=== PATIENT | male | born 1960 | race Caucasian/White ===

== ENCOUNTER → 2024-08-15 | Outpatient (CLI) | payer MEDICARE, MEDICAID, SELFPAY ==
--- NOTE | 2024-08-15 16:17 | MRI_ITS ---
PROCEDURE: SPINE LUMBAR (ROUTINE) 08/15/2024 REASON FOR EXAM: PAIN TECHNIQUE: Multiplanar and multisequence images were obtained without IV contrast administration. COMPARISON: Radiographs on 06/27/2024. FINDINGS: Moderate chronic changes of Scheuermann's disease. Moderate chronic changes of Baastrup's disease. Multilevel disc dehydration. Multilevel disc space narrowing with diffuse spondylosis. Spinal stimulator device is noted. There is normal signal intensity from the visualized bone marrow without evidence of replacement or acute fracture. The conus is unremarkable. Straightening of the lumbar lordosis, probably muscular spasm and pain. Evaluation of the individual levels revealed the following: L5-S1: There is grade 1 retrolisthesis measuring 3.2 mm. Mild diffuse disc bulge. Superimposed broad-based left posterolateral/foraminal disc protrusion measuring 5.7 mm. Bilateral facet joint arthropathy and ligamentum flavum hypertrophy. The spinal canal is not narrowed. There is mild right and moderate left neural foramina narrowing. L4-5: There is mild diffuse disc bulge. Bilateral facet joint arthropathy and ligamentum flavum hypertrophy. The spinal canal is mildly narrowed. There is moderate bilateral neural foramina narrowing. L3-4: There is mild diffuse disc bulge. Facet joint arthropathy and ligamentum flavum hypertrophy. The spinal canal is moderately narrowed. There is moderate bilateral neural foramina narrowing. L2-3: There is moderate diffuse disc bulge. Facet joint arthropathy and ligamentum flavum hypertrophy. The spinal canal is moderately narrowed. There is moderate bilateral neural foramina narrowing. L1-2: There is mild diffuse disc bulge. Bilateral facet joint arthropathy and ligamentum flavum hypertrophy. The spinal canal is not narrowed. There is mild bilateral neural foramina narrowing. T12-L1: There is mild diffuse disc bulge. Bilateral facet joint arthropathy and ligamentum flavum hypertrophy. The spinal canal is not narrowed. There is mild bilateral neural foramina narrowing. Normal visualized paraspinous soft tissue structures. MRI/Spine Lumbar (Routine) IMPRESSION: Spondylosis. Degenerative disc disease. Reading [facility]
== END | disposition home or self-care (01) ==
PROVIDERS: Referring Provider Student in an Organized Health Care Education/Training Program; Visit Provider Student in an Organized Health Care Education/Training Program
DX: M51.369 Other intervertebral disc degeneration, lumbar region without mention of lumbar back pain or lower extremity pain (principal)
CPT/HCPCS: 72148

== ENCOUNTER 2024-12-09 15:42 | Inpatient (IN) | payer MEDICARE, MEDICAID, SELFPAY ==
--- NOTE | 2024-11-26 13:12 | EKG12_ITS ---
Test Reason : PREOP Blood Pressure : */* mmHG Vent. Rate : 58 BPM Atrial Rate : 58 BPM P-R Int : 158 ms QRS Dur : 100 ms QT Int : 418 ms P-R-T Axes : 42 -2 3 degrees QTcB Int : 410 ms Sinus bradycardia Cannot rule out Inferior infarct , age undetermined Abnormal ECG No previous ECGs available Confirmed by ALONSO ROGERS, GRAEME ([id number]), technical editor CECE NARVAEZ ([id number]) on 11/27/2024 8:13:05 AM Referred By: Amado Rivera Confirmed By: GRAEME GUPTA MD
[2024-11-26 14:09] LABS: Hematocrit 38.3 % (40-54); Hemoglobin 12.5 g/dL (13.0-16.5); Immature Granulocytes Count 0.010 X10^3/uL (0.0-0.0); Mean Corp Hgb Conc 32.6 g/dL (32-36); Mean Corpuscular Volume 87.8 fL (80-94); Mean Platelet Vol. 11.1 fl (6.2-12.0); NRBC Flagged by Analyzer 0 % (0-5); Platelet Count 262 K/mm3 (150-450); RBC Distribution Width CV 14.8 % (11.6-14.6); RBC Distribution Width SD 48.1 fl (35.1-43.9); Red Blood Count 4.36 M/mm3 (4.6-6.2); White Blood Count 3.8 K/mm3 (4.4-11.0)
[2024-11-26 15:03] LABS: Anion Gap 11 (5-15); BUN 9 mg/dL (4-19); BUN/Creat Ratio 8.1 RATIO (10-20); Calcium,Total 9.3 mg/dL (7.6-11.0); Carbon Dioxide 25.4 mmol/L (21.0-32.0); Chloride 104 mmol/L (98-108); Glucose 95 mg/dL (70-99); Magnesium 2.1 mg/dL (1.5-2.2); Potassium 4.4 mmol/L (3.3-5.1)
--- NOTE | 2024-11-27 14:56 | PAT.ANE_ITS ---
Pre-Assessment Diagnosis/Proposed Procedure Planned Operative Procedure(s): ERAS, 360 Lumbar Fusion L2-3, L3-4 and L4-5 Anesthesia History Anesthesia History - production troubleshooter: Anesthesia History - production troubleshooter Hx Hospitalization No 11/25/24 10:52 Any Problems With Anesthesia No 11/25/24 10:52 Cholinesterase deficiency No 11/25/24 10:52 You/Your Family Experience No 11/25/24 10:52 fever (hyperthermia) with Relationship Recent Exposure to Contagious Disease Does patient have nerve Yes: BACK STIMULATOR- 11/25/24 10:52 stimulator INSTRUCTOR TO TURN OFF DOS Patient instructed to have device shut off --Does patient have Pacemaker or ICD? When Was Last Pacemaker Check QUESTION #4 FULL TEXT: You/Your Family Experience fever (hyperthermia) with Anesthesia Last Oral Intake Last Oral intake: Last Oral Intake NPO since Meds taken in AM with sips of water? Meds patient instructed to take am of surgery PONV PONV - production troubleshooter: PONV - production troubleshooter Female No 11/25/24 10:52 HX of Motion Sickness No 11/25/24 10:52 HX of N/V After Surgery No 11/25/24 10:52 Non-Smoker Yes 11/25/24 10:52 Duration of Surgery greater Yes 11/25/24 10:52 than 60 minutes Number of Risk Factors 2 11/25/24 10:52 PONV Score Moderate Risk 11/25/24 10:52 Height & Weight Height & Weight: Anesthesia: Height & Weight Height 6 ft 5 in 08/22/24 14:25 Respiratory Assessment Respiratory Assessment - production troubleshooter: Respiratory Tract Infection Hx - production troubleshooter Hx Respiratory Tract Infection No 11/25/24 10:52 STOP Sleep Apnea STOP Sleep Apnea - production troubleshooter: STOP Sleep Apnea - production troubleshooter Hx Hypertension Yes: CONTROLLED ON MEDS 11/25/24 10:52 Hx Sleep Apnea Yes 11/25/24 10:52 CPAP Yes 11/25/24 10:52 BIPAP No 11/25/24 10:52 Do you snore loudly (louder than talking or can be heard Do you often feel tired/ fatigued/ sleepy during daytime? Has anyone observed you stop breathing during sleep? STOP Results Positive 11/25/24 10:52 QUESTION #5 FULL TEXT : Do you snore loudly (louder than talking or can be heard through closed doors)? Tobacco Use History Tobacco Use History - production troubleshooter: Tobacco Use History - production troubleshooter Tobacco Use Smoking Status Never smoker 11/25/24 10:52 Hx Tobacco Use No 11/25/24 10:52 Years Smoking Packs Smoked per Day Smoking Cessation Date was within the last 15 years Hx Smoking Cessation Date Hx Smoking Cessation Counseling Hematologic Medial History Hematologic Hx - production troubleshooter: Hematologic Medical Hx - microsoft dynamics ax developer Hx of Blood Transfusion No 11/25/24 10:52 Hx of Transfusion in last 3 No 11/25/24 10:52 Months Date of Last Transfusion (if within last 3 months) Ever experience any problems No 11/25/24 10:52 with transfusion(s)? Specify any problems Hx of Preganancy in last 3 N/A 11/25/24 10:52 Months Nurse Filling Out Transfusion VCHRISTIN 11/25/24 10:52 & Questions: Date: 11/25/24 11/25/24 10:52 Time: 10:54 11/25/24 10:52 Patient unable to answer at this time (ie. confused, unrespo /Reproduction History /Reproductive History - production troubleshooter: /Reproductive Hx- production troubleshooter Hx Now No 11/25/24 10:52 Gestational Age (in weeks): EDC: Hx Hx Para Hx Section SAB No 11/25/24 10:52 [facility] Medical History (Updated 11/25/24 @ 10:51 by Mary Del Castillo) Wears glasses Depression Anxiety Arthritis Back pain Injury of back Gastric reflux CPAP (continuous positive airway pressure) dependence Sleep apnea Hypertension Foraminal stenosis of lumbar region Ulcer at site of surgical anastomosis following bypass of stomach Fusion of toes of left foot Amputated right leg High blood pressure Home Medications ?Medication ?Instructions ?Recorded ?Last Taken ?Type cariprazine 1.5 mg capsule 1.5 mg PO QDAY ANTIDEPRESSA NT 06/27/24 Unknown History (Vraylar) celecoxib 200 mg capsule 400 mg PO BID PAIN 06/27/24 Unknown History dextromethorphan IR 45 1 tab PO QAM DEPRESSION 06/05 06/28 Unknown History mg-bupropion ER 105 mg biphasic tablet (Auvelity) amlodipine 5 mg tablet 5 mg PO DAILY BP 11/25/24 Un known History benazepril 40 mg tablet 40 mg PO DAILY BP 11/25/24 U nknown History buprenorphine 15 mcg/hour weekly 1 patch transdermal Q WEEK PAIN 11/25/24 Unknown History transdermal patch omeprazole 40 mg capsule,delayed 40 mg PO BID GERD Unknown History release pregabalin 300 mg capsule 300 mg PO BID PAIN 11/25/24 Unknown History tamsulosin 0.4 mg capsule 0.4 mg PO DAILY URINATION Unknown History trazodone 50 mg tablet 100 mg PO QHS SLEEP 11/25/24 Unknown History venlafaxine 75 mg capsule,extended 75 mg PO BID NEUROP ATHY 11/25/24 Unknown History release 24 hr Allergy/AdvReac Type Severity Reaction Status Date / Time gabapentin Allergy Severe Halusinatio Verified 11/25/24 10:35 n Corticosteroids AdvReac Severe Other Verified 11/25/24 10:52 (Glucocorticoids) (steroids) Family History Mother No problems noted. Father Heart disease heart attack Surgical History (Updated 11/25/24 @ 10:51 by Mary Del Castillo) Hx of bariatric surgery Hx of surgical procedure Status post right knee replacement Social History Smoking Status: Never smoker alcohol intake: never Audit: Pertinent Findings Pertinent Findings EKG Perinent findings: EKG 11/26/2024. Sinus bradycardia. Recommendation Anesthesia Recommendation Anesthesia recommendation: OPTIMIZED for anesthesia
[2024-12-09] VITALS (18 sets, daily range): BP systolic 130–165; BP diastolic 62–95; PULSE 59–80; RESP 14–18; TEMP 36.6–36.9; O2SAT 96–100; BMI 30.8; BMI 30.7
[2024-12-09] MEDS: Magnesium 1 GM over 15 mins IV (09:17)
[2024-12-09] MEDS: Lactated Ringers 1,000 ML 15 ML IV (09:18)
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
--- NOTE | 2024-12-09 09:54 | PCM.PRE.AN2 ---
ASA Classification* ASA Classification ASA Classification: 2 Assessment & Plan Anesthesia* Anesthesia Assessment Anesthesia Assessment: Discussed sedation and/or anesthesia options, risks, benefits, and alternatives with patient/parents/legal guardian/POA. Questions invited. The patient/parents/legal guardian/POA seems to understand and agrees to proceed with anesthesia plan. Reviewed the physical assessment, medical history, allergy history and patient home medications list prior to surgery/procedure/anesthetic and documented any changes. Performed airway and anesthesia risk assessments. Anesthesia Type Anesthesia Type: General History Source History Obtained from:: Patient and Chart Anesthesia Focused Assessment* Temperature: 98.3 F Pulse Rate: 62 Blood Pressure: 165/95 Respiratory Rate: 16 Pulse Ox: 100 Oxygen Delivery Method: Room Air Airway Assessment Mouth opens: >3 cm Mallampati Score: III Teeth Condition: Missing (Patient has several missing teeth. Rest are tight.) Neck Range of motion (ROM): Limited ROM (Somewhat Decreased) Labs Anesthesia Preop lab: CBC WBC, (4.4-11.0) 3.8 K/mm3 L 11/26/24, 12:59 RBC, (4.6-6.2) 4.36 M/mm3 L 11/26/24, 12:59 Hgb, (13.0-16.5) 12.5 g/dL L 11/26/24, 12:59 Hct, (40-54) 38.3 % L 11/26/24, 12:59 Plt Count, (150-450) 262 K/mm3 11/26/24, 12:59 CHEMISTRY Potassium, (3.3-5.1) 4.4 mmol/L 11/26/24, 12:59 Sodium, (133-145) 141 mmol/L 11/26/24, 12:59 Magnesium, (1.5-2.2) 2.1 mg/dL 11/26/24, 12:59 BUN, (4-19) 9 mg/dL 11/26/24, 12:59 Creatinine, (0.70-1.20) 1.05 mg/dL 11/26/24, 12:59 Glucose, (70-99) 95 mg/dL 11/26/24, 12:59 POC Glucose, (74-106) 75 mg/dL Today, 08:51 COAG Pre-Assessment Diagnosis/Proposed Procedure Planned Operative Procedure(s): ERAS, 360 Lumbar Fusion L2-3, L3-4 and L4-5 Anesthesia History Anesthesia History - general foreman: Anesthesia History - general foreman Hx Hospitalization No 11/25/24 10:52 Any Problems With Anesthesia No 11/25/24 10:52 Cholinesterase deficiency No 11/25/24 10:52 You/Your Family Experience No 11/25/24 10:52 fever (hyperthermia) with Relationship Recent Exposure to Contagious No 12/09/24 09:01 Disease Does patient have nerve Yes: BACK STIMULATOR- 11/25/24 10:52 stimulator INSTRUCTOR TO TURN OFF DOS Patient instructed to have device shut off --Does patient have Pacemaker No 12/09/24 08:45 or ICD? When Was Last Pacemaker Check QUESTION #4 FULL TEXT: You/Your Family Experience fever (hyperthermia) with Anesthesia Last Oral Intake Last Oral intake: Last Oral Intake NPO since 05:00 12/09/24 08:45 Meds taken in AM with sips of Yes 12/09/24 08:45 water? Meds patient instructed to take am of surgery Any additional information?: Yes NPO since: 05:00 (Patient has preop Ensure at 5 AM.) Meds taken in AM with sips of water?: Yes PONV PONV - general foreman: PONV - general foreman Female No 11/25/24 10:52 HX of Motion Sickness No 11/25/24 10:52 HX of N/V After Surgery No 11/25/24 10:52 Non-Smoker Yes 11/25/24 10:52 Duration of Surgery greater Yes 11/25/24 10:52 than 60 minutes Number of Risk Factors 2 11/25/24 10:52 PONV Score Moderate Risk 11/25/24 10:52 Height & Weight Height & Weight: Anesthesia: Height & Weight Height 6 ft 5 in 12/09/24 08:45 Weight: 118 kg 12/09/24 08:45 Body Mass Index (BMI) 30.8 12/09/24 08:45 Respiratory Assessment Respiratory Assessment - general foreman: Respiratory Tract Infection Hx - general foreman Hx Respiratory Tract Infection No 11/25/24 10:52 STOP Sleep Apnea STOP Sleep Apnea - general foreman: STOP Sleep Apnea - general foreman Hx Hypertension Yes: CONTROLLED ON MEDS 11/25/24 10:52 Hx Sleep Apnea Yes 11/25/24 10:52 CPAP Yes 11/25/24 10:52 BIPAP No 11/25/24 10:52 Do you snore loudly (louder than talking or can be heard Do you often feel tired/ fatigued/ sleepy during daytime? Has anyone observed you stop breathing during sleep? STOP Results Positive 11/25/24 10:52 QUESTION #5 FULL TEXT : Do you snore loudly (louder than talking or can be heard through closed doors)? Tobacco Use History Tobacco Use History - general foreman: Tobacco Use History - general foreman Tobacco Use Smoking Status Never smoker 12/03/24 11:01 Hx Tobacco Use No 11/25/24 10:52 Years Smoking Packs Smoked per Day Smoking Cessation Date was within the last 15 years Hx Smoking Cessation Date Hx Smoking Cessation Counseling Hematologic Medial History Hematologic Hx - general foreman: Hematologic Medical Hx - roller print tender Hx of Blood Transfusion No 11/25/24 10:52 Hx of Transfusion in last 3 No 11/25/24 10:52 Months Date of Last Transfusion (if within last 3 months) Ever experience any problems No 11/25/24 10:52 with transfusion(s)? Specify any problems Hx of Preganancy in last 3 N/A 11/25/24 10:52 Months Nurse Filling Out Transfusion VCHRISTIN 11/25/24 10:52 & Questions: Date: 11/25/24 11/25/24 10:52 Time: 10:54 11/25/24 10:52 Patient unable to answer at this time (ie. confused, unrespo /Reproduction History /Reproductive History - general foreman: /Reproductive Hx- general foreman Hx Now No 11/25/24 10:52 Gestational Age (in weeks): EDC: Hx Hx Para Hx Section SAB No 11/25/24 10:52 Active Medications Active Medications: Current Medications Generic Name Dose Route Start Last Admin Trade Name Freq PRN Reason Stop Dose Admin Lactated Ringer's 1,000 mls @ 15 mls/hr 12/09/24 08:30 12/09/24 09:18 IV 15 mls/hr .Q48H VIKTORIA Administration Insulin Human Lispro 1 - 6 unit 12/09/24 07:30 Insulin Lispro 100 Unit/Ml Insuln.Pen SC 12/09/24 18:00 Q4H PRN PRN BG>/= 180, SEE PROTOCOL Protocol PFSH Medical History Wears glasses Depression Anxiety Arthritis Back pain Injury of back Gastric reflux CPAP (continuous positive airway pressure) dependence Sleep apnea Hypertension Foraminal stenosis of lumbar region Ulcer at site of surgical anastomosis following bypass of stomach Fusion of toes of left foot Amputated right leg High blood pressure Home Medications ?Medication ?Instructions ?Recorded ?Last Taken ?Type cariprazine 1.5 mg capsule 1.5 mg PO QDAY ANTIDEPRESSANT 06/27/24 12/09/24 05:00 History (Vraylar) celecoxib 200 mg capsule 400 mg PO BID PAIN 06/27/24 Unknown History dextromethorphan IR 45 1 tab PO QAM DEPRESSION 06/27/24 12/09/24 05:00 History mg-bupropion ER 105 mg biphasic tablet (Auvelity) amlodipine 5 mg tablet 5 mg PO DAILY BP 11/25/24 12/09/24 05:00 History benazepril 40 mg tablet 40 mg PO DAILY BP 11/25/24 12/09/24 05:00 History buprenorphine 15 mcg/hour weekly 1 patch transdermal QWEEK PAIN 11/25/24 Unknown History transdermal patch omeprazole 40 mg capsule,delayed 40 mg PO BID GERD 11/25/24 12/09/24 05:00 History release pregabalin 300 mg capsule 300 mg PO BID PAIN 11/25/24 12/09/24 05:00 History tamsulosin 0.4 mg capsule 0.4 mg PO DAILY URINATION 11/25/24 12/09/24 05:00 History trazodone 50 mg tablet 100 mg PO QHS SLEEP 11/25/24 Unknown History venlafaxine 75 mg capsule,extended 75 mg PO BID NEUROPATHY 11/25/24 12/09/24 05:00 History release 24 hr Allergy/AdvReac Type Severity Reaction Status Date / Time gabapentin Allergy Severe Halusinatio Verified 12/09/24 08:38 n Corticosteroids AdvReac Severe Other Verified 12/09/24 08:38 (Glucocorticoids) (steroids) Family History Mother No problems noted. Father Heart disease heart attack Surgical History Hx of bariatric surgery Hx of surgical procedure Status post right knee replacement Social History Smoking Status: Never smoker alcohol intake: current alcohol intake frequency: holidays/special occasions only substance use type: does not use Review of Systems (Anesthesia) ROS Narrative System reviewed and no additional complaints, except as documented.
[2024-12-09] MEDS: Midazolam 2 MG/2 ML Syringe IV (10:26)
[2024-12-09] MEDS: Cefazolin 1 GM/5 ML Vial 2 GM IV (10:26)
[2024-12-09] MEDS: Lidocaine 1% (5 ml sdv) 5 ML Vial 10 ML IV (10:32)
--- NOTE | 2024-12-09 10:35 | RAD_ITS ---
PROCEDURE: LUMBAR SPINE 2 OR 3 VIEWS 12/09/2024 REASON FOR EXAM: 360 LUMBAR FUSION L2-3 L3-4 L4-5 TECHNIQUE: Procedure Code: RADSPLL Modality: DX Procedure: LUMBAR SPINE 2 OR 3 VIEWS Fluoroscopy time: 80 seconds Total images: 20 COMPARISON: August 15, 2024 FINDINGS: Fluoroscopic spot images were obtained over the lower lumbar spine. It is assumed that the patient has 5 lumbar type vertebral bodies. Initial images show instrumentation at the level of L4/5 followed by placement of a disc spacer. Another place at L2/3 and L3/4. Solitary screw on the right at L3/4. Subsequent placement of pedicle screws and rods at L2, L4 and L5. Alignment is anatomic. RAD/Lumbar Spine 2 or 3 Views IMPRESSION: Fluoroscopic localization and guidance. Correlate with procedural note. Reading Location: [id number]
[2024-12-09] MEDS: fentaNYL 100 MCG/2 ML Ampul 200 MCG IV (12:46)
[2024-12-09] MEDS: TRANEXAMIC ACID 1,000 MG/10 ML ML 2000 MG IV (15:11)
--- NOTE | 2024-12-09 15:49 | PCM.POST.ANE ---
Anesthesia: Postop Eval I Current Vital Signs Temperature: 98.4 F Pulse Rate: 71 Blood Pressure: 130/71 Respiratory Rate: 14 Pulse Ox: 96 Assessment Airway patent: Yes Spontaneous unlabored respirations: Yes nausea: No Vomiting: No Anesthesia Complication: No Fluid Hydration Crystalloid volume administer (ml): 2,300 Total IV fluid infused: 2,300 Progress Note Anesthesia document: Postop Eval 1 completed: Yes
--- NOTE | 2024-12-09 15:54 | OP.PCM_ITS ---
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, stenosis with neurogenic claudication Post-Operative Diagnosis: Same Surgery/Procedure Performed: L2-5 oblique lumbar interbody fusion graphite mill operator: Yes Paint Technician: Carolina Benites Tasks completed by retail administrative assistant: Closing, Removing tissue, Hemostasis: Electrocautery and Retracting Type of Anesthesia: General RN Documented Start/Stop Times: Operation Date: 12/09/24 10:30 Case Time Into Pre-Op 12/09/24 08:23 Out of Pre-Op 12/09/24 10:25 Anesthesia Start 12/09/24 10:26 Into Room 12/09/24 10:26 Procedure Start 12/09/24 11:06 Procedure End 12/09/24 15:38 Anesthesia End 12/09/24 15:44 Out of Room 12/09/24 15:44 Into Recovery 12/09/24 15:46 Procedure Start Time: 11:06 Procedure Stop Time: 15:38 Select all DRAINS/GRAFTS/IMPLANTS that apply: Graft Graft details: Allograft cancellous chips and Implanted device Implanted device details: DePuy cougar lateral lumbar interbody cage?peek Estimated Blood Loss: 50 cc Specimen collected: No Description of surgery: Preoperative diagnosis: 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 L2-3 anterolateral spinal fusion 96090 ? L3-4 anterolateral fusion 42797/51 ? L4-5 anterolateral fusion 46753/51 ? L2-3 insertion of cage 51392 ? L3-4 insertion of cage 79438/51 ? L4-5 insertion of cage 42790/51 ? Bone graft aspirate left iliac crest separate incision ? Allograft cancellous chips Attending Surgeon: Dr. Amado Rivera Estimated blood loss: 50 cc Anesthesia: General Complications: None Indications: Patient is a 64-year-old pleasant gentleman who has had a long history of low back pain and lower extremity radiation, difficulty walking distances. Xrays & MRI revealed 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 with stenosis, prior spondylosis with replacement. After undergoing a prolonged period of nonoperative treatment, the patient elected to undergo surgical decompression & fusion. All surgical options were discussed with the patient including anterior and posterior approaches. All risks and benefits associated with the procedure were explained to the patient. The risks include but are not limited to infection, bleeding, injury to nerves and vessels including major vessels like IVC and aorta, persistent paresthesia, persistent pain, dural tear, need for further procedures, adjacent segment degeneration, pseudoarthrosis, hardware failure, retrograde ejaculation, paralytic ileus, etc. Procedure: The patient was identified in the preoperative holding suite using Unique patient identifiers. Skin was marked, consent was reviewed, and all questions were answered. The patient was then brought back to the operative room. A surgical timeout was performed to make sure correct procedure was being done on the correct patient and all operative room staff were on the same page. General endotracheal anesthesia was then given to the patient. Benitez catheter was inserted. The patient was then carefully positioned in right lateral decubitus position with the left side up on a regular OR table. Axillary roll was placed and all bony prominences were well- padded. Hip positioners were placed in the posterior buttocks and anterior sternal area. The surgical area was prepped and draped in usual fashion. Preoperative antibiotic was injected IV as preoperative antibiotic. A final timeout was then again done just before starting the procedure. A 2 inch incision oblique was taken in the left lower quadrant of the abdomen 2 fingerbreadths away from the iliac crest and the lower ribs. Sharp dissection with Bovie was carried out up to the fascia covering the external oblique. The external oblique, internal oblique and transversus abdominis muscles were split along the muscle fibers and retroperitoneal space was entered. Sponge sticks were utilized to move the bowel and peritoneum mek-nn-bit-way and psoas muscle was exposed staying within the retroperitoneal plane. LiveHealthierframe retractor system was positioned and the retractor blade was applied onto the psoas. The interval between psoas and midline structures was developed and appropriate retractors were placed. Once adequate interval was cleared, a disc space was identified and a marker x-ray was taken. This identified the L4-5 disc level. The prepsoas interval was then traced inferiorly. Annulotomy was done with a long handled knife. Pituitary was used to remove disc material. Curettes were used to prepare the endplates. Disc space spreaders were utilized to distract and increase the disc height. Near complete discectomy was performed. Trials of serially increasing sizes were used. A Jamshidi needle was used to aspirate bone marrow from the left anterior iliac crest through a separate incision and this aspirate was mixed with the allograft bone chips. A Depuy [place] cage of size of the 18 x 55 x 10 mm with 15 degrees lordosis was packed with corticocancellous allograft bone chips mixed with bone marrow aspirate. This was inserted into the L4-5 disc space. The retractors were then repositioned to expose the L3-4 and L2-3 disc and the procedure was repeated with complete discectomy and endplate preparation. Smaller disc distractors were also used to bluntly perform a contralateral annulotomy at all 3 levels. Cage size was 18 x 55 x 10 mm at L3-4 and L2-3. AP and lateral C-arm pictures were taken to confirm good position of the cage. Some bone chips were also packed around the cages. Screw with washer was placed into the lower L2 body with a washer partially covering the cage at L2-3. Hemostasis was confirmed. The retractor blades were removed. Closure was done in layers with a continuous strand of # 1 Vicryl in all muscle layers. 2-0 Vicryl was used for subcutaneous tissue and 4-0 for Monocryl for the skin. Steri-Strips were applied and 4 x 4 gauze and Tegaderm were applied. Panel Sewer Carolina Benites PA-C. My physician sugar laboratory assistant was a vital part of this case. They were important in appropriate retraction during the case, and protection of soft tissues during the procedure. Their intimate knowledge of the case and my steps aided in safe and expedient completion of the procedure as well as appropriate position of the patient during the surgery. They were also vital in assisting with closure under my direct supervision. Surgical Findings: See operative note Complications Complications: No
--- NOTE | 2024-12-09 16:05 | OP.PCM_ITS ---
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, stenosis with neurogenic claudication Post-Operative Diagnosis: Same Surgery/Procedure Performed: L2-5 posterior spinal instrumented fusion sanitary napkin machine tender: Yes Director Operations Broadcast: Carolina Benites Tasks completed by assistant store manager trainee: Closing, Removing tissue, Hemostasis: Electrocautery and Retracting Type of Anesthesia: General RN Documented Start/Stop Times: Operation Date: 12/09/24 10:30 Case Time Into Pre-Op 12/09/24 08:23 Out of Pre-Op 12/09/24 10:25 Anesthesia Start 12/09/24 10:26 Into Room 12/09/24 10:26 Procedure Start 12/09/24 11:06 Procedure End 12/09/24 15:38 Anesthesia End 12/09/24 15:44 Out of Room 12/09/24 15:44 Into Recovery 12/09/24 15:46 Procedure Start Time: 11:06 Procedure Stop Time: 15:38 Select all DRAINS/GRAFTS/IMPLANTS that apply: Graft Graft details: Allograft cancellous chips and Implanted device Implanted device details: [employer] Control Systemser prime pedicle screw instrumentation Estimated Blood Loss: 50 cc Specimen collected: No Description of surgery: Preoperative diagnosis: 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 L2-3 posterior spinal fusion 83821 ? L2-5 posterior pedicle screw instrumentation 30559 ? L3-4 posterior fusion 55735/51 ? L4-5 posterior fusion 64948/51 ? Allograft cancellous chips [id number] Attending Surgeon: Dr. Amado Rivera Estimated blood loss: 50 mL (total for entire case) Anesthesia: General Complications: None Description of procedure: After the anterior procedure was complete, the patient was then turned supine. The patient was then transferred to Christian table in prone position. Back was prepped and draped in usual fashion. C-arm AP view was then taken. C-arm was positioned in a way that L2 was centralized and superior endplate of was parallel to the beam. Spinous process was centered between the pedicles. Midline was marked with skin marker and lateral borders of the pedicles were also marked. Skin marker was also utilized to jorge transversely across the middle of the pedicles at L2. 2 transverse paramedian incisions of 1 inch were placed. The fascia was incised vertically. Finger dissection was utilized to palpate the transverse process and facet joint. Viper Prime screws with towers were inserted and docked onto the transverse processes. This was then slowly moved medially to reach the superior articular process of L2. This was then confirmed on C-arm and then a mallet was utilized to drive the trocar into the pedicle going up to the medial wall of the pedicle on AP view. This was performed both sides. C-arm lateral view confirmed that the tip of the trocar was in the vertebral body, and the screw was advanced into the pedicle and vertebral body. This was repeated similarly at L4 and L5 bilaterally. Screw sizes were 7 x 55 mm at L2, L4 and L5 on both sides. 110 mm precontoured titanium 5.5 mm lordotic mona on both sides were then passed through the screw extensions and reduced down to the screws with the help of [employer] Viper instrumentation system on both sides. AP and lateral view of the C-arm showed good positioning of the screws and cages. Final tightening with the torque screwdriver was then completed. Matthew was utilized to roughen the facet joint at L2-3, L3-4, L4-5 on the right side. Cancellous allograft bone chips mixed with bone marrow aspirate were then placed over this decorticated area. Hemostasis was achieved. Closure was done in layers with 0 Vicryls for the fascia, 2-0 Vicryls for the subcutaneous tissue, and Monocryl for the skin. Dermabond was applied. Dressings were applied covered with Tegaderm. The patient was then turned supine onto a hospital bed. The patient was extubated and taken to PACU in stable condition. The patient tolerated the procedure well and no complications occurred. Depuy [place] cage & Viper Prime minimally invasive pedicle screw instrumentation system was utilized in this case. No dural tear was identified intraoperatively. I was present for the entirety of the case and performed the surgery. Manager Culinary Carolina Benites PA-C. My physician chemistry research assistant was a vital part of this case. They were important in appropriate retraction during the case, and prot ection of soft tissues during the procedure. Their intimate knowledge of the case and my steps aided in safe and expedient completion of the procedure as well as appropriate position of the patient during the surgery. They were also vital in assisting with closure under my direct supervision. Surgical Findings: See operative note Complications Complications: No
--- NOTE | 2024-12-09 17:11 | POSTOPAN2_ITS ---
Anesthesia Postop Eval I Sum Postop Eval Completion status Anesthesia document: Postop Eval 1 completed: Yes Anesthesia Postop Eval I Summary Anesthesia Postop Eval I Summary: Anesthesia Postop Eval I: Assessment Summary Airway patent Yes 12/09/24 15:49 [place] [email or web address] Spontaneous unlabored Yes 12/09/24 15:49 [place] [email or web address].[email or web address] respirations Mental status nausea No 12/09/24 15:49 [place] [email or web address].TNES Vomiting No 12/09/24 15:49 [place] [email or web address].[email or web address] Anesthesia Postop Eval I: Fluid Summary Crystalloid volume administer 2,300 12/09/24 15:49 [place] [email or web address].TNES (ml) Colloids volume administered ( ml) Blood Product volume administered (ml) Total IV fluid infused 2,300 12/09/24 15:49 [place] [email or web address].TNES Anesthesia Postop Eval I: Summary Notes Anesthesia Complication No 12/09/24 15:49 [place] [email or web address].TNES Anesthesia Complication Comment: Post-operative progress note Anesthesia: Postop Eval II Evaluation Mental status: Awake and Calm Pain Level: 5 nausea: No Vomiting: No Progress Note Post-operative progress note: Patient continues to complain of pain despite long-acting and short acting opioids. We will contact Dr. Rivera to see if we can turn back on the neurostimulator that patient was using before. Complications Anesthesia Complication: No
--- NOTE | 2024-12-09 17:11 | PCM.POSTANE2 ---
Anesthesia Postop Eval I Sum Postop Eval Completion status Anesthesia document: Postop Eval 1 completed: Yes Anesthesia Postop Eval I Summary Anesthesia Postop Eval I Summary: Anesthesia Postop Eval I: Assessment Summary Airway patent Yes 12/09/24 15:49 DRUG AND ALCOHOL TREATMENT SPECIALIST.[email or web address] Spontaneous unlabored Yes 12/09/24 15:49 DRUG AND ALCOHOL TREATMENT SPECIALIST.TNES respirations Mental status nausea No 12/09/24 15:49 DRUG AND ALCOHOL TREATMENT SPECIALIST.TNES Vomiting No 12/09/24 15:49 DRUG AND ALCOHOL TREATMENT SPECIALIST.TNES Anesthesia Postop Eval I: Fluid Summary Crystalloid volume administer 2,300 12/09/24 15:49 DRUG AND ALCOHOL TREATMENT SPECIALIST.TNES (ml) Colloids volume administered ( ml) Blood Product volume administered (ml) Total IV fluid infused 2,300 12/09/24 15:49 DRUG AND ALCOHOL TREATMENT SPECIALIST.TNES Anesthesia Postop Eval I: Summary Notes Anesthesia Complication No 12/09/24 15:49 DRUG AND ALCOHOL TREATMENT SPECIALIST.TNES Anesthesia Complication Comment: Post-operative progress note Anesthesia: Postop Eval II Evaluation Mental status: Awake and Calm Pain Level: 5 nausea: No Vomiting: No Progress Note Post-operative progress note: Patient continues to complain of pain despite long-acting and short acting opioids. We will contact Dr. Rivera to see if we can turn back on the neurostimulator that patient was using before. Complications Anesthesia Complication: No
[2024-12-09] MEDS: Cefazolin 2 GM in 0.9% Normal Saline (100mL Bag) 100 ML IV (18:23)
--- NOTE | 2024-12-09 18:50 | PCM.CONS.GEN ---
Assessment & Plan Assessment/Plan (1) Spinal stenosis of lumbar region with neurogenic claudication: PLAN: L2-5 posterior spinal instrumented fusion on this date. PLAN: Plan #HTN - on amlodipine 5mg and benazepril 40mg daily and controlled #anxiety/depression - on cariprazine 1.5mg and dextromethorphan-bupropion 45-105mg daily #GERD - on omeprazole 40mg BID at home and controlled, placed on pantoprazole 40mg twice daily #dysuria - on tamsulosin 0.4mg daily #chronic pain - on pregabalin 300mg twice daily; acute pain managed by primary with scheduled and PRN regimen of analgesia and muscle relaxer #neuropathy - on venlafaxine 75mg twice daily #THOMPSON - uses CPAP, suggested for him to have someone bring in home machine #VTE prophylaxis - per primary HPI Consult Data Date of Consult: 12/09/24 HPI Narrative HPI Narrative: DENNIS REDDY, is a 64 M who presents with 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, stenosis with neurogenic claudication, and had a posterior spinal instrumented fusion today. PMHx of HTN - on amlodipine and benazepril daily, anxiety/depression - on cariprazine and dextromethorphan-bupropion daily, GERD - on omeprazole at home/pantoprazole here twice daily, dysuria - on tamsulosin daily, chronic pain - on pregabalin twice daily, neuropathy - on venlafaxine twice daily, THOMPSON - uses CPAP. PSHx of Oscar-en-Y (6yrs ago and has lost 250LBs, done at [facility] w/), right TKR, implanted spinal nerve stimulator, right BKA d/t trauma. He reports never having been a smoker and drinks alcohol on holidays only. [facility] Medical History Wears glasses Depression Anxiety Arthritis Back pain Injury of back Gastric reflux CPAP (continuous positive airway pressure) dependence Sleep apnea Hypertension Foraminal stenosis of lumbar region Ulcer at site of surgical anastomosis following bypass of stomach Fusion of toes of left foot Amputated right leg High blood pressure Home Medications ?Medication ?Instructions ?Recorded ?Last Taken ?Type cariprazine 1.5 mg capsule 1.5 mg PO QDAY ANTIDEPRESSANT 06/27/24 12/09/24 05:00 History (Vraylar) celecoxib 200 mg capsule 400 mg PO BID PAIN 06/27/24 Unknown History dextromethorphan IR 45 1 tab PO QAM DEPRESSION 06/27/24 12/09/24 05:00 History mg-bupropion ER 105 mg biphasic tablet (Auvelity) amlodipine 5 mg tablet 5 mg PO DAILY BP 11/25/24 12/09/24 05:00 History benazepril 40 mg tablet 40 mg PO DAILY BP 11/25/24 12/09/24 05:00 History buprenorphine 15 mcg/hour weekly 1 patch transdermal QWEEK PAIN 11/25/24 Unknown History transdermal patch omeprazole 40 mg capsule,delayed 40 mg PO BID GERD 11/25/24 12/09/24 05:00 History release pregabalin 300 mg capsule 300 mg PO BID PAIN 11/25/24 12/09/24 05:00 History tamsulosin 0.4 mg capsule 0.4 mg PO DAILY URINATION 11/25/24 12/09/24 05:00 History trazodone 50 mg tablet 100 mg PO QHS SLEEP 11/25/24 Unknown History venlafaxine 75 mg capsule,extended 75 mg PO BID NEUROPATHY 11/25/24 12/09/24 05:00 History release 24 hr Allergy/AdvReac Type Severity Reaction Status Date / Time gabapentin Allergy Severe Halusinatio Verified 12/09/24 08:38 n Corticosteroids AdvReac Severe Other Verified 12/09/24 08:38 (Glucocorticoids) (steroids) Family History Mother No problems noted. Father Heart disease heart attack Surgical History Hx of bariatric surgery Hx of surgical procedure Status post right knee replacement Social History Smoking Status: Never smoker alcohol intake: current alcohol intake frequency: holidays/special occasions only substance use type: does not use ROS Constitutional Constitutional: Denies chills or fever(s) Cardiovascular Cardiovascular: Denies chest pain, dyspnea on exertion or paroxysmal nocturnal dyspnea Respiratory/Chest Respiratory/Chest: Denies cough, shortness of breath at rest or shortness of breath with exertion Gastrointestinal Gastrointestinal: Reports other Details: reports complete BMs daily ; Denies abdominal pain Genitourinary Genitourinary: Reports urinary hesitancy Musculoskeletal Musculoskeletal: Reports back pain and other Details: RLE prosthesis Neurologic Neurologic: Reports abnormal gait; Denies numbness or paresthesias Psychiatric Psychiatric: Reports depression Physical Exam Const alert and oriented x3 General Appearance: cooperative Resp normal respiratory effort and clear to auscultation bilaterally Cardio regular rate, regular rhythm, no murmurs, no rub, no gallops, no clicks and no JVD GI normal to inspection, nondistended, normoactive bowel sounds, soft to palpation and non-tender Neuro oriented x3 Psych affect normal Medical Records Data Attestation: I reviewed the patient's medical records Lab / Micro Data Attestation: I reviewed the patient's lab results. 11/26/24 12:59 11/26/24 12:59 Labs: Laboratory Results - last 24 hr 12/09/24 08:51: POC Glucose 75
[2024-12-09] MEDS: 0.9% Saline Lock 10 ML Syringe IV (20:33)
[2024-12-09] MEDS: Senna/Docusate Sodium 1 Tablet 2 TABLET PO (22:28)
[2024-12-10 01:30] VITALS: BP 148/68; PULSE 95; RESP 16; TEMP 36.9; O2SAT 95
[2024-12-10] MEDS: Cefazolin 2 GM in 0.9% Normal Saline (100mL Bag) 100 ML IV (02:27)
[2024-12-10] MEDS: 0.9% Saline Lock 10 ML Syringe IV (02:29)
[2024-12-10 06:06] VITALS: BP 131/67; PULSE 65; RESP 16; TEMP 37.2; O2SAT 96
--- NOTE | 2024-12-10 06:30 | RAD_ITS ---
PROCEDURE: LUMBAR SPINE 2 OR 3 VIEWS 12/10/2024 REASON FOR EXAM: S/P LUMBAR FUSION TECHNIQUE: Procedure Code: RADSPLL Modality: DX Procedure: LUMBAR SPINE 2 OR 3 VIEWS COMPARISON: Earlier the same day, December 09, 2024 FINDINGS: Vertebrae: Patient has undergone posterior fusion at L2, L4 and L5 with pedicle screws and rods. Disc spacers are shown at L2/3, L3/4, L4/5. Moderate disc space narrowing L5/S1 Alignment: Anatomic alignment Other: Thoracic neurostimulator over the lower lumbar spine. RAD/Lumbar Spine 2 or 3 Views IMPRESSION: Anatomic alignment status post fusion. No complication. Reading Location: [id number]
[2024-12-10 06:37] LABS: Hematocrit 32.2 % (40-54); Hemoglobin 10.9 g/dL (13.0-16.5); Immature Granulocytes Count 0.050 X10^3/uL (0.0-0.0); Mean Corp Hgb Conc 33.9 g/dL (32-36); Mean Corpuscular Volume 84.7 fL (80-94); Mean Platelet Vol. 10.8 fl (6.2-12.0); NRBC Flagged by Analyzer 0 % (0-5); Platelet Count 194 K/mm3 (150-450); RBC Distribution Width CV 15.5 % (11.6-14.6); RBC Distribution Width SD 47.8 fl (35.1-43.9); Red Blood Count 3.80 M/mm3 (4.6-6.2); White Blood Count 9.8 K/mm3 (4.4-11.0)
[2024-12-10 06:52] LABS: Anion Gap 10 (5-15); BUN 14 mg/dL (4-19); BUN/Creat Ratio 15.2 RATIO (10-20); Calcium,Total 8.7 mg/dL (7.6-11.0); Carbon Dioxide 25.6 mmol/L (21.0-32.0); Chloride 104 mmol/L (98-108); Estimated Creatinine Clearance 111.84 ml/min (50-250); Glucose 123 mg/dL (70-99); Potassium 4.1 mmol/L (3.3-5.1)
--- NOTE | 2024-12-10 07:25 | PCM.PN.HOSP ---
Subjective Subjective Patient overall states he is feeling well. Awaiting flatus so he can go home. He states sometimes this is a problematic for him due to his history of bariatric issues. Denies any issues from my standpoint I did discuss with him his labs and vital signs look good Objective Data Objective Data Vital Signs: Vital Signs Temp Pulse Resp BP Pulse Ox O2 Del Method O2 Flow Rate 98.9 F 65 16 131/67 H 96 Nasal Cannula 2 12/10/24 06:06 12/10/24 06:06 12/10/24 06:06 12/10/24 06:06 12/10/24 06:06 12/10/24 07:24 12/10/24 07:24 Oxygen Flow Rate (L/min) 2 Oxygen Delivery Method Nasal Cannula Weight: 118 kg Body Mass Index (BMI) 30.7 Intake & Output: Intake and Output for Last 24 Hours 12/08/24 12/09/24 12/10/24 23:59 23:59 23:59 Intake Total 1212 / 1212 110 / 110 Output Total 750 / 750 250 / 250 Balance 462 / 462 -140 / -140 Lab / Micro Data 12/10/24 06:05 12/10/24 06:05 Labs: Laboratory Results - last 24 hr 12/09/24 08:51: POC Glucose 75 12/10/24 06:05: WBC 9.8, RBC 3.80 L, Hgb 10.9 L, Hct 32.2 L, MCV 84.7, MCH 28.7, MCHC 33.9, RDW Std Deviation 47.8 H, RDW Coeff of Phan 15.5 H, Plt Count 194, MPV 10.8, Immature Gran % (Auto) 0.500, Neut % (Auto) 81.2 H, Lymph % (Auto) 7.8 L, [place] % (Auto) 10.3 H, Eos % (Auto) 0.0, Baso % (Auto) 0.2, Absolute Neuts (auto) 8.0 H, Absolute Lymphs (auto) 0.76 L, Nucleated RBC % 0, Sodium 140, Potassium 4.1, Chloride 104, Carbon Dioxide 25.6, Anion Gap 10, BUN 14, Creatinine 0.95, Estim Creat Clear Calc 111.84, Est GFR (MDRD) Non-Af 90, BUN/Creatinine Ratio 15.2, Glucose 123 H, Calcium 8.7 Micro: Microbiology 11/26/24 12:59 Swab (Method) Nasal Screen MRSA/MSSA - Final Radiography Diagnostic Testing: Radiology Impression Lumbar Spine X-Ray 12/09/24 10:35 IMPRESSION: Fluoroscopic localization and guidance. Correlate with procedural note. Reading Location: [facility] Lumbar Spine X-Ray 12/10/24 06:30 IMPRESSION: Anatomic alignment status post fusion. No complication. Reading Location: [facility] Physical Exam Const alert, oriented x3, no apparent distress and well nourished; Negative for average body habitus Constitutional Narrative: Obese, white male, sitting up in a chair, appears comfortable, nontoxic HEENT head/scalp atraumatic Head and Scalp: normocephalic Resp normal respiratory effort, no retractions, no use of accessory muscles and clear to auscultation bilaterally GI normal to inspection, nondistended, normoactive bowel sounds, soft to palpation and non-tender Extremity Extremity Narrative: Right lower extremity amputee Psych affect normal Psych Narrative: Very pleasant, eye contact is good patient interacts appropriately Assessment & Plan Assessment/Plan (1) Status post lumbar spinal fusion: (2) Spinal stenosis of lumbar region with neurogenic claudication: PLAN: Plan Spinal stenosis of the lumbar spine with neurogenic claudication - Postop L2-L5 posterior spinal fusion - Pain management per primary service - Bowel regimen per primary service - DVT prophylaxis per primary service - PT/OT per primary service Essential hypertension - Continue home benazepril - Continue home amlodipine BPH with obstruction - Continue Flomax Neuropathy - Continue home Lyrica GERD - Continue home PPI Chronic pain - Continue home medications per primary service recommendation Anxiety/depression - Continue home medication Right lower extremity amputee - Stable DVT prophylaxis - Per primary service Disposition: -Patient is stable from a medical standpoint for discharge. Discussed with Dr. Alexander and will sign off. Please reconsult if needed. Charges/Coding Visit Charges Inpatient E&M: 09457 Subs Hosp L2
[2024-12-10 07:39] VITALS: BP 130/79; PULSE 69; RESP 16; TEMP 36.7; O2SAT 97
[2024-12-10] MEDS: Senna/Docusate Sodium 1 Tablet 2 TABLET PO (07:45)
[2024-12-10] MEDS: CARIPRAZINE HCL 1.5 MG CAPSULE PO (07:47)
--- NOTE | 2024-12-10 09:05 | PCM.PN.ORT ---
Subjective Subjective Postop day 1 L2-5 fusion. Patient is doing relatively well postoperatively with his pain well-controlled. Patient says that he has just a generalized lower back pain. He also reports a left-sided groin pain. The patient has a right below-knee amputation. Says that after surgery he has not been able to put on the prosthetic due to swelling in the right leg. Says that he has done some standing at bedside. The patient has not yet passed gas. Patient says it is not unusual for him to go 5 days without a bowel movement. Seen with Dr. Rivera. Objective Data Objective Data Vital Signs: Vital Signs Temp Pulse Resp BP Pulse Ox O2 Del Method O2 Flow Rate 98.1 F 69 16 130/79 H 97 Room Air 2 12/10/24 07:39 12/10/24 07:39 12/10/24 07:39 12/10/24 07:39 12/10/24 07:39 12/10/24 07:39 12/10/24 07:24 Oxygen Flow Rate (L/min) 2 Oxygen Delivery Method Room Air Weight: 260 lb 2.327 oz Body Mass Index (BMI) 30.7 Intake & Output: Intake and Output for Last 24 Hours 12/08/24 12/09/24 12/10/24 23:59 23:59 23:59 Intake Total 1212 / 1212 110 / 110 Output Total 750 / 750 250 / 250 Balance 462 / 462 -140 / -140 Lab / Micro Data 12/10/24 06:05 12/10/24 06:05 Labs: Laboratory Results - last 24 hr 12/09/24 08:51: POC Glucose 75 12/10/24 06:05: WBC 9.8, RBC 3.80 L, Hgb 10.9 L, Hct 32.2 L, MCV 84.7, MCH 28.7, MCHC 33.9, RDW Std Deviation 47.8 H, RDW Coeff of Phan 15.5 H, Plt Count 194, MPV 10.8, Immature Gran % (Auto) 0.500, Neut % (Auto) 81.2 H, Lymph % (Auto) 7.8 L, [place] % (Auto) 10.3 H, Eos % (Auto) 0.0, Baso % (Auto) 0.2, Absolute Neuts (auto) 8.0 H, Absolute Lymphs (auto) 0.76 L, Nucleated RBC % 0, Sodium 140, Potassium 4.1, Chloride 104, Carbon Dioxide 25.6, Anion Gap 10, BUN 14, Creatinine 0.95, Estim Creat Clear Calc 111.84, Est GFR (MDRD) Non-Af 90, BUN/Creatinine Ratio 15.2, Glucose 123 H, Calcium 8.7 Micro: Microbiology 11/26/24 12:59 Swab (Method) Nasal Screen MRSA/MSSA - Final Radiography Diagnostic Testing: Radiology Impression Lumbar Spine X-Ray 12/09/24 10:35 IMPRESSION: Fluoroscopic localization and guidance. Correlate with procedural note. Reading Location: [facility] Lumbar Spine X-Ray 12/10/24 06:30 IMPRESSION: Anatomic alignment status post fusion. No complication. Reading Location: [facility] Physical Exam Narrative Neurological examination of the lower extremity shows left leg 5X5 power. Limited strength testing able to be done on the right leg due to below-knee amputation. Physical examination of the back and belly shows Tegaderm and gauze CDI. Const alert, oriented x3 and no apparent distress Assessment & Plan Assessment/Plan (1) Status post lumbar spinal fusion: PLAN: Plan Postop day 1 L2-5 fusion. Patient's pain well-controlled. Obtained reviewed x-rays today which show hardware and bone graft in good position. The patient has not yet passed gas. Dulcolax x 1 ordered. Encouraged the patient to attempt to get his prosthetic on so that he can walk with therapy today. Patient says that he takes Celebrex at home which helps with the swelling so he is able to put on the prosthetic. Meloxicam was canceled with Celebrex being ordered for him. Patient has had a gastric bypass surgery in the past and is not able to take oral NSAIDs however the Celebrex he has been taking for a long time. He will continue this when going home. The patient also says that he gets a buprenorphine patch for pain. Plan is to get this again following surgery. Patient will be sent home with pain meds, discussed that he should not be taking the pain meds with the buprenorphine patch. The patient understands. OARRS reviewed. Continue liquid diet until passes gas. Then advance to regular. Reviewed and educated on the use of the incentive spirometer. Reviewed and educated on back precautions of no bending, lifting, twisting more than 5 pounds. If patient passes gas and is cleared for discharge from therapy he can go home today. Otherwise he will stay another night until gas is passed.
--- NOTE | 2024-12-10 12:21 | CASEMGMT ---
TERESA ARMANDO Assessment: Face to Face with pt for initial transition planning/care coordination assessment. TERESA ARMANDO introduced self and role at [facility], pt voices understanding and consents to assessment. Pt is A&O x4 and answers all questions appropriately at this time. Pt sitting up in chair in no distress. Care providers, pharmacy, and demographics verified/updated. Strata: 1 Admitting Dx: ERAS, 360 Lumbar Fusion L2-3, L3-4, L4-5 PCP: Deja Specialists: Miguel Borrero Pharmacy: [facility] Insurance: [place] [facility] dual advantage, [place] [facility] Prescription Benefit: yes LNOK: Friend, Alyson Living Arrangements: Pt lives with friend in a trailer with a ramp to enter. ADLs: I with ADLs and IADLs. Transportation: Pt drives self and denies concerns with transportation. DME: Ramp, cane, grab bar, shower seat. HHC/SNF: Denies Hx of. Pt states no concerns with going home at time of dc. TERESA ARMANDO discussed FWW at time of DC, therapy recommending. Pt agreeable. Provided list of local DME companies, Pt chose [employer] as provider of choice. Pt states no further concerns/needs. CM to follow. Advised pt to ask CM if any further question/concerns/needs arise, voices understanding. Pt Goal: Home Plan: Home with DME. Vince MOORE CM
--- NOTE | 2024-12-10 13:35 | CASEMGMT ---
Referral sent to [facility] at this time for FWW via [facility] [place].
[2024-12-10 14:24] VITALS: BP 111/76; PULSE 79; RESP 16; TEMP 36.7; O2SAT 98
--- NOTE | 2024-12-10 16:36 | DCINST_ITS ---
Discharge Instructions DC O2, CPAP, BIPAP needs Home O2 Discharge instructions: No Follow Up Care Test Results: Test results from this visit will be discussed in further detail at your follow- up appointment, if applicable. Discharge Plan Admission Admit Date/Time: 12/09/24 15:42 Attending Provider: Amado Rivera Primary Care Provider: SURYA GUAJARDO Consulting Providers: Jani Persaud; Rebecca Valencia Instructions Patient Instructions: Lumbar Fusion Dc Additional Instructions / Restrictions: Keep Tegaderm and gauze clean and dry. If Tegaderm is intact, okay to shower. After 5 days remove Tegaderm and gauze and cover with a Band-Aid. Replace Band- Aid daily thereafter. No bending lifting or twisting. Follow-up in clinic in 2 weeks. Discharge Orders/Prescriptions Prescriptions: New acetaminophen 500 mg Tablet 1,000 mg PO Q6H Qty: 30 0RF methocarbamol 500 mg Tablet 750 mg PO TID PRN (Reason: Pain/spasms) Qty: 60 0RF oxycodone 5 mg Tablet 2.5 - 5 mg PO Q6H PRN (Reason: pain) 7 Days Qty: 28 0RF sennosides-docusate sodium [Stimulant Laxative Plus] 8.6-50 mg Tablet 2 tab PO BID PRN (Reason: constipation) Qty: 14 0RF Continued celecoxib 200 mg capsule 400 mg PO BID Auvelity 45-105 mg tablet, IR and ER, biphasic 1 tab PO QAM Vraylar 1.5 mg capsule 1.5 mg PO QDAY pregabalin 300 mg capsule 300 mg PO BID tamsulosin 0.4 mg capsule 0.4 mg PO DAILY benazepril 40 mg tablet 40 mg PO DAILY amlodipine 5 mg tablet 5 mg PO DAILY venlafaxine 75 mg capsule,extended release 24hr 75 mg PO BID trazodone 50 mg tablet 100 mg PO QHS buprenorphine 15 mcg/hour patch weekly 1 patch transdermal QWEEK omeprazole 40 mg capsule,delayed release(DR/EC) 40 mg PO BID Disposition Disposition (needs filled in before D/C Order can be placed): Home, Self Care
== END 2024-12-10 17:52 | disposition home or self-care (01) | DRG 428 ==
LOC: MS3 16:35
PROVIDERS: Student in an Organized Health Care Education/Training Program; Admitting Provider Orthopaedic Surgery Orthopaedic Surgery of the Spine; Referring Provider Orthopaedic Surgery Orthopaedic Surgery of the Spine; Visit Provider Orthopaedic Surgery Orthopaedic Surgery of the Spine
PROC: 0SG10A0 Fusion of 2 or more Lumbar Vertebral Joints with Interbody Fusion Device, Anterior Approach, Anterior Column, Open Approach (ICD-10-PCS; principal; 2024-12-09 10:00)
DX: M48.062 Spinal stenosis, lumbar region with neurogenic claudication (principal); F32.A Depression, unspecified; I10 Essential (primary) hypertension; Z89.511 Acquired absence of right leg below knee; F41.9 Anxiety disorder, unspecified; G62.9 Polyneuropathy, unspecified; G47.33 Obstructive sleep apnea (adult) (pediatric); K21.9 Gastro-esophageal reflux disease without esophagitis; M46.1 Sacroiliitis, not elsewhere classified; M51.360 Other intervertebral disc degeneration, lumbar region with discogenic back pain only; Z96.651 Presence of right artificial knee joint; Z79.899 Other long term (current) drug therapy
CPT/HCPCS: 36415; 72100; 76000; 80048; 82962; 83036; 83735; 85025; 86850; 86900; 86901; 87077; 87081; 93005; 94668; 97162; 97166; A4648; C1713; A4216; J2405; J3475

== ENCOUNTER → 2024-12-24 | Outpatient (CLI) | payer MEDICARE, MEDICAID, SELFPAY ==
--- NOTE | 2024-12-24 17:10 | RAD_ITS ---
PROCEDURE: LUMBAR SPINE 2 OR 3 VIEWS 12/24/2024 REASON FOR EXAM: POST OP TECHNIQUE: Procedure Code: RADSPLL Modality: DX Procedure: LUMBAR SPINE 2 OR 3 VIEWS COMPARISON: 12/10/2024. FINDINGS: No evidence of acute fracture or dislocation. L2 through L5 posterior fusion and discectomies. A spinal stimulator is present. Moderate degenerative changes of L5-S1. RAD/Lumbar Spine 2 or 3 Views IMPRESSION: L2 through L5 posterior fusion. Spondylosis. Reading Location: [id number]
--- OUTSIDE RECORDS SUMMARY | 2024-12-24 17:18 | XMS RPT_ITS | CCD ---
Author Organization [facility] CliniSyga Care Team Providers Care Mammography Technician Name Role Phone REHANA WINKLER Unavailable Unavailable REHANA WINKLER Unavailable Unavailable Casandra Edhussein Mccabe Primary Care Provider [phone] PHYSICIAN, NOT RECORDED Primary Care Physician U navailable Unavailable Primary Care Provider Justyn SMYTH MD, TANI Neville Attending Unavailable CASANDRA ROGERS, DR [place] Primary Care Unavailable Unavailable Primary Care Provider UnavailJs Kapadia Primary Care Provider Unavailable Primary Care Provider UnavailJs Kapadia MD Primary Care Provider NEAL FUENTES Attending Unavailable Unavailable Primary Care Provider UnavailTONI Moncada Attending Unavailable CASANRDA, EDHUSSEIN Primary Care Unavailable CASANDRA, EDWARD Attending Unavailable CASANDRA, EDWARD Referring Unavailable CASANDRA, EDWARD Primary Care Unavailable CASANDRA, EDWARD Attending Unavailable CASANDRA, EDWARD Referring Unavailable CASANDRA, EDWARD Primary Care Unavailable TONI SERRANO Referring Unavailable CASANDRA, EDWARD Primary Care Unavailable JS GUAJARDO J Primary Care Unavailable CORRIGALL SLAG SKIMMER~[id number], CORRIGALL YENNIFER Att ending Unavailable CORRIGALL SLAG SKIMMER~[id number], CORRIGALL YENNIFER Adm itting Unavailable Carolina Michael Attending Provider [phone] Jada ROGERS, Dr. Douglas Attending Provider Carolina Michael Referring Provider [phone] Amado Rivera MD Attending Provider [phone] CASANDRA ROGERS, DR [place] Primary Care Unavailable CASANDRA ROGERS, DR [place] Attending Unavailable CASANDRA ROGERS, DR [place] Primary Care Unavailable RICK ROGERS, DR WHITLEY Mccabe Attending Unavailable Carolina Michael Attending Physician Miguel ROGERS, Dr. Fischer Attending Physician [facility] Primary Care Physician Unavailab le [facility] Referring Provider Unavailable Jada ROGERS, Dr. Douglas Attending Physician Miguel ROGERS, Dr. Fischer Referring Provider Miguel ROGERS, Dr. Fischer Admitting Physician Miguel ROGERS, Dr. Fischer Nurse Practitioner [facility] Primary Care Physician Cori LARA, Dr. Gunter Nurse Practitioner Erik LARA, Dr. Fernandez Nurse Practitioner Scott SEGURA-Jocelyne Stacy Attending Physician Erik LARA, Dr. Fernandez Attending Physician Delmis, Carolina Attending Unavailable Misael Elias Attending Unavailable Rivera, Amado Attending Unavailable Rivera, Amado Consulting Unavailable Rivera, Amado Admitting Unavailable Rivera, Amado Referring Unavailable LOPEZ, KATE Primary Care Unavailable Rivera, Amado Admitting Unavailable Rivera, Amado Referring Unavailable LOPEZ, KATE Primary Care Unavailable Jocelyne Chavez Attending Unavailable Jani Persaud Consulting Unavailable Rivera, Amado Consulting Unavailable Delmis, Carolina Attending Unavailable Moses Valenciayn Consulting Unavailable ErikMosesyn Attending Unavailable Rivera, Amado Admitting Unavailable Rivera, Amado Referring Unavailable Rivera, Amado Attending Unavailable LOPEZ, KATE Primary Care Unavailable Cori Jani Consulting Unavailable Erik, Rebecca Consulting Unavailable Delmis, Carolina Referring Unavailable Delmis, Carolina Attending Unavailable Rivera, Amado Attending Unavailable Rivera, Amado Attending Unavailable LOPEZ, KATE Primary Care Unavailable Rivera, Amado Attending Unavailable Rivera, Amado Attending Unavailable LOPEZ, KATE Referring Unavailable LOPEZ, KATE Primary Care Unavailable Allergies Allergy Classification Reported Allergen(s) Allergy Type Date of Onset Reaction(s) Facility (3 sources) DULoxetine; Translations: [DULOXETINE HCL] Drug Allergy 02-09-20 19 Other [place], [place] (15 sources) Tetracycline; Translations: [tetracycline] Drug Allergy 02-17-20 16 Other: See Comments, Other, Unknown [facility] (20 sources) gabapentin; Translations: [GABAPENTIN] Drug Allergy 02-17-20 16 Mental Status Change, Unknown, Other [facility] (2 sources) Non-steroidal anti-inflammatory agent; Translations: [NSAIDS (NON-STEROIDAL ANTI-INFLAMMATORY DRUG)] Drug Intolerance 08-16-19 Other: See Comments [facility] (12 sources) Tetracycline Drug Allergy 11-09-19 Unknown [facility] (12 sources) Non-steroidal anti-inflammatory agent Drug Intolerance 08-16-19 Other: See Comments, Other [facility] (1 source) gabapentin Drug Allergy [facility] (1 source) Tetracycline Drug Allergy [facility] (2 sources) Glucocorticoid Receptor Agonists Propensity to adverse reactions 12-04-19 Other [facility] Comment on above: GASTRIC BYPASS-UNABL E TO RECEIVE (1 source) Corticosteroids Drug allergy (disorder) 12-10-19 [facility] (1 source) gabapentin Drug Allergy 12-10-19 [facility] Medications Current Medications Medication Drug Class(es) Dates Sig (Normalized) Sig (Original) acetaminophen 500 mg oral tablet (1 source) Start: 12-10-2024 take 2 tablets by mouth every six hours amLODIPine 5 mg oral tablet (8 sources) Dihydropyridine Calcium Channel Nazanin Start: 11-25-2024 take 1 tablet by mouth once daily Start: 11-14-2022 take 1 tablet by mouth once am LODIPine (NORVASC) 5 mg tablet Take 1 tablet by mouth every afternoon. 0 11/14/2022 Active Comment on above: Take 1 tablet by yan th every afternoon. apremilast 30 mg oral tablet (5 sources) Start: 11-14-2022 take 1 tablet by mouth every twelve hours OTEZLA 30 mg tablet Take 1 tablet by mouth every 12 hours. 0 11/14/2022 Active Comment on above: Take 1 tablet by yan th every 12 hours. benazepril hydrochloride 40 mg oral tablet (20 sources) Angiotensin Converting Enzyme Inhibitor Start: 11-25-2024 take 1 tablet by mouth once daily Start: 12-02-2020 End: 12-02-2021 take 1 tablet by mouth once daily benazepril (LOTENSIN) 20 mg tablet Indications: Primary hypertension Take 1 tablet by mouth once daily. 90 tablet 3 12/02/2020 Active Start: 11-22-2020 take 1 tablet by yan th once daily Benazepril HCl (LOTENSIN) 40 mg tablet Indications: Essential hypertension Take 1 tablet by mouth once daily. 90 tablet 1 11/22/2020 Active Comment on above: Take 1 tablet by yan th once daily. 168 hr buprenorphine 0.015 mg/hr transdermal system (20 sources) Partial Opioid Agonist Start: 11-25-2024 apply 15 ug transdermal route every week Start: 06-27-2024 End: 11-25-2024 apply 10 ug topically every week Buprenorphine 10 mcg/ hour patch weekly Discontinued 1 NMA TOPICAL EVERY WEEK June 27, 2024 12:00am November 25, 2024 10:40am Start: 09-03-2021 End: 10-29-2021 apply 1 dose transdermal route every hour buprenorphine (BUTRANS) 20 mcg/hour ptwk Indications: Lumbar spondylosis , 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 Apply 1 Patch as directed one time a week for 28 days. Do not start before October 01, 2021. 4 Patch 1 10/01/2021 10/20/2021 Discontinued (Cost of medication) Start: 07-07-2021 End: 09-01-2021 buprenorphine (BUTRANS) 20 mcg/hour ptwk Indications: 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 , Lumbar spondylosis Apply 1 Patch as directed one time a week for 56 days. Do not start before July 07, 2021. 4 Patch 1 07/07/2021 08/31/2021 Discontinued Start: 05-05-2021 End: 06-24-2021 buprenorphine (BUTRANS) 20 mcg/hour ptwk Indications: Hereditary and idiopathic peripheral neuropathy Apply 1 Patch as directed one time a week for 30 days. Do not start before May 05, 2021. 4 Patch 1 05/05/2021 06/24/2021 Discontinued Start: 01-16-2021 buprenorphine (BUTRANS) 15 mcg/hour patch Apply 1 patch(es), Transdermal, q2wk 0 01/16/2021 Active Start: 12-12-2018 buprenorphine 20 MCG/HR PTWK Comment on above: Apply 1 Patch as dir ected one time a week for 56 days. Do not start before July 07, 2021. Apply 1 Patch as dir ected one time a week for 30 days. Do not start before May 05, 2021. Apply 1 Patch as dir ected one time a week for 28 days. Do not start before October 01, 2021. Apply 1 Patch as dir ected one time a week for 28 days. Do not start before September 03, 2021. Apply 1 patch(es), Transdermal, q2wk buprenorphine 15 mcg/hr transdermal film, extended release (1 source) Start: 01-17-20 buprenorphine 15 mcg/hr transdermal film, extended release Apply 1 patch(es), Transdermal, q2wk Start Date: 01/16/21 Status: Ordered busPIRone hydrochloride 7.5 mg oral tablet (5 sources) Start: 10-12-19 take 1 tablet by mouth every twelve hours busPIRone (BUSPAR) 7.5 mg tablet Take 1 tablet by mouth every 12 hours. 0 10/11/2022 Active Comment on above: Take 1 tablet by [facility] every 12 hours. calcipotriene 0.05313 mg/mg topical ointment (5 sources) Vitamin D Analog Start: 08-30-19 calcipotriene (DOVONEX) 0.005 % oint APPLY OINTMENT TOPICALLY TWICE DAILY 0 08/29/2022 Active Comment on above: APPLY OINTMENT TOPIC ALLY TWICE DAILY cariprazine 1.5 mg oral capsule (4 sources) Atypical Antipsychotic Start: 06-28-19 take 1 capsule by mouth once daily celecoxib 200 mg oral capsule (20 sources) Nonsteroidal Anti-inflammatory Drug Start: 06-28-19 take 2 capsules by mouth twice daily Start: 11-14-2022 take 1 capsule by [facility] twice daily at mealtime celecoxib (CELEBREX) 200 mg capsule Take 200 mg by mouth two times a day. Take with food 0 11/14/2022 Active Start: 06-24-2021 End: 01-18-2022 take 1 capsule by mouth twice daily celecoxib (CELEBREX) 200 mg capsule Indications: Lumbar spondylosis Take 1 capsule by mouth twice daily. 60 capsule 2 09/15/2021 10/20/2021 Discontinued Start: 11-21-2018 celecoxib (TAYLOR EBREX) 400 MG capsule Comment on above: Take 1 capsule by [facility] twice daily. Take 200 mg by mouth two times a day. Take with food Dextromethorphan-Bupropion (2 sources) Start: 06-27-2024 Start: 06-27-2024 Dextromethorph an-Bupropion (Auvelity) 45-105 mg tablet, IR and ER, biphasic Active 1 {tbl} PO EVERY MORNING June 27, 2024 12:00am DEPRESSION Complies with drug therapy Dextromethorphan-Bupropion (Auvelity) 45-105 mg tablet, IR and ER, biphasic (2 sources) Start: 06-27-2024 Dextromethorphan-Bupropion (Auvelity) 45-105 mg tablet, IR and ER, biphasic Active 1 {tbl} PO EVERY MORNING June 27, 2024 12:00am diclofenac sodium 0.01 mg/mg topical gel (1 source) Nonsteroid al Anti-infla mmatory Drug Start: 04-26-2023 End: 05-06-2023 Diclofenac Sodium (Voltaren) 1 % gel Indications: Chronic pain of left knee Apply 2 g topically 2 times daily for 10 days. 40 g 0 04/26/2023 05/06/2023 Active docusate sodium 50 mg / sennosides, snf 8.6 mg oral tablet (1 source) Start: 12-10-2024 DULoxetine 20 mg delayed release oral capsule (1 source) Serotonin and Norepineph rine Reuptake Inhibitor Start: 12-05-2018 DULoxetine (CYMBALTA) 20 MG extended release capsule Take 20 mg by mouth 0 12/05/2018 Active 0.4 ml enoxaparin sodium 100 mg/ml prefilled syringe (1 source) Low Molecular Weight Heparin Start: 01-17-2021 End: 02-14-2021 inject 1 dose by subcutaneo us injection once daily Lovenox 40 mg/0.4 mL injectable solution Dose : 40 mg =, Subcutaneous, qDay, X 28 day(s), # 11.2 mL, 0 Refill(s), 02/14/21 10:29:00 EST Start Date: 01/17/21 Stop Date: 02/14/21 Status: Ordered hydrocortisone 25 mg/ml topical cream (1 source) Corticoste roid Start: 10-17-2017 hydrocortisone 2.5 % cream hydrOXYzine hydrochloride 25 mg oral tablet (8 sources) Antihistam ine Start: 12-02-2022 hydrOXYzine HCL (Atarax) 25 mg tablet Take 1 tablet (25 mg) by mouth. 12/02/2022 Active Start: 01-16-2021 hydrOXYzine hy drochloride 50 mg oral tablet Dose : 50 mg = 1 tab(s), Oral, q8h, PRN as needed Start Date: 01/16/21 Status: Ordered Start: 09-03-2019 End: 09-06-2019 take 1 tablet by mouth every eight hours as needed for anxiety hydrOXYzine (ATARAX) 50 MG tablet Take 1 tablet by mouth every 8 hours as needed for Anxiety May sub Vistaril. 10 tablet 0 09/03/2019 09/06/2019 Active methocarbamol 500 mg oral tablet (1 source) Muscle Relaxant Start: 12-10-2024 naloxone hydrochloride 40 mg/ml nasal spray (2 sources) Opioid Antagonist Start: 08-31-2021 End: 09-01-2021 naloxone 4 mg/actuation nasal spray (NARCAN) Indications: Idiopathic peripheral neuropathy , 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 1 Cecil by nasal (alternating) route as directed for 1 day. 1 spray into 1 nostril. Additional doses may be given every 2-3 minutes until emergency arrives. 1 Each 0 08/31/2021 09/01/2021 Active Comment on above: 1 Cecil by nasal (al ternating) route as directed for 1 day. 1 spray into 1 nostril. Additional doses may be given every 2-3 minutes until emergency arrives. omeprazole 40 mg delayed release oral capsule (17 sources) Proton Pump Inhibitor Start: 11-25-2024 take 1 capsule by mouth twice daily Start: 03-08-2020 take 1 capsule by [facility] twice daily omeprazole (PRILOSEC) 40 mg capsule Indications: GERD without esophagitis Take 1 capsule by mouth twice daily. 180 capsule 3 03/08/2020 Active Start: 10-07-2017 omeprazole (RI ILOSEC) 40 MG delayed release capsule Comment on above: Take 1 capsule by mo [facility] twice daily. oxyCODONE hydrochloride 5 mg oral tablet (1 source) Opioid Agonist Start: 12-10-2024 take 2.5-5 mg by mouth every six hours as needed for pain pregabalin 300 mg oral capsule (20 sources) Start: 11-25-2024 take 1 capsule by mouth twice daily Start: 11-08-2023 take 1 capsule by mo [facility] twice daily pregabalin (Lyrica) 300 mg capsule Take 1 capsule (300 mg) by mouth 2 times a day. 11/08/2023 Active Start: 12-09-2021 take 1 capsule by mo [facility] twice daily Pregabalin (LYRICA) 300 mg capsule Indications: Idiopathic peripheral neuropathy , Lumbar spondylosis Take 1 capsule by mouth twice daily for 90 days. 60 capsule 2 12/09/2021 Active Start: 08-31-2021 End: 11-19-2021 take 1 capsule by mouth three times daily Pregabalin (LYRICA) 200 mg capsule Indications: Idiopathic peripheral neuropathy Take 1 capsule by mouth three times daily for 30 days. 90 capsule 1 10/20/2021 11/19/2021 Active Start: 11-12-2020 End: 09-22-2021 take 1 capsule by mouth twice daily Pregabalin (LYRICA) 200 mg capsule Indications: Idiopathic peripheral neuropathy Take 1 capsule by mouth twice daily for 90 days. 60 capsule 2 06/24/2021 08/31/2021 Discontinued Start: 12-11-2018 pregabalin (LY STEPHEN) 150 MG capsule Start: 12-05-2018 pregabalin (LY STEPHEN) 150 MG capsule Take 400 mg by mouth. 0 12/05/2018 Active Comment on above: Take 1 capsule by mo [facility] twice daily for 90 days. Take 1 capsule by mo [facility] twice daily for 30 days. Take 1 capsule by mo uth three times daily for 30 days. QUEtiapine 50 mg oral tablet (6 sources) Atypical Antipsychotic Start: 12-02-2022 QUEtiapine (SEROQUEL) 50 mg tablet Start: 2022 take 1 tablet by yan once daily at bedtime QUEtiapine (SEROquel) 25 mg tablet Take 1 tablet (25 mg) by mouth once daily at bedtime. 2022 Active tadalafil 20 mg oral tablet (13 sources) Phosphodiesterase 5 Inhibitor Start: 12-02-2020 Tadalafil (CIALIS) 20 mg tab(s) Indications: ED (erectile dysfunction) of organic origin Take 1 tablet by mouth as needed. 1-2 hours before sexual intercourse. 30 tablet 5 12/02/2020 Active Comment on above: Take 1 tablet by yan th as needed. 1-2 hours before sexual intercourse. tamsulosin hydrochloride 0.4 mg oral capsule (2 sources) alpha-Adrenergic Nazanin Start: 11-25-2024 take 1 capsule by mouth once daily traZODone hydrochloride 50 mg oral tablet (3 sources) Serotonin Reuptake Inhibitor Start: 11-25-2024 take 2 tablets by mouth at bedtime Start: 09-18-2023 take 1 tablet by yan th once daily at bedtime traZODone (Desyrel) 50 mg tablet Take 1 tablet (50 mg) by mouth once daily at bedtime. 09/18/2023 Active 24 hr venlafaxine 75 mg extended release oral capsule (20 sources) Serotonin and Norepinephrine Reuptake Inhibitor Start: 11-25-2024 take 1 capsule by mouth twice daily Start: 10-28-2022 take 3 capsules by m outh every hour venlafaxine ER (EFFEXOR XR) 75 mg 24 hr capsule Take 3 capsules by mouth every afternoon. 0 10/28/2022 Active Start: 06-24-2021 End: 10-20-2021 take 1 tablet by mouth twice daily venlafaxine (EFFEXOR) 100 mg tablet Indications: Anxiety Take 1 tablet by mouth twice daily. 180 tablet 0 06/24/2021 10/20/2021 Discontinued (Side Effects) Start: 01-16-2021 venlafaxine 15 0 mg oral capsule, extended release Dose : 150 mg = 1 cap(s), Oral, BID Start Date: 01/16/21 Status: Ordered Start: 01-16-2021 venlafaxine ER (EFFEXOR XR) 150 mg 24 hr capsule 150 mg. 0 01/16/2021 Active Start: 01-16-2021 End: 06-24-2021 take 1 capsule by mouth twice daily venlafaxine ER (EFFEXOR XR) 150 mg 24 hr capsule Indications: Anxiety TAKE ONE CAPSULE BY MOUTH TWO TIMES A DAY 180 capsule 0 01/16/2021 06/24/2021 Discontinued Comment on above: Take 1 tablet by yan th twice daily. TAKE ONE CAPSULE BY MOUTH TWO TIMES A DAY 150 mg. Take 3 capsules by m outh every afternoon. Completed/Discontinued Medications Medication Drug Class(es) Dates Sig (Normalized) Sig (Original) acetaminophen 325 mg / oxyCODONE hydrochloride 5 mg oral tablet (2 sources) Opioid Agonist Start: 04-30-2021 End: 06-24-2021 take 1 tablet by mouth once daily as needed for pain oxyCODONE-acetamino phen (PERCOCET) 5-325 mg tablet Indications: Idiopathic peripheral neuropathy Take 1 tablet by mouth once daily as needed for pain (for pain.). 25 tablet 0 04/30/2021 06/24/2021 Discontinued Start: 01-17-2021 End: 01-24-2021 take 1 tablet by mouth every four hours as needed for pain Percocet 5 mg-325 mg oral tablet Dose = 1 tab(s), Oral, q4h, PRN for pain, X 7 day(s), # 42 tab(s), 0 Refill(s), Fracture of fibula Fracture of tibia, 100 Start Date: 01/17/21 Stop Date: 01/24/21 Status: Ordered Comment on above: Take 1 tablet by yan once daily as needed for pain (for pain.). iopamidol (Isovue-370) 76 % injection 75 mL (2 sources) Start: 2023 End: 2023 take 75 mL intravenously once as needed 75 mL, IntraVENous, IMG once PRN, contrast, Starting on Mon11/10/23 at 1030, For 1 dose nortriptyline 10 mg oral capsule (1 source) Tricyclic Antidepressant Start: 2021 take 1 capsule by mouth once daily at bedtime nortriptyline (PAMELOR) 10 mg capsule Take 1 capsule by mouth daily at bedtime. 30 capsule 2 10/20/2021 Active Comment on above: Take 1 capsule by mo [facility] daily at bedtime. 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; Translations: [Neuropathy due to diabetes mellitus] Onset: 04-05-2018 12-28-2018 Chronic Disorders of lipid metabolism (13 sources) Hyperlipidemia; Translations: [Hyperlipidemia, unspecified] Onset: 08-02-2017 11-10-2017 Chronic Esophageal disorders (13 sources) Gastroesophageal reflux disease without esophagitis; Translations: [Gastro-esophageal reflux disease without esophagitis] Onset: 07-14-2017 11-10-2017 Chronic Essential hypertension (20 sources) Essential hypertension; Translations: [Essential (primary) hypertension] Onset: 10-31-2016 Resolved: 11-12-2018 12-28-2018 Chronic Headache; including migraine (4 sources) Headache; Translations: [Headache, unspecified] 11-10-2023 Episodic Headache; including migraine (2 sources) Headache; including migraine; Translations: [Headache, unspecified] Onset: 11-10-2023 Joint disorders and dislocations; trauma-related (13 sources) Chondromalacia of right patella; Translations: [Chondromalacia patellae, right knee] Onset: 08-25-2016 11-10-2017 Chronic Mood disorders (20 sources) Major depression, single episode; Translations: [Major depressive disorder, single episode, unspecified] Onset: 09-21-2017 Resolved: 01-10-2017 11-10-2017 Chronic Nutritional deficiencies (13 sources) Vitamin D deficiency; Translations: [Vitamin D deficiency, unspecified] Onset: 11-07-2023 03-01-2016 Chronic Osteoarthritis (9 sources) Osteoarthritis of multiple joints ; Translations: [Polyosteoarthritis, unspecified] Onset: 02-21-2018 12-28-2018 Chronic Other connective tissue disease (1 source) History of total knee arthroplasty; Translations: [History of total right knee replacement] Onset: 12-15-2017 12-28-2018 Chronic Other connective tissue disease (20 sources) History of right total knee replacement; Translations: [Presence of right artificial knee joint] Onset: 12-15-2017 12-15-2017 Chronic Other connective tissue disease (1 source) Disorder of tendon; Translations: [Unspecified disorder of synovium and tendon, left thigh] Episodic Other connective tissue disease (2 sources) History of lumbar fusion; Translations: [Arthrodesis status] 12-10-2024 Episodic Other connective tissue disease (1 source) Arthrodesis status; Translations: [Arthrodesis status] Onset: 12-23-2024 Episodic Other endocrine disorders (13 sources) Male hypogonadism; Translations: [Testicular hypofunction] Onset: 11-07-2023 03-01-2016 Chronic Other endocrine disorders (8 sources) Hypercortisolism; 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, unspecified] Onset: 11-10-2023 11-10-2023 Chronic Other endocrine disorders (1 source) Alton's syndrome, unspecified; 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, unspecified (HCC)] Onset: 11-10-2023 Chronic Other hereditary and degenerative nervous system conditions (1 source) Impaired cognition; Translations: [Mild cognitive impairment, so stated] 07-04-2023 Chronic Other inflammatory condition of skin (13 sources) Rosacea; Translations: [Rosacea, unspecified] Onset: 11-07-2023 03-01-2016 Chronic Other liver diseases (13 sources) Steatosis of liver; Translations: [Fatty (change of) liver, not elsewhere classified] Onset: 04-28-2017 11-10-2017 Chronic Other nervous system disorders (1 source) Chronic pain; Translations: [Other chronic pain] Onset: 01-17-2021 Chronic Other nervous system disorders (3 sources) Idiopathic peripheral neuropathy; Translations: [Hereditary and idiopathic neuropathy, unspecified] Chronic Other nervous system disorders (20 sources) Disorder of the peripheral nervous system; Translations: [Hereditary and idiopathic neuropathy, unspecified] Onset: 02-17-2016 02-17-2016 Chronic Other nervous system disorders (2 sources) Other chronic pain; Translations: [Other chronic pain] Onset: 04-26-2023 Chronic Other non-traumatic joint disorders (1 source) Osteophyte, vertebrae; Translations: [OSTEOPHYTE VERTEBRAE] Onset: 01-29-2024 Chronic Other non-traumatic joint disorders (1 source) Shoulder pain; Translations: [Pain in right shoulder] Episodic Other nutritional; endocrine; and metabolic disorders (13 sources) Obese class I; Translations: [Obesity, unspecified] Onset: 03-16-2018 03-16-2018 Chronic Residual codes; unclassified (13 sources) Postprocedural state finding; Translations: [Presence of other specified functional implants] Onset: 12-04-2019 12-04-2019 Chronic Residual codes; unclassified (6 sources) Amnesia; Translations: [Other amnesia] 06-20-2023 Episodic Spondylosis; intervertebral disc disorders; other back problems (20 sources) Lumbar spondylosis; Translations: [Spondylosis without myelopathy or radiculopathy, lumbar region] Onset: 03-14-2018 Chronic Spondylosis; intervertebral disc disorders; other back problems (20 sources) Lumbosacral radiculopathy; Translations: [Radiculopathy, lumbosacral region] Onset: 12-15-2017 12-15-2017 Episodic Unclassified (1 source) OTH IVD DEG LB W DISC BCK PAIN ONLY; Translations: [OTH IVD DEG LB W DISC BCK PAIN ONLY] Onset: 01-29-2024 Unclassified (1 source) LOW BACK PAIN, UNSPECIFIED; Translations: [LOW BACK PAIN, UNSPECIFIED] Onset: 01-29-2024 Unclassified (1 source) Other intervertebral disc degeneration, lumbar region without mention of lumbar back pain or lower extremity pain; Translations: [Other intervertebral disc degeneration, lumbar region without mention of lumbar back pain or lower extremity pain] Onset: 08-29-2024 Unclassified (1 source) Other intervertebral disc degeneration, lumbar region with discogenic back pain only; Translations: [Other intervertebral disc degeneration, lumbar region with discogenic back pain only] Onset: 08-29-2024 Past or Other Problems Problem Classification Problem Date Documented Da te Episodic/Chronic Allergic reactions (20 sources) Allergy to antibacterial drug; Translations: [Allergy status to other antibiotic agents status] Onset: 08-25-2016 11-10-2017 Episodic Complication of device; implant or graft (8 sources) Disorders of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 MD Dictated Date: 03/08/2024 9:24:46 AM Prelim Date: 03/08/2024 9:26:44 AM Sign Date: 03/08/2024 9:26:44 AM Ordering Provider: WHITLEY Scruggs ODILIA MASSILLON MRI Lumbar Spine wo contrast on 01-24-2024 MRI Lumbar Spine wo contrast MRI LUMBAR SPINE: CLINICAL INDICATION: Low back pain with lower extremity radiculopathy. TECHNIQUE: Sagittal and transaxial T1 and fast T2-weighted sequences were performed through the lumbar spine, including a sagittal STIR sequence. COMPARISON: None. FINDINGS: Exam quality: There is marked limitation due to susceptibility artifact from a stimulator device. This results and limited signal and diminished spatial resolution. The lowest fully formed disc level is enumerated as L5-S1. Osseous structures: Marginal osteophytes noted about the endplates. There is some T1 and T2 hyperintensity within the endplates at L3-L4, L4-L5 and L5-S1. There is, however, diminished T1 and slight increased T2 signal throughout the lower half of the L2 and upper half of the L3 vertebral body. Intervertebral discs: T12-L1: Diminished height of the disc without apparent bulge or herniation. No significant spinal stenosis or foraminal narrowing. L1-L2: Normal height and disc without bulge or herniation. No spinal stenosis or foraminal narrowing. L2-L3: There is marrow edema within the adjacent endplates along with some T2 hyperintensity within the disc space. This projects into the spinal canal, probably within a bulging disc in a broad-based configuration resulting in mild stenosis in the spinal canal. There is probably foraminal narrowing bilaterally as well greater on the left L3-L4: Desiccation and loss of height of the disc. Minor disc osteophyte complex results in effacement upon the thecal sac without significant spinal stenosis. Facet hypertrophy bilaterally, greater on the left results in moderate foraminal narrowing L4-L5: Desiccation and loss of height. Disc osteophyte complex results in minor stenosis in the spinal canal. Facet hypertrophy is noted as well and there is probably foraminal narrowing but artifact obscures visualization. L5-S1: Desiccation and loss of height. Broad-based disc osteophyte complex projects greater to the left this contacts the left S1 nerve root and results in significant stenosis in the left lateral recess. Facet hypertrophy also greater on the left was contributes to spinal stenosis and results in significant foraminal narrowing on the left. Spinal canal: The conus terminates normally at L1. No identifiable intradural or extradural lesion is identified within the lumbar spinal canal. Paraspinal soft tissues: Limited evaluation. There is no collection surrounding the L2-L3 disc space. IMPRESSION: 1. Abnormal L2-L3 disc level with edema in the adjacent endplates and some T2 hyperintensity within the disc space with a bulging disc but no surrounding fluid collection. Infectious process is considered versus advanced degenerative change 2. Spinal stenosis on the left at L5-S1 with S1 nerve root impingement 3. Foraminal narrowing on the left at L3-L4. CRITICAL TEST RESULT COMMUNICATION: A message was left with Yennifer MORLEY's office at the time of this interpretation. Report Dictated on Authenticated by: Farhad Whitmore On: 01/25/2024 13:35 Read by: FARHAD WHITMORE MD, MD Date: 01/25/2024 13:35 [facility] Comment on above: Order Comment: CONTR AST PER RADIOLOGIST DISCRETION CT ABDOMEN W AND WO IV CONTR Agustín 11-10-2023 CT ABDOMEN W AND WO IV CONTRAST Patient Name: DENNIS TYLER [facility] 1960 [id number] Exam Date/Time: 11/10/2023 11:03 Procedure: CT ABDOMEN W AND WO IV CONTRAST Ordering Provider: GUAJARDO EDWARD Reason For Exam: E24.9 CLINICAL HISTORY: E24.9 COMPARISON: No relevant prior studies are available for comparison. TECHNIQUE: Helical CT images were acquired through the abdomen before and after the intravenous administration of 75 cc Isovue 350 following an adrenal mass protocol. All CT scans at this hospital employ automatic and/or manual dose reduction techniques to keep radiation dose as low as reasonably achievable. FINDINGS: Lower Chest: Subsegmental bibasilar atelectasis. 3 mm calcified granuloma in the right lower lobe. Coronary calcifications. Bowel/Peritoneum: Status post antigastric, antecolic Oscar-en-Y gastric bypass. Excluded stomach fluid-filled, mildly distended to 4.2 cm diameter, and containing trace air. Normal caliber included portions of small and large intestine. No upper abdominal ascites or pneumoperitoneum. Moderate colonic stool burden. Hepatobiliary: Normal hepatic morphology. Bilobar hepatic cysts measuring up to 7 mm. No biliary duct dilation. Noninflamed, bladder. Pancreas: Mild, diffuse atrophy. Lymphatics: Subcentimeter chronic calcifications consistent with granulomas. No splenomegaly or adenopathy. Urinary: Scarred kidneys. No hydronephrosis. Vascular: Normal caliber abdominal aorta. Patent portal system. Miscellaneous: No adrenal nodule. Diffuse of cutaneous edema. Musculoskeletal: Severe lumbar spondylosis. Thoracic spinal stimulator system with the pulse generator in the right gluteal region and the leads extending above the scan range. IMPRESSION: No adrenal nodule. 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 If it would alter management, CT of the abdomen immediately after the administration of oral contrast media would be recommended. Report Dictated on Electronically Signed By: Tommie Fagan MD Electronically Signed Date/Time: 11/10/2023 3:05 PM EDT Hx=Bariatric Surg. 5 yrs. Ago Pt. Sts. Extensive Memory Loss Uncontrolled Blood Pressure Low Testosterone Ca=None Pain Stimulator Normal [facility] CT Abdomen WO and W contrast Gilbert 11-10-2023 No adrenal nodule. 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 If it would alter management, CT of the abdomen immediately after the administration of oral contrast media would be recommended. Report Dictated on Electronically Signed By: Tommie Fagan MD Electronically Signed Date/Time: 11/10/2023 3:05 PM T [facility] Patient Name: DENNIS TYLER : 1960 [id number] Exam Date/Time: 11/10/2023 11:03 Procedure: CT ABDOMEN W AND WO IV CONTRAST Ordering Provider: GUAJARDO EDWARD Reason For Exam: E24.9 CLINICAL HISTORY: E24.9 COMPARISON: No relevant prior studies are available for comparison. TECHNIQUE: Helical CT images were acquired through the abdomen before and after the intravenous administration of 75 cc Isovue 350 following an adrenal mass protocol. All CT scans at this hospital employ automatic and/or manual dose reduction techniques to keep radiation dose as low as reasonably achievable. FINDINGS: Lower Chest: Subsegmental bibasilar atelectasis. 3 mm calcified granuloma in the right lower lobe. Coronary calcifications. Bowel/Peritoneum: Status post antigastric, antecolic Oscar-en-Y gastric bypass. Excluded stomach fluid-filled, mildly distended to 4.2 cm diameter, and containing trace air. Normal caliber included portions of small and large intestine. No upper abdominal ascites or pneumoperitoneum. Moderate colonic stool burden. Hepatobiliary: Normal hepatic morphology. Bilobar hepatic cysts measuring up to 7 mm. No biliary duct dilation. Noninflamed, bladder. Pancreas: Mild, diffuse atrophy. Lymphatics: Subcentimeter chronic calcifications consistent with granulomas. No splenomegaly or adenopathy. Urinary: Scarred kidneys. No hydronephrosis. Vascular: Normal caliber abdominal aorta. Patent portal system. Miscellaneous: No adrenal nodule. Diffuse of cutaneous edema. Musculoskeletal: Severe lumbar spondylosis. Thoracic spinal stimulator system with the pulse generator in the right gluteal region and the leads extending above the scan range. [facility] Tommie Fagan MD - 11/10/2023 Patient Name: DENNIS TYLER : 1960 Exam Date/Time: 11/10/2023 11:03 Procedure: CT ABDOMEN W AND WO IV CONTRAST Ordering Provider: GUAJARDO EDWARD Reason For Exam: E24.9 CLINICAL HISTORY: E24.9 COMPARISON: No relevant prior studies are available for comparison. TECHNIQUE: Helical CT images were acquired through the abdomen before and after the intravenous administration of 75 cc Isovue 350 following an adrenal mass protocol. All CT scans at this hospital employ automatic and/or manual dose reduction techniques to keep radiation dose as low as reasonably achievable. FINDINGS: Lower Chest: Subsegmental bibasilar atelectasis. 3 mm calcified granuloma in the right lower lobe. Coronary calcifications. Bowel/Peritoneum: Status post antigastric, antecolic Oscar-en-Y gastric bypass. Excluded stomach fluid-filled, mildly distended to 4.2 cm diameter, and containing trace air. Normal caliber included portions of small and large intestine. No upper abdominal ascites or pneumoperitoneum. Moderate colonic stool burden. Hepatobiliary: Normal hepatic morphology. Bilobar hepatic cysts measuring up to 7 mm. No biliary duct dilation. Noninflamed, bladder. Pancreas: Mild, diffuse atrophy. Lymphatics: Subcentimeter chronic calcifications consistent with granulomas. No splenomegaly or adenopathy. Urinary: Scarred kidneys. No hydronephrosis. Vascular: Normal caliber abdominal aorta. Patent portal system. Miscellaneous: No adrenal nodule. Diffuse of cutaneous edema. Musculoskeletal: Severe lumbar spondylosis. Thoracic spinal stimulator system with the pulse generator in the right gluteal region and the leads extending above the scan range. IMPRESSION: No adrenal nodule. 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 If it would alter management, CT of the abdomen immediately after the administration of oral contrast media would be recommended. Report Dictated on Electronically Signed By: Tommie Fagan MD Electronically Signed Date/Time: 11/10/2023 3:05 PM EDT [facility] Radiology Study observation (narrative) [facility] CT Abdomen WO and W contrast IVOrdered By: Tommie Fagan on 11-10-2023 [employer] Work Phone: CT HEAD W IV CONTRASTon CT HEAD W IV CONTRAST Patient Name: DENNIS TYLER : 1960 [facility] [id number] Exam Date/Time: 11/10/2023 11:03 Procedure: CT HEAD W IV CONTRAST Ordering Provider: GUAJARDO EDWARD Reason For Exam: e24.9, r79.89, r51.9, r41.3 EXAMINATION: CT HEAD W IV CONTRAST CLINICAL HISTORY: Headaches and memory loss COMPARISON: None TECHNIQUE: Thin axial imaging of the head was performed with intravenous contrast. Dose reduction was employed with automated exposure control. FINDINGS: No mass or acute hemorrhage. No evidence of acute infarct. No abnormal parenchymal enhancement. Mild generalized brain parenchymal volume loss with normal caliber ventricles. No focal brain parenchymal abnormalities are identified. There is calcified atherosclerotic plaque in the carotid siphons and left vertebral artery. The skull, included paranasal sinuses and orbits are within normal limits. IMPRESSION: No significant intracranial abnormalities. Report Dictated on Electronically Signed By: Sharyn Blood MD Electronically Signed Date/Time: 11/10/2023 11:36 AM EDT Pt. Headaches and Memory Loss Pt. Sts. Memory loss started 10-15 yrs. 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 No Trauma Normal [facility] CT Head W contrast Gilbert No significant intracranial abnormalities. Report Dictated on Electronically Signed By: Sharyn Blood MD Electronically Signed Date/Time: 11/10/2023 11:36 AM EDT [facility] Patient Name: DENNIS TYLER : 1960 [id number] Exam Date/Time: 11/10/2023 11:03 Procedure: CT HEAD W IV CONTRAST Ordering Provider: GUAJARDO EDWARD Reason For Exam: e24.9, r79.89, r51.9, r41.3 EXAMINATION: CT HEAD W IV CONTRAST CLINICAL HISTORY: Headaches and memory loss COMPARISON: None TECHNIQUE: Thin axial imaging of the head was performed with intravenous contrast. Dose reduction was employed with automated exposure control. FINDINGS: No mass or acute hemorrhage. No evidence of acute infarct. No abnormal parenchymal enhancement. Mild generalized brain parenchymal volume loss with normal caliber ventricles. No focal brain parenchymal abnormalities are identified. There is calcified atherosclerotic plaque in the carotid siphons and left vertebral artery. The skull, included paranasal sinuses and orbits are within normal limits. [facility] Sharyn Blood MD - 11/10/2023 Patient Name: DENNIS TYLER : 1960 [id number] Exam Date/Time: 11/10/2023 11:03 Procedure: CT HEAD W IV CONTRAST Ordering Provider: GUAJARDO EDWARD Reason For Exam: e24.9, r79.89, r51.9, r41.3 EXAMINATION: CT HEAD W IV CONTRAST CLINICAL HISTORY: Headaches and memory loss COMPARISON: None TECHNIQUE: Thin axial imaging of the head was performed with intravenous contrast. Dose reduction was employed with automated exposure control. FINDINGS: No mass or acute hemorrhage. No evidence of acute infarct. No abnormal parenchymal enhancement. Mild generalized brain parenchymal volume loss with normal caliber ventricles. No focal brain parenchymal abnormalities are identified. There is calcified atherosclerotic plaque in the carotid siphons and left vertebral artery. The skull, included paranasal sinuses and orbits are within normal limits. IMPRESSION: No significant intracranial abnormalities. Report Dictated on Electronically Signed By: Sharyn Blood MD Electronically Signed Date/Time: 11/10/2023 11:36 AM EDT [facility] Radiology Study observation (narrative) [facility] navya CT Head W contrast IVOrdered By: Sharyn Blood on 11-10-2023 [facility] [employer] Work Phone: Office Visiton 04-26-2023 Follow-up visit [id number] Dennis Tyler 1960 M Date Provider Department Center 04/26/2023 Tin-TONI SERRANO [facility] None Family History Problem Relation Age of Onset Heart disease Father Family Status - Relation Status Age at Father Level of Service:61551 RI OFFICE/OUTPATIENT NEW LOW MDM 30 MINUTES Reason for Visit and Comments: New Patient [542] - Left Knee Normal [facility] PATINSon 04-26-2023 PATINS ADDITIONAL INFORMATION ([email or web address]) KNEE: [email or web address] Normal [facility] Progress Noteon 04-26-2023 Progress Note [facility] [address] [place] [address] [place] [id number] Dept: [phone] Dept Chief Complaint Patient presents with New Patient Left Knee Subjective History of Present Illness: Dennis Tyler is a 62 y.o. male who presents today for evaluation of left knee pain. Location: anteriorly on the patella Onset: chronic, intermittent for 1 year and has been gradually worsening Injury: no Quality: aching, throbbing, and sharp Mechanical symptoms: weakness with instability Radiation of symptoms: no Severity: 2/10 at rest and 10/10 at worst Exacerbating factor(s): knee flexion, squatting, stair navigation Relieving factor(s): rest Timing: all day Imaging to date: X-ray 2023 Treatment to date: PT/OT/HEP: no Ice: no Heat: no Medications: Tylenol: yes, not helpful NSAIDs: no Oral steroids: no Muscle relaxants: no Nerve medications: no Targeted injections: none Assistive devices: none Prior surgery: no Occupation: Disabled Fall risk assessment: Less than 65, not applicable Objective There were no vitals taken for this visit. Physical Exam: General: Alert, well appearing, no acute distress. Respiratory: Breathing comfortably on room air. No respiratory distress. Skin: Warm, dry, intact. No visible rashes or erythema overlying area of focused exam. Right Knee Exam Right knee exam is normal. Left Knee Exam Muscle Strength The patient has normal left knee strength. Tenderness The patient is experiencing tenderness in the medial retinaculum and medial joint line. Range of Motion Extension: normal Flexion: normal Tests Theresa: Medial - negative Lateral - negative Varus: negative Valgus: negative Tyrone: Anterior - negative Drawer: Anterior - negative Pivot shift: negative Other Erythema: absent Sensation: normal Pulse: present Swelling: mild Effusion: no effusion present External Notes No pertinent interval updates Labs No results found for: "HGBA1C" No results found for: "CREATININE" Imaging Images reviewed with patient today X-rays of the left knee were reviewed with the patient. The x-ray showed normal anatomic alignment with no significant degenerative changes about the patellofemoral, medial, or lateral compartments of his left knee joint. There is no significant effusion noted. There was a right knee arthroplasty visible with proximal component showing no complications and distal component showing a slight lucency of the medial tibia and prosthetic interface. EMG/NCT N/A Procedure No procedures completed today Assessment Diagnosis Plan 1. Chronic pain of left knee XR knee 4+ views left Diclofenac Sodium (Voltaren) 1 % gel Plan Activity: No restrictions and activity as tolerated. The patient was provided home exercises for his knees per his preference and we may consider physical therapy if is not improving. Medication(s): We discussed a short course of diclofenac gel to help with his medial sided knee pain Test(s)/Imaging/Ref erral(s): We discussed his x-rays at this visit. If his right knee were to become symptomatic we discussed some proper x-rays of the right knee with multiple views for better assessment. Additional Intervention(s): Follow-up with a phone call update or MyChart message in 2 weeks or consider a sooner visit if needed. We discussed injection treatments including corticosteroids, hyaluronic acid, and [employer]. The patient will also let us know if his right knee should become symptomatic. Follow up: 2 weeks with a phone call update or MyChart message or sooner in office if needed. Follow up if symptoms worsen or fail to improve. Toni Serrano MD 04/26/2023 9:31 AM Please note that portions of this note may have been completed with voice recognition software. Documentation reviewed prior to signing but minor errors in balancer scale may have occurred. Normal [facility] XR KNEE 4+ VIEWS LEFTon 02-2 XR KNEE 4+ VIEWS LEFT Imaging Result: X-rays of the left knee were reviewed with the patient. The x-ray showed normal anatomic alignment with no significant degenerative changes about the patellofemoral, medial, or lateral compartments of his left knee joint. There is no significant effusion noted. There was a right knee arthroplasty visible with proximal component showing no complications and distal component showing a slight lucency of the medial tibia and prosthetic interface. Normal [facility] XR Knee - left 4 [facility] Imaging Result: X-rays of the left knee were reviewed with the patient. The x-ray showed normal anatomic alignment with no significant degenerative changes about the patellofemoral, medial, or lateral compartments of his left knee joint. There is no significant effusion noted. There was a right knee arthroplasty visible with proximal component showing no complications and distal component showing a slight lucency of the medial tibia and prosthetic interface. [facility] Radiology Study observation (narrative) Irais Bhakta navya DISCHFede 05-25-2021 DISCH.[facility] Patient Name: DENNIS TYLER [address] [place] [address] Date of : [address] [address] Unit Number: [id number] Discharge Summary Patient Status: DIS IN Attending Doctor: Sobeida Lopez MD Service Date: 05/25/21927 Discharge Summary Admit Date Admission Date Time: 05/17/21938 Anticipated Discharge Date 05/18/21 Final Dx/Problem List 1. 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 Postop day #1: Vitals are stable, he is afebrile. HandH 9.6/28.8. Acute blood loss anemia, tolerating well. Strict nonweightbearing to the right BKA. PT/OT to see him today. [employer] has been consulted and is to come and make him a rigid removable dressing/ stump cast for the right BKA. Otherwise, daily dressings with Xeroform gauze to incision line, dry gauze, Kerlix wrap and then finished with the stump cast. Patient wants to go home today. Prescription will be provided for Percocet for his pain. Okay for discharge home today once he has his stump cast and once he has an opportunity to work with PT. Follow-up with Dr. Lopez as scheduled on 05/31/2021 at 11:30 AM. 2. Right leg pain Patient Problems Reviewed: Yes Chief Complaint/HPI Right leg pain Reason for Admission Status post right BKA on 05/17/2021 Operations/Procedur es Right BKA 05/17/2021 Hospital Course This is a 60-year-old male who came into [facility] as scheduled and underwent right below the knee amputation with Dr. Lopez. The patient tolerated the procedure well and had no complications during the surgery or the subsequent recovery from anesthesia. They were then taken to the orthopedic unit for further recovery, physical therapy, and occupational therapy. He did well throughout the remainder of his stay without complications or problems. [employer] was consulted to provide/make him a rigid removable dressing/stump cast on postop day 1. Dressing changes were initiated postop day 1 as well with Xeroform gauze to incision line, ABD/gauze pad, Kerlix wrap, and finished with the stump cast. He was doing well from that perspective, PT/OT, nonweightbearing to the right stump. He was able to be discharged home in stable condition postop day 1, 05/18/2021. He will follow-up in the office with Dr. Lopez as scheduled. Vital Signs Vital Signs (Last) Result Date Time Pulse Ox 98 05/18 1126 B/P 131/80 05/18 1126 Temp 97.8 05/18 1126 Pulse 78 05/18 1126 Resp 16 05/18 1126 Pertinent Physical Findings Pertinent physical findings on discharge were that the patient was alert, no acute distress, no shortness breath or chest pain, pain was under control, surgical dressing was dry and intact, and they were in stable condition. Prescriptions Continue taking these medications: Pregabalin* (Lyrica 300MG Cap*) 300 MG CAPSULE 400 MILLIGRAM ORAL EVERY DAY Celecoxib* (celeBREX 200MG CAP*) 200 MG CAPSULE 400 MILLIGRAM ORAL EVERY DAY Instructions: OKAY TO CONT PER DR LOPEZ Omeprazole (PrilOSEC cap) 40 MG CAPSULE. 40 MILLIGRAM ORAL EVERY DAY Buprenorphine (Butrans 20 mCg/hr patch) 1 EACH PATCH.TDWK 1 EACH TRANSDERM EVERY 7 DAYS Instructions: Remove previous patch, MONDAY'S Tadalafil (Cialis) 5 MG TABLET 5 MILLIGRAM ORAL EVERY DAY NEEDED as needed for ED Start taking the following new medications: oxyCODONE HCL/ACETAMINOPHEN* (percoCET 5-325 TAB*) 1 EACH TABLET 1 UDTAB ORAL EVERY 4 HOURS NEEDED as needed for Pain Days = 7 Qty = 40 No Refills Instructions: 1-2 tabs as needed for pain every 4 hours. tiZANidine HCL (ZANAFLEX) (Zanaflex 4 MG Tablet) 4 MG TABLET 4 MILLIGRAM ORAL EVERY 6 HOURS NEEDED as needed for SPASMS Days = 7 Qty = 28 No Refills Referrals Ordered Referrals Orthopedics 06/01/21 For Providers: Sobeida Lopez MD [address] [place] [address] Follow-up with Dr. Lopez on 06/01/2021 at 11:30 AM. Condition: Stable Disposition Home Disclaimer This dictation was created using voice recognition software. Phonetic and/or minor grammatical errors may exist. eSign Date and Time Tani Barney CNP Verified/Reviewed by 05/25/21 2[address] Lopez MD [facility] Anion gap [Moles/Vol] 5 mmol/L Normal 5-16 [facility] Comment on above: Order Comment: Maryanne Goodwin Performed By: #### L [id number], L500.66367 #### [facility] [address] [id number] Calcium [Mass/Vol] 8.8 mg/dL Normal 8.5-10.5 [facility] Comment on above: Order Comment: Campu s: M Result Comment: NOTE NEW NORMAL RANGE DUE TO REAGENT CHANGE Performed By: #### L 500.79348, L500.39589 #### [facility] [place] [address] Chloride [Moles/Vol] 107 mmol/L Normal 98-107 [facility] Comment on above: Order Comment: Campu s: M Performed By: #### L 500.62582, L500.04001 #### [facility] [address] [place] [address] CO2 [Moles/Vol] 28.0 mmol/L Normal 21-32 [facility] Comment on above: Order Comment: Campu s: M Performed By: #### L 500.00982, L5.76434 #### [facility] [address] [place] [address] Creatinine [Mass/Vol] 0.69 mg/dL Normal 0.5-1.4 [facility] Comment on above: Order Comment: Campu s: M Result Comment: NOTE NEW NORMAL RANGE DUE TO REAGENT CHANGE Patients receiving either N-Acetylcysteine (NAC) or Metamizole prior to venipuncture, may have falsely depressed results. Performed By: #### L 500.47796, L5.95836 #### [facility] [address] [place] [address] Glucose [Mass/Vol] 96 mg/dL Normal 70-100 [facility] Comment on above: Order Comment: Campu s: M Result Comment: 70-1 00- Normal Fasting; 100-125 Impaired Fasting; greater than 126 on more than one result- Diabetes. ADA guidelines. Results may be falsely elevated after the administration of Sulfapyridine. Results may be falsely depressed after the administration of Sulfasalazine. Performed By: #### L 500.42223, L5.06769 #### [facility] [place] [id number] Potassium [Moles/Vol] 3.8 mmol/L Normal 3.5-5.1 [facility] Comment on above: Order Comment: Campu s: M Result Comment: Slig ht Hemolysis, Result may be affected. Performed By: #### L 500.00290, L500.36303 #### [facility] [address] [place] [address] Sodium [Moles/Vol] 140 mmol/L Normal 136-145 [facility] Comment on above: Order Comment: Campu s: M Performed By: #### L 500.99462, L500.08484 #### [facility] [address] [place] [address] Urea nitrogen [Mass/Vol] 11 mg/dL Normal 7-26 [facility] Comment on above: Order Comment: Campu s: M Performed By: #### L 500.78876, L500.50748 #### [facility] [address] [place] [address] Urea nitrogen/Creatinine [Mass ratio] 16 mg/mg Normal 15-24 [facility] Comment on above: Order Comment: Campu s: M Performed By: #### L 500.08975, L500.14948 #### [facility] [address] [place] [address] CBC W/DIFFon 05-18-2021 BASO ABS 0.00 K/CU MM Normal 0-0.2 [facility] Comment on above: Order Comment: Campu s: M Performed By: #### L 200.63986 #### [facility] [address] [place], [place] [id number] Basophils/100 WBC (Bld) 0.6 % Normal 0-2 [facility] Comment on above: Order Comment: Campu s: M Performed By: #### L 200.18612 #### [facility] [address] [place], [place] [id number] EOS ABS 0.10 K/CU MM Normal 0-0.5 [facility] Comment on above: Order Comment: Campu s: M Performed By: #### L 200.12580 #### [facility] [address] [place] [address] Eosinophils/100 WBC (Bld) 0.9 % Normal 0-5 [facility] Comment on above: Order Comment: Campu s: M Performed By: #### L 200.01250 #### [facility] [address] [place] [address] Erythrocyte distribution width (RBC) [Ratio] 14.9 % High 11-14.5 [facility] Comment on above: Order Comment: Campu s: M Performed By: #### L 200.77999 #### [facility] [address] [place] [address] Hematocrit (Bld) [Volume fraction] 28.8 % Low 41.0-53.0 [facility] Comment on above: Order Comment: Campu s: M Performed By: #### L [id number] #### [facility] [address] [place] [address] Hemoglobin (Bld) [Mass/Vol] 9.6 g/dL Low 13.5-17.5 [facility] Comment on above: Order Comment: Campu s: M Performed By: #### L 200.01973 #### [facility] [address] [place] [address] IMMATR GRAN ABS 0.00 K/CU MM Normal Less than 2 [facility] Comment on above: Order Comment: Campu s: M Performed By: #### L 200.00038 #### [facility] [address] [place] [address] IMMATURE GRAN % 0.3 % Normal Less than 2 [facility] Comment on above: Order Comment: Campu s: M Performed By: #### L [id number] #### [facility] [address] [place] [address] LYMPH ABS 0.80 K/CU MM Low 0.9-4.4 [facility] Comment on above: Order Comment: Campu s: M Performed By: #### L [id number] #### [facility] [address] [place] [address] Lymphocytes/100 WBC (Bld) 11.9 % Low 20-40 [facility] Comment on above: Order Comment: Campu s: M Performed By: #### L 200.54351 #### [facility] [address] [place] [address] MCHC (RBC) [Mass/Vol] 33.3 g/dL Normal 32.0-36.0 [facility] Comment on above: Order Comment: Campu s: M Performed By: #### L 200.76295 #### [facility] [address] [place] [address] MCV (RBC) [Entitic vol] 87.0 fL Normal 80.0-99.0 [facility] Comment on above: Order Comment: Campu s: M Performed By: #### L 200.16245 #### [facility] [address] [place] [address] MONO ABS 0.70 K/CU MM Normal 0.1-1.1 [facility] Comment on above: Order Comment: Campu s: M Performed By: #### L 200.59326 #### [facility] [address] [place] [address] Monocytes/100 WBC (Bld) 10.2 % High 2-10 [facility] Comment on above: Order Comment: Campu s: M Performed By: #### L [id number] #### [facility] [address] [place] [address] NEUTROPHIL ABS 5.40 K/CU MM Normal 2.0-8.3 [facility] Comment on above: Order Comment: Campu s: M Performed By: #### L [id number] #### [facility] [address] [place] [address] Neutrophils/100 WBC (Bld) 76.1 % High 45-75 [facility] Comment on above: Order Comment: Campu s: M Performed By: #### L [id number] #### [facility] [address] [place] [address] Nucleated RBC/100 WBC (Bld) [Ratio] 0.0 % Normal Less than 1 [facility] Comment on above: Order Comment: Campu s: M Performed By: #### L [id number] #### [facility] [address] [place] [address] Platelet mean volume (Bld) [Entitic vol] 10.6 fL Normal 9.4-12.4 [facility] Comment on above: Order Comment: Campu s: M Performed By: #### L [id number] #### [facility] [address] [place] [address] PLT 232 K/CU MM Normal 150-450 [facility] Comment on above: Order Comment: Campu s: M Performed By: #### L 200.37754 #### [facility] [address] [place] [address] RBC 3.31 M/CU MM Low 4.50-6.00 [facility] Comment on above: Order Comment: Campu s: M Performed By: #### L 200.14694 #### [facility] [address] [place] [address] WBC 7.1 K/CUMM Normal 4.5-11.0 [facility] Comment on above: Order Comment: Campu s: M Performed By: #### L 200.97553 #### [facility] [address] [place] [address] GFR ESTon 05-18-2021 IF AMER Greater than 60 Normal [facility] Comment on above: Order Comment: Campu s: M Performed By: #### L 500.74909, L500.30754 #### [facility] [address] [place], [place] [id number] IF non-AFR AMER Greater than 60 Normal [facility] Comment on above: Order Comment: Campu s: M Performed By: #### L 500.05985, L500.28041 #### [facility] [address] [place] [address] OTARon 05-18-2021 OT Assessment Report Normal [facility] PROG.ORTHOon 05-18-2021 PROG.ORTHO [facility] Patient Name: DENNIS TYLER [address] [place] [address] Date of : [address] [address] Unit Number: [id number] Progress Note-Ortho Patient Status: ADM IN Attending Doctor: Sobeida Lopez MD Service Date: 05/18/21917 Progress Note - Ortho Subjective S: (2 ROS minimum) Respiratory: Denies shortness of breath or cough. Cardiac: Denies chest pain or palpitations. Musculoskeletal: Reports that the pain is under control to the right BKA. Objective Nursing Vitals Vital Signs (Last) Result Date Time Pulse Ox 100 05/18 0400 B/P 140/90 05/18 040 Temp 98.5 05/18 0400 Pulse 71 05/18 0400 Resp 18 05/18 0400 General Appearance Awake, alert, no acute distress. Physical Exam Cardiovascular - Heart is regular rate by radial pulse. Respiratory - nonlabored, regular, even. Musculoskeletal - Dressing is dry and intact to right BKA. Remove dressing for wound inspection and first dressing change. Suture line well approximated. No active drainage. No bloody drainage on surgical bandage that was applied to the incision itself. The rest of the dressing remained dry. Xeroform gauze, gauze applied. Are already to be made today by [employer]. Neurologic - Patient is alert and appropriate. Diagnostic Data Lab 24hr (CBC/BMP Azar) 05/18/21 0523: [Embedded Image Not Available] Anion Gap 5, Est GFR ( Amer) Greater than 60, Est GFR (Non-Af Amer) Greater than 60 , BUN/Creatinine Ratio 16, Glucose 96, Total Calcium 8.8, RBC 3.31 L, MCV 87.0, MCHC 33.3, RDW 14.9 H, MPV 10.6, Immature Gran % (Auto) 0.3, Abs Immat Gran (auto) 0.00, Seg Neutrophils % 76.1 H, Lymphocytes % 11.9 L, Monocytes % 10.2 H, Eosinophils % 0.9, Basophils % 0.6, Neutrophils # 5.40, Lymphocytes # 0.80 L, Monocytes # 0.70, Eosinophils # 0.10, Basophils # 0.00, Nucleated RBCs 0.0 Assessment/Plan Conclusion 1. 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 Postop day #1: Vitals are stable, he is afebrile. HandH 9.6/28.8. Acute blood loss anemia, tolerating well. Strict nonweightbearing to the right BKA. PT/OT to see him today[facility] and is to come and make him a rigid removable dressing/ stump cast for the right BKA. Otherwise, daily dressings with Xeroform gauze to incision line, dry gauze, Kerlix wrap and then finished with the stump cast. Patient wants to go home today. Prescription will be provided for Percocet for his pain. Okay for discharge home today once he has his stump cast and once he has an opportunity to work with PT. Follow-up with Dr. Lopez as scheduled on 05/31/2021 at 11:30 AM. 2. Right leg pain Stable Problems Problems not specifically addressed in the above plan are stable and do not warrant adjustment of the current method of therapy. Collaborating Physician Sobeida Lopez MD Physician Attestation Statement of Attestation I confirm that I have evaluated the patient, reviewed the history and physical, medications, diagnostic results, physical exam, assessment and plan of care of the patient. Disclaimer This dictation was created using voice recognition software. Phonetic and/or minor grammatical errors may exist. eSign Date and Time Tani Barney CNP Verified/Reviewed by 05/18/21921 [facility] Progress Note-Ortho [facility] PTARon 05-18-2021 PT Assessment Report [facility] 05-17-2021 CONSULTATION-H&P [facility] dical [facility] Patient Name: DENNIS TYLER [address] Date of : [address] [place], [place] [address] Unit Number: [id number] CONSULTATION-HandP Patient Status: REG [facility] Attending Doctor: Sobeida Lopez MD Service Date: 05/17/21 1252 History of Present Illness Referring Physician Sobeida Lopez MD History of Present Illness 60-year-old male patient with past medical history of chronic pain is admitted to the Ortho team for right below-knee amputation surgery. Patient is s/p right below-knee amputation. We have been consulted for medical management. Patient was seen and examined in the PACU area. Past Medical/Surgical Hx Past Medical History Chronic pain Past Surgical History ORIF right tibia, total knee replacement, gastric bypass Family/Social History Family Hx Other/Comment CAD, diabetes Substances Denies use of: Alcohol, Tobacco, Recreational Drugs. Advance Directives Advance Directives Full Code Allergies/Home Medications Allergies Coded Allergies: GABAPENTIN (HALLUCINATION 05/14/21) TETRACYCLINE (ANGRY 05/14/21) Home Medications Buprenorphine (Butrans 20 mCg/hr patch) 1 EACH PATCH.TDWK 1 EACH TD Q7DAY, Ref 0 ( Reported) Remove previous patch, MONDAY'S Entered as Reported by JOSE RAMON PEGUERO on 05/14/21 1005 Last Action: Reviewed on 05/17/21835 by LUCY HOUSTON Celecoxib* (celeBREX 200MG CAP*) 200 MG CAPSULE 400 MG PO QDAY, Ref 0 (Reported) OKAY TO CONT PER DR LOPEZ Entered as Reported by JOSE RAMON PEGUERO on 05/14/21 1004 Last Action: Reviewed on 05/17/21835 by LUCY HOUSTON Omeprazole (PrilOSEC cap) 40 MG CAPSULE.DR 40 MG PO QDAY, Ref 0 (Reported) Entered as Reported by JOSE RAMON PEGUERO on 05/14/21 1004 Last Action: Continued on 05/17/21 1251 by DANNA LÓPEZ Pregabalin* (Lyrica 300MG Cap*) 300 MG CAPSULE 400 MG PO QDAY, Ref 0 (Reported) Entered as Reported by JOSE RAMON PEGUERO on 05/14/21 1003 Last Action: Converted on 05/17/21 1251 by DANNA LÓPEZ Tadalafil (Cialis) 5 MG TABLET 5 MG PO QDAYPRN PRN ED, Ref 0 (Reported) Entered as Reported by JOSE RAMON PEGUERO on 05/14/21 1029 Last Action: Reviewed on 05/17/21 0836 by LUCY HOUSTON Inpatient Medications Medications Current Sig/Viktoria Start time Last Medication Dose Route Stop Time Status Admin Acetaminophen 650 MG Q4HPRN PRN 05/17 1000 AC (TYLENOL TAB) PO Hydromorphone HCl 1 MG Q2HPRN PRN 05/17 1000 AC (DILAUDID D.SYR) IV Lactated Ringer's 1,000 ML CONT 05/17 1000 AC (Lactated Ringers) IV Ondansetron HCl 4 MG Q6HPRN PRN 05/17 1000 AC (ZOFRAN VIAL) IV Oxycodone/ 2 UDTAB Q4HPRN PRN 05/17 1000 AC Acetaminophen PO (percoCET-5/325 TAB) Oxycodone/ 1 UDTAB Q4HPRN PRN 05/17 1000 AC Acetaminophen PO (percoCET-5/325 TAB) Review of Systems Constitutional Denies: Fever, Fatigue, Chills. EENT Denies: Vision Change, Vision Problems. Cardiovascular Denies: Chest Pain, Pain on Exertion. Pulmonary Denies: Pleuritic Chest Pain, Dyspnea. Gastrointestinal Denies: Abdominal Pain, Nausea, Vomiting. Genitourinary Denies: Dysuria, Hematuria. Skin Reports: Leg Pain. Denies: Extremity Pain, Calf Pain. Endocrine Denies: Cold Intolerance, Heat Intolerance. Neuro Denies: Headache, Syncope, Dizziness. All other systems reviewed andnot significant to current visit Yes Physical Exam Appearance - PE Appears well, Awake, Alert Neck - PE Normal inspection, Supple HEENT - PE Head atraumatic, Eyes normal inspection, PERRLA Respiratory - PE Lungs sound clear, Respirations non-labored Cardiovascular - PE Rate WNL, Rhythm regular Neurological - PE Alert, Oriented x 3 Abdomen - PE Bowel sounds present, Abdomen soft, Non-tender Extremity Comment - PE Right below-knee amputation Skin - PE Color normal, Skin warm, dry Additional Laboratory Tests 05/17 826 Serology SARS-CoV-2 (PCR) (Negative) NEGATIVE Conclusion / Plan Conclusion 1. 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 Phonetic and/or minor grammatical errors may exist. eSign Date and Time Danna López MD Verified/Reviewed by 05/17/21 1303 [facility] OR.OPRPTon 05-17-2021 Operative Report Normal [facility] OR.OPRPT [facility] Patient Name: DENNIS TYLER [address] Date of : [address] [place], [place] [address] Unit Number: [id number] Operative Report Patient Status: REG SDC Attending Doctor: Sobeida Lopez MD Service Date: 05/17/21 1212 Operative Report - ORTHO Procedure Date: 05/17/21 Procedure: Preoperative diagnosis: Right tibia nonunion, patient noncompliance Postoperative diagnosis: Same Procedure: Right below-knee amputation Anesthesia: Gen Surgeon: Sobeida Lopez MD EBL 300ml TT 32min 300mm Hg Procedure in detail: Patient identified preoperatively by name and medical record number. Right lower extremity marked. Patient brought back to the operating room. Anesthesia induced. IV antibiotics given. Sterile prep and drape of the right lower extremity with ChloraPrep. Timeout was called. The horizontal anterior limb of the incision was made 4 fingerbreadths distal to the tibial tubercle. The incision was extended longitudinally along the posterior compartment medially and laterally. The incision was completed posteriorly about 15 cm distal to the anterior limb. Full-thickness flaps were maintained. Dissection was performed through the periosteum and anterior compartment musculature. Anterior vessels were ligated with 0 silk ties, and 2-0 Vicryl stick ties. Peroneal nerve, saphenous nerve, sural nerves transected and allowed to retract within the tissue. The saphenous vein was ligated. The tibia and fibula were exposed. The tibial bone cut was completed with a saw. The fibular bone cut was completed 1.5 cm proximal to the tibial bone cut. The tibial bone surface was beveled and smoothed. The posterior compartment was released, and the amputation completed with an amputation knife. The sciatic nerve was identified, transected and allowed to retract within the tissue. Posterior vessels were ligated with 0 silk ties, and 2-0 Vicryl stick ties. Tourniquet was let down, final hemostasis was excellent, maintained with Bovie electrocautery. Irrigation was performed with saline. Tissues were well perfused. The posterior compartment muscle was fashioned to optimize flap coverage. Myodesis was performed of the posterior compartment to the tibia through anterior drill holes with #2 Ethibond. The fascia was repaired with 0 Vicryl. Subcutaneous tissue closed with 2-0 Vicryl. Skin was closed with jesus without tension. Sterile dressing and stump dressing applied. He remained hemodynamically stable throughout the procedure. No intra-operative complications. Disclaimer This dictation was created using voice recognition software. Phonetic and/or minor grammatical errors may exist. eSign Date and Time Sobeida Lopez MD Verified/Reviewed by 05/17/21 1218 Normal [facility] [id number] 05-17-2021 SARS-CoV-2 (COVID-19) RNA DARRYL+probe Ql (Unsp spec) Negative Invalid Interpretation Code Negative [facility] Comment on above: Order Comment: Aryau s: M Result Comment: RESU LTS CALLED TO AND READ BACK BY JOSE STONE/ANA ROSA AT 0919 05/17/21 BY JAUNA ALVARENGA Negative results do not preclude SARS-CoV-2 infection and should not be used as the sole basis for treatment or other patient management decisions. Negative results must be combined with clinical observation, patient history, and epidemiological information. This test was performed by PCR. Performed By: #### L [phone] #### [facility] [address] [place] [id number] # [phone] SURGon 05-17-2021 SURG Patient: DENNIS TYLER S SPECIMEN: [id number] Collection Date: 05/17/21 Received: 05/17/21 Status: CHERYL Ching Dr.: Sobeida Lopez MD Ph# Othr. Dr.: No Family Physician given Material for Examination: A RIGHT BELOW THE KNEE AMPUTATION PRE-OP DIAGNOSIS: DISPLACED PILON FRACTURE OF RIGHT TIBIA, SUBSEQUENT ENCOUNTER FOR CLOSED FRACTURE WITH NON-UNION POST-OP DIAGNOSIS: SAME SURGICAL PROCEDURE: RIGHT BELOW THE KNEE AMPUTATION DIAGNOSIS A. Right below the knee amputation: Right extremity, amputated below the knee, with a cutaneous scar on its anterior aspect, revealing an underlying metal pavan attached to underlying bone with a loosened mobile ankle joint, consistent with the clinical impression of a closed fracture with nonunion. - Cutaneous scar microscopic sections demonstrate scar tissue with fibrosis, mild chronic inflammation and histiocytic and foreign body type multinucleated giant cell reaction, consistent with previous surgical procedure site. - Bone at distal end of metal pavan microscopically shows reactive changes and hemorrhage, consistent with a fracture. Viable skin and soft tissue margins of resection with no inflammation. Viable bone and bone marrow margin of resection with no osteomyelitis. Blood vessels with patent lumen exhibiting mild intimal fibroplasia with minimal luminal narrowing by about 10%. GROSS DESCRIPTION The specimen is received fresh and labeled with the patient's name, ID and designated below the knee amputation right. The specimen consists of a right below the knee amputation measuring from margin of resection to heel is 36.0 cm and from heel to great toe is 27.9 cm. The skin and soft tissue at the margin of resection grossly appears to be viable. The bone margins of resection are firm and hard. All 5 toes are present. A scar is identified on the anterior aspect of the leg, 17.0 cm in length. This scar is well-healed. No ulcers or lesions are identified on the skin surface. The ankle joint appears extremely loose and mobile. The tissue under the scar appears somewhat edematous. The bones are firm and hard. A metal pavan is identified in the bone under the scar. The bone at the distal end of the pavan is firm and hard. The vessels are unremarkable. Turbine Mechanic sections are submitted in cassettes A1 through A5. SECTION SUMMARY: A1. Skin and soft tissue margin of resection A2. Bone marrow margin of resection for decalcification A3. Skin scar and underlying tissue [facility] NAME: JAYSONDENNIS Romero Pathology and Laboratory Medicine UNIT#: [id number] [address]: [address]: Lois Jensen M.D. [id number] ROOM/BED: [place] [address] [employer], [facility] : 60 AGE/SEX: 60/M ORD.DR. Lopez,Sobeida Romero MD CONTINUED ON NEXT PAGE Patient: JAYSONDENNIS Romero Unit#: [id number] (continued) SPECIMEN: [id number] GROSS DESCRIPTION A4. Bone from near the distal end of the pavan for decalcification A5. Vessels MICROSCOPIC DESCRIPTION Five Beverly stained slides examined. COPIES TO: Sobeida Lopez MD No Family Physician given Signed Verified/Reviewed by LENA FINNEGAN MD 05/20/21 This dictation was created using voice recognition software. Phonetic and/or minor grammatical errors may exist. [facility] NAME: DENNIS TYLER Pathology and Laboratory Medicine UNIT#: [id number] LOC: [facility] Lead Trainer: Lois Jensen M.D. [facility] [id number] ROOM/BED: [place] [address] [employer] : 60 AGE/SEX: 60/M ORD.Sobeida Mcgovern MD END OF REPORT [facility]02-20[id number] DENNIS [facility]YLER ([id number]) 1960 M [facility] Date Time Provider Department 03/02/21 JS GUAJARDO [id number] During your visit today, we recorded the following information about you: Rosa Franco 03/02/2021 10:42 AM Signed RECORDS RELEASED TO [facility] BY [facility] ON 02/18/2021 Rosa Franco Allergies As of Date: 03/02/2021 Noted Allergy Reaction GABAPENTIN 02/17/2016 1 - Mental Status Change 16 - Unknown NSAIDS (NON-STEROIDAL ANTI-INFLAM* 018 14 - Other: See Comments Comments: Cannot have due to Gastric Bypass TETRACYCLINE 02/17/2016 14 - Other: See Comments Comments: Mood Changes (Anger) TETRACYCLINE HCL 11/08/2017 16 - Unknown Date Reviewed: 02/25/2021 Reviewed by: Kirsten Barron MD - Fully Assessed Reason for Visit: Release Of Medical Records [2017] Cmt: RECORDS RELEASED TO [facility] BY [facility] ON 02/18/2021 Prescriptions as of 03/02/2021 - buprenorphine (BUTRANS) 20 mcg/hour ptwk Apply 1 Patch as directed one time a week for 30 days. Do not start before March 11, 2021. - Pregabalin (LYRICA) 200 mg capsule Take 1 capsule by mouth twice daily for 30 days. - celecoxib (CELEBREX) 200 mg capsule Take 1 capsule by mouth twice daily. - venlafaxine ER (EFFEXOR XR) 150 mg 24 hr capsule TAKE ONE CAPSULE BY MOUTH TWO TIMES A DAY - benazepril (LOTENSIN) 20 mg tablet Take 1 tablet by mouth once daily. - Tadalafil (CIALIS) 20 mg tab(s) Take 1 tablet by mouth as needed. 1-2 hours before sexual intercourse. - Benazepril HCl (LOTENSIN) 40 mg tablet Take 1 tablet by mouth once daily. - Pregabalin (LYRICA) 200 mg capsule Take 1 capsule by mouth twice daily for 30 days. - omeprazole (PRILOSEC) 40 mg capsule Take 1 capsule by mouth twice daily. Problem List As Of Date 03/02/2021 Noted Resolved Screening for depression [Z13.31] 02/17/2016 01/10/2017 Hereditary and idiopathic peripheral neuropathy*02/17/20 16 Chronic pain of right knee [M25.561, G89.29] 02/17/2016 Plantar fasciitis of left foot [M72.2] 02/17/2016 Long-term current use of opiate analgesic [Z79.*02/17/2016 Closed nondisplaced fracture of fifth metatarsa* 6 Acne rosacea [L71.9] Obesity [E66.9] 01/11/2017 Anxiety [F41.9] 01/10/2017 Depression [F32.A] 01/10/2017 Vitamin D deficiency [E55.9] Hypogonadism male [E29.1] Non-insulin dependent type 2 diabetes mellitus * 11/12/2018 Diabetic neuropathy (HCC) [E11.40] Unspecified tear of unspecified meniscus, curre* Chronic left hip pain [M25.552, G89.29] 03/16/2016 Hip impingement syndrome [M25.859] 06/28/2016 Prediabetes [R73.03] 06/23/2017 Hypertension [I10] 11/13/2017 Obesity, Class III, BMI >= 40 (morbid obesity) *01/10/2017 08/31/2017 Obesity, Class II, BMI 35-39.9 [E66.9] 08/31/2017 03/16/2018 Allergy status to other antibiotic agents statu*08/25/2016 Allergy status to other drugs, medicaments and *07/14/2017 Anxiety disorder [F41.9] 07/14/2017 11/12/2018 Asymptomatic varicose veins of lower extremity *07/14/2017 Status post bariatric surgery [Z98.84] 09/21/2017 Body mass index (BMI) of 38.0-38.9 in adult [Z6*09/21/2017 03/16/2018 Body mass index (BMI) of 40.0-44.9 in adult (HC*08/02/2017 03/16/2018 Body mass index (BMI) of 45.0-49.9 in adult (HC*08/25/2016 03/16/2018 Encounter for other preprocedural examination [*01/06/2017 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] 08/25/2016 Essential (primary) hypertension [I10] 10/31/2016 11/12/2018 Fatty (change of) liver, not elsewhere classifi*04/28/2017 GERD without esophagitis [K21.9] 07/14/2017 Hereditary and idiopathic neuropathy, unspecifi* 6 Hyperlipidemia [E78.5] 08/02/2017 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 [Z7*06/20/2017 12/15/2017 [facility] current use of opiate analgesic [Z79.*08/25/2016 oysterman current use of oral hypoglycemic drug*09/21/2017 Major depressive disorder, single episode [F32.*09/21/2017 Morbid (severe) obesity due to excess calories *01/10/2017 03/16/2018 Nausea [R11.0] 09/21/2017 03/18/2018 Obesity [E66.9] 09/21/2017 03/16/2018 History of total right knee replacement [Z96.65*12/15/2017 Lumbosacral radiculopathy at S1 [M54.17] 12/15/2017 Lumbar spondylosis [M47.816]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 theFinal Interpretation/Diag nosis certifies that they have reviewed this case. Clinical History:morbid obesitySpecimens Submitted As:A: GE JUNCTION BIOPSY B: ANTRAL BIOPSIES Other Case Numbers [id number] Description:A: Received in formalin, labeled with the patient's name and hospital numberand "GE junction bx", are 2 fragments of hess, soft tissue aggregating to 0.5 x0.2 x 0.1 cm. The specimen is submitted in toto in one cassette.EXLB: Received in formalin, labeled with the patient's name and hospital numberand "antral bx", is a fragment of hess, soft tissue measuring 0.5 x 0.2 x 0.1cm. The specimen is submitted in toto in one cassette.EXLexl/07/12 Normal [facility] Comment on above: Performed By: #### [facility] ####[facility] Surgical Pathology [id number] [place] [address] Vital Signs Date Time Vital Sign Value Performing Clinician Facility 12-10-2024 14:24-0400 Body temperature 98.1 [degF] Carolina Delmis PA Work Phone: [facility] 12-10-2024 14:24-0400 Diastolic blood pressure 76 mm[Hg] Carolina Delmis PA Work Phone: [facility] 12-10-2024 14:24-0400 Heart rate 79 /min Carolina Delmis PA Work Phone: [facility] 12-10-2024 14:24-0400 Respiratory rate 16 /min Carolina Delmis PA Work Phone: [facility] 12-10-2024 14:24-0400 SaO2% (BldA) [Mass fraction] 98 % Carolina Delmis PA Work Phone: [facility] 12-10-2024 14:24-0400 Systolic blood pressure 111 mm[Hg] Carolina Delmis PA Work Phone: [facility] 12-10-2024 07:24-0400 Inhaled oxygen flow rate 2 L/min Carolina Delmis PA Work Phone: [facility] 12-09-2024 18:33-0400 Body height 196.01 cm Carolina Delmis PA Work Phone: [facility] 12-09-2024 18:33-0400 Body mass index (BMI) [Ratio] 30.7 kg/m2 Carolina Delmis PA Work Phone: [facility] 12-09-2024 18:33-0400 Body weight 118 kg Carolina Delmis PA Work Phone: [facility] 08-22-2024 14:25-0400 Body height 195.58 cm Carolina Delmis PA Work Phone: [facility] 08-22-2024 14:25-0400 Body mass index (BMI) [Ratio] 29.6 kg/m2 Carolina Delmis PA Work Phone: [facility] 08-22-2024 14:25-0400 Body weight 113.39 kg Carolina Delmis PA Work Phone: [facility] 06-27-2024 12:55-0400 Body height 195.58 cm Carolina Delmis PA Work Phone: [facility] 06-27-2024 12:55-0400 Body mass index (BMI) [Ratio] 29.9 kg/m2 Carolina Delmis PA Work Phone: [facility] 06-27-2024 12:55-0400 Body weight 114.36 kg Carolina Delmis PA Work Phone: [facility] 11-21-2023 13:03-0400 Body height 195.6 cm Neal Fuentes MD Work Phone: [facility] 11-21-2023 13:03-0400 Body mass index (BMI) [Ratio] 27.27 kg/m2 Neal Fuentes MD Work Phone: [facility] 11-21-2023 13:03-0400 Body weight 104.33 kg Neal Fuentes MD Work Phone: [facility] 11-21-2023 13:03-0400 Diastolic blood pressure 80 mm[Hg] Neal Fuentes MD Work Phone: [facility] 11-21-2023 13:03-0400 Heart rate 71 /min Neal Fuentes MD Work Phone: [facility] 11-21-2023 13:03-0400 Respiratory rate 16 /min Neal Fuentes MD Work Phone: [facility] 11-21-2023 13:03-0400 SaO2% (BldA) [Mass fraction] 95 % Neal Fuentes MD Work Phone: [facility] 11-21-2023 13:03-0400 Systolic blood pressure 136 mm[Hg] Neal Fuentes MD Work Phone: [facility] 04-26-2023 09:31-0500 Body height 195.6 cm Toni Serrano MD Work Phone: [facility] 04-26-2023 09:31-0500 Body mass index (BMI) [Ratio] 30.83 kg/m2 Toni Serrano MD Work Phone: [facility] 04-26-2023 09:31-0500 Body weight 117.94 kg Toni Serrano MD Work Phone: [facility] 12-08-2022 09:35-0400 Body height 195.6 cm Margarita Cabrera DITCHING MACHINE ENGINEER.[employer]AG SKIMMER Work Phone: [facility] 12-08-2022 09:35-0400 Body weight 108.86 kg Margarita Cabrera DITCHING MACHINE ENGINEER.SLAG SKIMMER Work Phone: [facility] 12-08-2022 09:35-0400 Diastolic blood pressure 86 mm[Hg] Margarita Cabrera DITCHING MACHINE ENGINEER.SLAG SKIMMER Work Phone: [facility] 12-08-2022 09:35-0400 Heart rate 64 /min Margarita Cabrera DITCHING MACHINE ENGINEER.SLAG SKIMMER Work Phone: [facility] 12-08-2022 09:35-0400 SaO2% (BldA) [Mass fraction] 99 % Margarita Flynns DITCHING MACHINE ENGINEER.SLAG SKIMMER Work Phone: [facility] 12-08-2022 09:35-0400 Systolic blood pressure 137 mm[Hg] Margarita Deborah DITCHING MACHINE ENGINEER.SLAG SKIMMER Work Phone: [facility] 10-20-2021 15:01-0400 Heart rate 76 /min Angeles Dong DITCHING MACHINE ENGINEER.SLAG SKIMMER Work Phone: [facility] 10-20-2021 15:01-0400 Respiratory rate 16 /min Angeles Dong DITCHING MACHINE ENGINEER.SLAG SKIMMER Work Phone: [facility] 10-20-2021 15:01-0400 SaO2% (BldA) [Mass fraction] 98 % Angeles Dong DITCHING MACHINE ENGINEER.SLAG SKIMMER Work Phone: [facility] 08-31-2021 14:47-0400 Heart rate 76 /min Angeles Turner DITCHING MACHINE ENGINEER.SLAG SKIMMER Work Phone: [facility] 08-31-2021 14:47-0400 Respiratory rate 16 /min Angeles Turner DITCHING MACHINE ENGINEER.SLAG SKIMMER Work Phone: [facility] 08-31-2021 14:47-0400 SaO2% (BldA) [Mass fraction] 98 % Angeles Dong DITCHING MACHINE ENGINEER.SLAG SKIMMER Work Phone: [facility] 06-24-2021 15:48-0400 Heart rate 75 /min Tejinder Korty DO Work Phone: [facility] 06-24-2021 15:48-0400 Respiratory rate 16 /min Tejinder Korty DO Work Phone: [facility] 06-24-2021 15:48-0400 SaO2% (BldA) [Mass fraction] 99 % Tejinder Korty DO Work Phone: [facility] 01-18-2021 16:21-0500 Body temperature 98.24 [degF] DR SOBEIDA LOPEZ MD [facility] 01-18-2021 16:21-0500 Diastolic blood pressure 75 mm[Hg] DR SOBEIDA LOPEZ MD [facility] 01-18-2021 16:21-0500 Heart rate 74 /min DR SOBEIDA LOPEZ MD [facility] 01-18-2021 16:21-0500 Respiratory rate 16 /min DR SOBEIDA LOPEZ MD [facility] 01-18-2021 16:21-0500 Systolic blood pressure 124 mm[Hg] DR SOBEIDA LOPEZ MD [facility] 01-18-2021 10:54-0500 Body temperature 97.7 [degF] DR SOBEIDA LOPEZ MD [facility] 01-18-2021 10:54-0500 Diastolic blood pressure 67 mm[Hg] DR SOBEIDA LOPEZ MD [facility] 01-18-2021 10:54-0500 Heart rate 81 /min DR SOBEIDA LOPEZ MD [facility] 01-18-2021 10:54-0500 Respiratory rate 16 /min DR SOBEIDA LOPEZ MD [facility] 01-18-2021 10:54-0500 Systolic blood pressure 121 mm[Hg] DR SOBEIDA LOPEZ MD [facility] 01-18-2021 07:34-0500 Body temperature 97.88 [degF] DR SOBEIDA LOPEZ MD [facility] 01-18-2021 07:34-0500 Diastolic blood pressure 80 mm[Hg] DR SOBEIDA LOPEZ MD [facility] 01-18-2021 07:34-0500 Heart rate 71 /min DR SOBEIDA LOPEZ MD [facility] 01-18-2021 07:34-0500 Mean blood pressure 97 mm[Hg] DR SOBEIDA LOPEZ MD [facility] 01-18-2021 07:34-0500 Respiratory rate 18 /min DR SOBEIDA LOPEZ MD [facility] 01-18-2021 07:34-0500 Systolic blood pressure 130 mm[Hg] DR SOBEIDA LOPEZ MD [facility] 01-18-2021 03:28-0500 Diastolic Blood Pressure NBP [address] SOBEIDA LOPEZ MD [facility] 01-18-2021 03:28-0500 Systolic Blood Pressure NBP [address] SOBEIDA LOPEZ MD [facility] 01-18-2021 00:25-0500 Reason For Taking VItal Signs DR SOBEIDA LOPEZ MD [facility] 01-17-2021 23:55-0500 Diastolic Blood Pressure NBP [address] SOBEIDA LOPEZ MD [facility] 01-17-2021 23:55-0500 Systolic Blood Pressure NBP [address] SOBEIDA LOPEZ MD [facility] 01-17-2021 13:54-0500 Reason For Taking VItal Signs DR SOBEIDA LOPEZ MD [facility] 01-17-2021 11:00-0500 Body temperature 98.06 [degF] DR SOBEIDA LOPEZ MD [facility] 01-17-2021 11:00-0500 Diastolic Blood Pressure NBP [address] SOBEIDA LOPEZ MD [facility] 01-17-2021 11:00-0500 Heart rate 76 /min DR SOBEIDA LOPEZ MD [facility] 01-17-2021 11:00-0500 Mean blood pressure 95 mm[Hg] DR SOBEIDA LOPEZ MD [facility] 01-17-2021 11:00-0500 Systolic Blood Pressure NBP [address] SOBEIDA LOPEZ MD [facility] 01-17-2021 10:44-0500 Heart rate 88 /min DR SOBEIDA LOPEZ MD [facility] 01-17-2021 10:44-0500 Mean blood pressure 99 mm[Hg] DR SOBEIDA LOPEZ MD [facility] 01-17-2021 10:30-0500 Body temperature 97.16 [degF] DR SOBEIDA LOPEZ MD [facility] 01-17-2021 10:30-0500 Heart rate 71 /min DR SOBEIDA LOPEZ MD [facility] 01-17-2021 10:30-0500 Mean blood pressure 79 mm[Hg] DR SOBEIDA LOPEZ MD [facility] 01-17-2021 09:50-0500 Body temperature 96.8 [degF] DR SOBEIDA LOPEZ MD [facility] Comment on above: Result Comment: skin 01-17-2021 06:25-0500 Reason For Taking VItal Signs DR SOBEIDA LOPEZ MD [facility] 01-16-2021 19:17-0500 Body height 195.[address] SOBEIDA LOPEZ MD [facility] 01-16-2021 19:17-0500 Body weight [address] SOBEIDA LOPEZ MD [facility] 01-16-2021 19:17-0500 Body weight 26.14 kg/m2 DR SOBEIDA LOPEZ MD [facility] 09-03-2019 05:05-0400 Body Temperature 97.9 [degF] [place]-03-[place] 05:05-0400 BP Diastolic 105 mm[Hg] [employer] [place], [place] 09-03-2019 05:05-0400 BP Systolic 174 mm[Hg] [employer] [place], [place] 09-03-2019 05:05-0400 Pulse (Heart Rate) 63 /min [employer] [place], [place] 09-03-2019 05:05-0400 Pulse Oximetry 100 % [facility] [place], [place] 09-03-2019 05:05-0400 Respiratory Rate 20 /min [place] [place] Encounters Encounter Date Encounter Type Care Provider Facility Start: 12-24-2024 ambulatory [facility] Facility:[facility] Start: 12-16-2024 Encounter for other preprocedural examination [facility] Start: 12-10-2024 Non-patient / Non-visit Carolina AMBRIZ -[facility] Start: 12-10-2024 Non-patient / Non-visit Dr. Rebecca Valencia DO -[facility] Work Phone: Start: 12-09-2024 Non-patient / Non-visit Jocelyne romero NP-[facility] Work Phone: Start: 12-09-2024 ambulatory [facility] Facility:[facility] Start: 12-09-2024 End: 12-10-2024 Evaluation and management of inpatient Dr. Amado Rivera MD -[facility] Work Phone: Start: 12-09-2024 Non-patient / Non-visit Dr. Amado peter MD -[facility] Start: 12-09-2024 ambulatory [facility] Facility:[facility] Start: 12-03-2024 End: 12-03-[address] Amado Rivera MD -[facility] Work Phone: Start: 12-03-2024 End: 12-03-2024 ambulatory Carolina AMBRIZ Work Phone: -[facility] Start: 11-26-2024 Non-patient / Non-visit Dr. Vick [place] -[facility] Work Phone: Start: 11-13-2024 Non-patient / Non-visit Dr. Amado peter MD [facility] Work Phone: Start: 11-13-2024 ambulatory [facility] Facility:[facility] Start: 11-05-2024 End: 11-05-[address] JS GUAJARDO MD Facility:A Start: 08-22-2024 End: 08-22-[address] Amado Rivera MD -[facility] Work Phone: Start: 08-22-2024 End: 08-22-2024 ambulatory Carolina AMBRIZ Work Phone: [facility] Work Phone: Start: 08-15-2024 End: 08-15-2024 ambulatory Carolina Delmis PA Work Phone: [facility] Work Phone: Start: 08-15-2024 End: 08-15-2024 Patient encounter procedure Carolinaheather Soteloyaneli AMBRIZ -MRI - [facility] Work Phone: Start: 08-15-2024 End: 08-15-2024 ambulatory Carolina Benites Facility:[facility] Start: 06-27-2024 End: 06-27-2024 Patient encounter procedure Carolina AMBRIZ -[facility] Work Phone: Start: 06-27-2024 End: 06-27-2024 ambulatory Carolina Benites Facility:[facility] Start: 03-19-2024 End: 03-19-2024 [facility] Start: 03-19-2024 End: 03-19-2024 Patient encounter [facility] Start: 03-07-2024 End: 03-07-[address] JS GUAJARDO MD Facility:A Start: 01-24-2024 End: 01-24-2024 ambulatory [facility] Start: 11-21-2023 End: 11-21-2023 Office outpatient new 45 minutes Neal Fuentes MD Work Phone: [facility] Comment on above: Spinal stenosis, lum bar region, with neurogenic claudication (Primary Dx) Start: 11-21-2023 End: 11-21-2023 ambulatory NEAL FUENTES [facility] Start: 11-10-2023 End: 11-10-2023 ambulatory JS [facility] Start: 11-10-2023 End: 11-10-2023 Subsequent hospital visit by physician Js Guajardo MD Work Phone: [facility] [place] Comment on above: [place]'s syndrome, unspecified (HCC); Other specified abnormal findings of blood chemistry; Headache, unspecified; Other amnesia [place]'s syndrome, unspecified (HCC) Start: 10-17-2023 End: 01-16-2024 Transcribe Orders Js Guajardo MD Work Phone: [facility] Central Scheduling Comment on above: [place]'s syndrome, unspecified (HCC) (Primary Dx); Other specified abnormal findings of blood chemistry; Headache, unspecified; Other amnesia Start: 07-04-2023 End: 07-04-2023 Patient encounter procedure Julian Cristobal PhD Work Phone: [facility] ([employer]) Comment on above: Mild cognitive impai rment (Primary Dx); Depressive disorder Start: 06-20-2023 End: 06-21-2023 Patient encounter procedure Psyc Testing [facility] [address] Work Phone: [facility] ([employer]) Comment on above: Memory loss (Primary Dx) Start: 04-26-2023 End: 04-26-2023 Office outpatient new 30 minutes Toni Serrano MD Work Phone: [facility] Comment on above: Chronic pain of left knee Start: 04-26-2023 End: 04-26-2023 ambulatory TONI SERRANO [facility] Start: 12-08-2022 End: 12-08-2022 Patient encounter procedure Margarita Cabrera APRN.SLAG SKIMMER Work Phone: [facility] Comment on above: Spinal stenosis of l umbar region with neurogenic claudication (Primary Dx); Failure of spinal cord stimulator, subsequent encounter Start: 12-08-2022 End: 12-08-2022 Subsequent hospital visit by physician Yanci [place] [employer] [facility] Comment on above: Spinal stenosis of l umbar region with neurogenic claudication [M48.062] Start: 08-03-2022 End: 08-03-2022 Emergency department patient visit TANI SMYTH MD Facility:A Start: 10-20-2021 End: 10-20-2021 Patient encounter procedure Angeles Umana DITCHING MACHINE ENGINEER.SLAG SKIMMER Work Phone: [facility] Comment on above: Idiopathic periphera l neuropathy; Lumbar spondylosis; 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; Chronic left hip pain; Anxiety Start: 10-13-2021 Telephone encounter Angeles logan APRN.SLAG SKIMMER Work Phone: [facility] Comment on above: Insurance Authorizat ion (Prior auth for BUPRENOPHINE 20mcg) Start: 10-04-2021 Telephone encounter Tejinder reyez DO Work Phone: [facility] Comment on above: Opened In Error Start: 09-20-2021 Telephone encounter Angeles logan APRN.SLAG SKIMMER Work Phone: [facility] Comment on above: Medication Request ( refill) Start: 08-31-2021 End: 08-31-2021 Patient encounter procedure Angeles Umana APRN.SLAG SKIMMER Work Phone: [facility] Comment on above: Acute pain of right shoulder (Primary Dx); Lumbar spondylosis; Idiopathic peripheral neuropathy; 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; Chronic left hip pain Start: 08-31-2021 ambulatory Angeles grant DITCHING MACHINE ENGINEER.SLAG SKIMMER Work Phone: [facility] Comment on above: Medications Start: 08-31-2021 E-mail encounter fro m caregiver Angeles Umana APRN.SLAG SKIMMER Work Phone: [facility] Start: 06-24-2021 End: 06-24-2021 Patient encounter procedure Tejinder Arredondo DO Work Phone: [facility] Comment on above: 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 (Primary Dx); Idiopathic peripheral neuropathy; Anxiety; Tendinopathy of left gluteus medius; Lumbar spondylosis Start: 01-16-2021 End: 01-18-2021 Evaluation and management of inpatient DR SOBEIDA LOPEZ MD [facility] Start: 09-03-2019 End: 09-03-2019 Emergency department patient visit Edmundo Burnham Work Phone: [facility] Comment on above: Anxiety (Primary Dx) Start: 11-12-2018 End: 12-05-2019 Ophthalmic examination and evaluation Julian Cristobal PhD Work Phone: [facility] Start: 11-10-2017 Patient encounter status Wendy Arredondo DO Work Phone: [facility] Start: 07-26-2017 Ambulatory REHANA WINKLER Facili ty:[facility] Start: 07-12-2017 Ambulatory REHANA J CHLYSTA Facili ty:[facility] Procedures Date Procedure Procedure Detail Performing Clinician Start: 12-10-2024 Radex spine lumbosac ral 2/3 views Carolina Sotelok PA Work Phone: Start: 12-10-2024 Estimated creatinine clearance Carolina Sotelok PA Work Phone: Start: 12-09-2024 Fluoroscopic guidance C torri Benites PA Work Phone: Start: 12-09-2024 Radex spine lumbosac ral 2/3 views Carolina Sotelok PA Work Phone: Start: 12-09-2024 Lumbar spinal fusion Ca itmanuel Sotelok PA Work Phone: Start: 11-26-2024 Methicillin resistan t Staphylococcus aureus screening test Carolina Sotelok PA Work Phone: Start: 08-15-2024 MRI of lumbar spine Dawood heather Benites PA Work Phone: Start: 06-27-2024 X-ray of lumbosacral spine Carolina Sotelok PA Work Phone: Start: 11-10-2023 Ct head/brain w/cont rast material Js Guajardo MD Work Phone: Start: 11-10-2023 Ct abdomen w/o & w/c ontrast material Js Guajardo MD Work Phone: Start: 04-26-2023 Radiologic exam knee complete 4/more views Toni Serrano MD Work Phone: Start: 07-03-2013 Colonoscopy Tejinder reyez DO Work Phone: Plan of Treatment Date Care Activity Detail Author Start: 07-22-2025 Screening for malignant neoplasm of colon [facility] Start: 12-10-2024 Patient discharge [facility] Start: 12-10-2024 Application of device [facility] Start: 12-10-2024 Measuring intake and output [facility] Start: 12-10-2024 Catheterization of vein [facility] Start: 12-10-2024 Measuring intake and output [facility] Start: 12-10-2024 Oxygen therapy [facility] Start: 12-10-2024 End: 12-10-2024 Incentive spirometry [facility] Start: 12-10-2024 Measuring intake and output [facility] Start: 12-09-2024 Incentive spirometry [facility] Start: 12-09-2024 Measuring intake and output [facility] Start: 12-09-2024 Following clinical pathway protocol [facility] Start: 12-09-2024 [facility] Start: 12-09-2024 Application of device [facility] Start: 12-09-2024 Measuring intake and output [facility] Start: 12-09-2024 End: 12-09-2024 [facility] Start: 12-09-2024 Assessment of risk of venous thromboembolism [facility] Start: 12-09-2024 Consultation [facility] Start: 12-09-2024 Following clinical pathway protocol [facility] Start: 12-09-2024 Introduction of urinary catheter [facility] Start: 12-09-2024 Neurovascular assessment [facility] Start: 12-09-2024 Patient education [facility] Start: 12-09-2024 Provision of activity privileges [facility] Start: 12-09-2024 Referral for physical therapy [facility] Start: 12-09-2024 Referral to occupational therapist [facility] Start: 12-09-2024 Taking patient vital signs [facility] Start: 12-09-2024 Admission procedure [facility] Start: 12-09-2024 [facility] Start: 12-03-2024 PROSTATE CANCER SCREENING DISCUSSION PROSTATE CANCER SCREENING DISCUSSION [facility] Start: 12-03-2024 Prostate specific antigen measurement Prostate Cancer Screening Discussion [facility] Start: 03-06-2024 Medicare Advantage Annual Wellness Visit Medicare Advantage Annual Wellness Visit [facility] Start: 11-05-2023 COVID-19 Vaccine ( season) COVID-19 Vaccine ( season) [facility] Start: 11-05-2023 COVID-19 Vaccine ( season) COVID-19 Vaccine ( season) [facility] Start: 11-05-2023 Influenza vaccination [facility] Start: 03-06-2023 Medicare Advantage Annual Wellness Visit Medicare Advantage Annual Wellness Visit [facility] Start: 11-04-2022 COVID-19 Vaccine ( season) COVID-19 Vaccine () [facility] Start: 11-04-2022 Influenza vaccination Influenza Vaccine (#1) [facility] Start: 07-23-2022 Screening for malignant neoplasm of colon Colorectal Cancer Screening [facility] Start: 05-18-2022 Diabetes: Estimated Glomerular Filtration Rate for Kidney Health Diabetes: Estimated Glomerular Filtration Rate for Kidney Health [facility] Start: 12-02-2021 ANNUAL PCP TEAM CHRONIC DISEASE VISIT ANNUAL PCP TEAM CHRONIC DISEASE VISIT [facility] Start: 11-04-2021 Influenza vaccination INFLUENZA (#1) [facility] Start: 12-03-2020 3 comp foot exam completed DIABETIC FOOT EXAM [facility] Start: 12-03-2020 Diabetic foot examination Diabetic Foot Exam [facility] Start: 12-03-2020 Hemoglobin A1c measurement Diabetes: Hemoglobin A1C [facility] Start: 12-03-2020 Hepatitis B surface antibody level LDL CHOLESTEROL [facility] Start: 2020 Hepatitis B Vaccine (1 of 3 - Risk 3-dose series) Hepatitis B Vaccine (1 of 3 - Risk 3-dose series) [facility] Start: 2020 Hepatitis B Vaccines (1 of 3 - Risk 3-dose series) Hepatitis B Vaccines (1 of 3 - Risk 3-dose series) [facility] Start: 2020 RSV Immunization aged 60 or older (1 - 1-dose 60+ series) RSV Immunization aged 60 or older (1 - 1-dose 60+ series) [facility] Start: 2020 RSV Immunization for Adults (1 - Risk 60-74 years 1-dose series) RSV Immunization for Adults (1 - Risk 60-74 years 1-dose series) [facility] Start: 2020 RSV patients and/or patients aged 60+ years (1 - 1-dose 60+ series) RSV patients and/or patients aged 60+ years (1 - 1-dose 60+ series) [facility] Start: 2020 RSV Vaccine (1 - 1-dose 60+ series) RSV Vaccine (1 - 1-dose 60+ series) [facility] Start: 09-29-2020 COVID-19 VACCINE (2 - Pfizer 3-dose series) COVID-19 VACCINE (2 - Pfizer 3-dose series) [facility] Start: 09-29-2020 Covid-19 Vaccine (2 - Pfizer risk series) Covid-19 Vaccine (2 - Pfizer risk series) [facility] Start: 09-29-2020 COVID-19 VACCINE (2 - Pfizer series) COVID-19 VACCINE (2 - Pfizer series) [facility] Start: 06-30-2020 Hemoglobin A1c measurement HbA1C [facility] Start: 06-30-2020 Hemoglobin A1c/Hemoglobin.total in Blood HBA1C [facility] Start: 03-04-2020 Hemoglobin A1c measurement Diabetes: Hemoglobin A1C [facility] Start: 11-13-2019 BP CONTROLLED (<130/80) BP CONTROLLED (<130/80) [facility] Start: 11-13-2019 Hepatitis B screening URINE ALBUMIN:CREATININE RATIO [facility] Start: 11-05-2019 Influenza vaccination Flu vaccine (Season Ended) [place], [place] Start: 07-03-2018 Colonoscopy COLONOSCOPY [facility] Start: 07-03-2018 COLORECTAL CANCER SCREENING COLORECTAL CANCER SCREENING [facility] Start: 07-03-2018 Screening for malignant neoplasm of colon Colonoscopy [facility] Start: 06-18-2016 Glaucoma screening Dilated Retinal Exam [facility] Start: 06-18-2016 Hepatitis C antibody, confirmatory test DILATED RETINAL EXAM [facility] Start: 2010 Screening for malignant neoplasm of colon Colon cancer screen colonoscopy [place], [place] Start: 2010 Shingles Vaccine (1 of 2) Shingles Vaccine (1 of 2) [place], [place] Start: 2010 SHINGRIX VACCINE (1 of 2) SHINGRIX VACCINE (1 of 2) [facility] Start: 2010 Zoster Vaccines (1 of 2) Zoster Vaccines (1 of 2) [facility] Start: 2005 COLOGUARD (FIT-DNA) COLOGUARD (FIT-DNA) [facility] Start: [address] COLONOGRAPHY [facility] Start: 2005 FECAL OCCULT BLOOD FECAL OCCULT BLOOD [facility] Start: 2005 Screening for malignant neoplasm of colon [facility] Start: 2005 SIGMOIDOSCOPY SIGMOIDOSCOPY [facility] Start: 1982 DTaP/Tdap/Td Vaccines (1 - Tdap) DTaP/Tdap/Td Vaccines (1 - Tdap) [facility] Start: 11-29-1979 DTaP/Tdap/Td vaccine (1 - Tdap) DTaP/Tdap/Td vaccine (1 - Tdap) [place] Start: 11-29-1979 DTaP/Tdap/Td Vaccines (1 - Tdap) DTaP/Tdap/Td Vaccines (1 - Tdap) [facility] Start: 11-29-1979 Hepatitis A Vaccines (1 of 2 - Risk 2-dose series) Hepatitis A Vaccines (1 of 2 - Risk 2-dose series) [facility] Start: 11-29-1979 Hepatitis B vaccine (1 of 3 - Risk 3-dose series) Hepatitis B vaccine (1 of 3 - Risk 3-dose series) [place] Start: 11-29-1979 Pneumococcal Vaccine: 50+ Years (1 of 2 - PCV) Pneumococcal Vaccine: 50+ Years (1 of 2 - PCV) [facility] Start: 11-29-1979 Shingrix Vaccine (1 of 2) Shingrix Vaccine (1 of 2) [facility] Start: 11-29-1979 Urine microalbumin profile [facility] Start: 11-29-1979 Urine screening for protein Diabetes: Urine Protein Screening [facility] Start: 1978 Diabetes: Urine Albumin-Creatinine Ratio for Kidney Health Diabetes: Urine Albumin-Creatinine Ratio for Kidney Health [facility] Start: 1978 Diabetic microalbuminuria test Diabetic microalbuminuria test [place] Start: 1978 Hepatitis C screening Hepatitis C Screening [facility] Start: 1976 ONE PNEUMOVAX PRIOR TO AGE 65 ONE PNEUMOVAX PRIOR TO AGE 65 [facility] Start: 11-29-1975 [facility] Start: 1972 Depression Monitoring Depression Monitoring [facility] Start: 1972 Depression Screening Depression Screening [facility] Start: 1970 Diabetic foot examination [facility] Start: 1970 Diabetic retinal exam Diabetic retinal exam [facility] Start: 1970 Glaucoma screening Diabetes: Retinopathy Screening [facility] Start: 1970 HbA1c (Bld) [Mass fraction] A1C test (Diabetic or Prediabetic) [facility] Start: 1970 Lipid panel Lipid screen [facility] Start: 1970 Preventive dental service Diabetes: Dental Exam [facility] Start: 1966 PNEUMOCOCCAL (1 - PCV) PNEUMOCOCCAL (1 - PCV) [facility] Start: 1966 Pneumococcal 0-64 years Vaccine (1 of 1 - PPSV23) Pneumococcal 0-64 years Vaccine (1 of 1 - PPSV23) [facility] Start: 1966 Pneumococcal vaccination [facility] Start: 1966 Pneumococcal Vaccine: Pediatrics (0 to 5 Years) and At-Risk Patients (6 to 64 Years) (1 of 2 - PCV) Pneumococcal Vaccine: Pediatrics (0 to 5 Years) and At-Risk Patients (6 to 64 Years) (1 of 2 - PCV) [facility] Start: 1961 MMR Vaccines (1 of 1 - Standard series) MMR Vaccines (1 of 1 - Standard series) [facility] Start: 1960 [facility]: [facility] Hemoglobin A1c measurement Diabetes: Hemoglobin A1C [facility] Start: 1960 Hepatitis C screening [facility] Start: 1960 HIV screening HIV Screening [facility] Start: 1960 Lipid panel Lipid Panel [facility] Start: 1960 Medicare Advantage Annual Wellness Visit (AWV) Medicare Advantage Annual Wellness Visit (AWV) [facility] Start: 1960 Medicare Annual Wellness Visit Medicare Annual Wellness Visit (AWV) [facility] Start: 1960 Potassium monitoring Potassium monitoring [facility] [place], [place] Start: 1960 Screening for malignant neoplasm of colon [facility] End: 01-07-2024 Mri spinal canal lumbar w/o contrast material MRI LUMBAR SPINE WO IVCON Radiology Routine Spinal stenosis of lumbar region with neurogenic claudication 1 Occurrences starting 12/08/2022 until 01/07/2024 [facility] Work Phone: Comment on above: 1 Occurrences starting 12/08/2022 until 01/07/2024 [facility]: End: 01-04-2024 Radex spine lumbosacral minimum 4 views XR LUMBAR MOTION 4V AP/LAT/ FLEX/EXT Radiology Routine Spinal stenosis of lumbar region with neurogenic claudication Failure of spinal cord stimulator, subsequent encounter 1 Occurrences starting 12/08/2022 until 01/04/2024 [facility] Work Phone: Comment on above: 1 Occurrences starting 12/08/2022 until 01/04/2024 Radex spine lumbosac ral minimum 4 views XR LUMBAR MOTION 4V AP/LAT/ FLEX/EXT Radiology Routine Spinal stenosis of lumbar region with neurogenic claudication Failure of spinal cord stimulator, subsequent encounter 12/08/2022 10:18 AM EDT [facility] Work Phone: End: 01-07-2024 Radex spine thoracic 2 views XR THORACIC LIMITED 2V AP/LAT Radiology Routine Spinal stenosis of lumbar region with neurogenic claudication Failure of spinal cord stimulator, subsequent encounter 1 Occurrences starting 12/08/2022 until 01/07/2024 [facility] Work Phone: Comment on above: 1 Occurrences starting 12/08/2022 until 01/07/2024 Radex spine thoracic 2 views XR THORACIC LIMITED 2V AP/LAT Radiology Routine Spinal stenosis of lumbar region with neurogenic claudication Failure of spinal cord stimulator, subsequent encounter 12/08/2022 10:16 AM EDT [facility] Work Phone: TOX SCREEN ROUT UR TOX SCREEN RO UT UR Lab Routine 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 Ordered: 06/24/2021 [facility] Work Phone: Comment on above: Ordered: 06/24/2021 End: 07-24-2022 XR HIP GENERAL 3V PELV/AP/LAT LEFT XR HIP GENERAL 3V PELV/AP/LAT LEFT Radiology Routine Tendinopathy of left gluteus medius 1 Occurrences starting 06/24/2021 until 07/24/2022 [facility] Work Phone: Comment on above: 1 Occurrences starting 06/24/2021 until 07/24/2022 End: 09-30-2022 XR SHOULDER [id number] AP/TRUE AP RIGHT XR SHOULDER [id number] AP/TRUE AP RIGHT Radiology Routine Acute pain of right shoulder 1 Occurrences starting 08/31/2021 until 09/30/2022 [facility] Work Phone: Comment on above: 1 Occurrences starting 08/31/2021 until 09/30/2022 [facility] Immunizations Immunization Date Immunization Notes Care Provider Fa [facility] 01-05-2022 influenza virus vaccine, unspecified formulation Toni Serrano MD Work Phone: [facility] 01-18-2021 influenza, injectabl e, quadrivalent, preservative free; Translations: [Fluarix PF Quadrivalent ] DR SOBEIDA LOPEZ MD [facility] 01-18-2021 influenza virus vaccine, unspecified formulation Margarita Cabrera APRN.SLAG SKIMMER Work Phone: [facility] 09-08-2020 COVID-19 vaccine, ag e 12+ yr ([employer] - PURPLE TOP) Tejinder Arredondo DO Work Phone: [facility] Payers Date Payer Category Payer Unknown [id number] 2024 Self-pay 2024 Unknown [id number] 2023 Medicare O ANTHEM MEDICARE ADVANTAGE [id number] 2021 Unknown ANTHEM BLUE CROS S AND BLUE SHIELD ANTHEM MEDIBLUE O [id number] 2021-Present [phone] [address] [place] [address] O [id number] 2021 Unknown [id number] 2021 Medicaid MEDICAID [facility] MEDICAID [id number] 2021-Present [phone] [address] [place] [address] Medicaid [id number] 2021 Medicaid [id number] 2020 Medicare [id number] .[id number] 2018 Unknown BCBS BCBS - [place] x xxxxxxxxxxx 2018-Present [id number] [place] [id number] [id number] .[id number] 1960 Unknown [id number] 1960 Unknown [id number] 4 1960 Unknown [id number] [id number] 1960 Unknown [id number] 1960 Unknown [id number] 1959 Medicaid [id number] 1959 Unknown [id number] Unknown [id number] Unknown [id number] Unknown [id number] Unknown [id number] Unknown [id number] Unknown [id number] Unknown [id number] Unknown [id number] Unknown [id number] Unknown [id number] Unknown [id number] Unknown [id number] Unknown [id number] Social History Date Type Detail Facility Start: 09-03-2019 End: 12-03-2024 Tobacco smoking status NHIS Never smoker [facility] Start: 09-03-2019 End: 04-26-2023 Alcohol intake Lifetime non-drinker (finding) [facility] Start: 12-28-2018 History SDOH Alcohol Frequency 1 [facility] Start: 1960 Sex Assigned At Not on file M [place] Exposure to SARS-CoV -2 (event) Unable to assess [place], [place] Start: 1960 Sex Assigned At Male A [facility] Start: 02-17-2016 End: 11-21-2023 Tobacco use and exposure Smokeless tobacco non-user [facility] Start: 06-24-2021 End: 01-11-2023 Alcohol intake Current drinker of alcohol (finding) [facility] Start: 06-24-2021 History SDOH Alcohol Comment rare [facility] Start: 06-14-2021 End: 11-21-2023 Exposure to SARS-CoV-2 (event) Not sure [facility] Start: 12-08-2022 End: 04-26-2023 History of Social function [facility] Start: 12-08-2022 End: 04-26-2023 Tobacco use panel [facility] Adult Depression Screening Assessment 0 [facility] Start: 09-24-2019 Gender identity Identifies as male gender (finding) [facility] Start: 09-24-2019 Sexual orientation Heterosexual (abdiel kahn) [facility] Start: 10-04-2021 Sex Male (finding) Irais mendosa Medical Equipment Procedure Code Equipment Code Equipment Origin al Text Equipment Identifier Dates Fusion, spine, lumbar, 360 degree, starting in supine position transitioning to prone BONE,30CC CRUSH CANC FDA Start: 12-09-2024 Fusion, spine, lumbar, 360 degree, starting in supine position transitioning to prone SET SCREWS FDA Start: 12-09-2024 Fusion, spine, lumbar, 360 degree, starting in supine position transitioning to prone SET SCREWS FDA Start: 12-09-2024 Fusion, spine, lumbar, 360 degree, starting in supine position transitioning to prone SET SCREWS FDA Start: 12-09-2024 Fusion, spine, lumbar, 360 degree, starting in supine position transitioning to prone SET SCREWS FDA Start: 12-09-2024 Fusion, spine, lumbar, 360 degree, starting in supine position transitioning to prone SET SCREWS FDA Start: 12-09-2024 Fusion, spine, lumbar, 360 degree, starting in supine position transitioning to prone SET SCREWS FDA Start: 12-09-2024 Fusion, spine, lumbar, 360 degree, starting in supine position transitioning to prone SUTURE,LIGA CLIP MED [id number] FDA Start: 12-09-2024 Fusion, spine, lumbar, 360 degree, starting in supine position transitioning to prone VIPER PRIME CFX FEN X-TAB POLYAXIAL SCREW FDA Start: 12-09-2024 Fusion, spine, lumbar, 360 degree, starting in supine position transitioning to prone VIPER PRIME CFX FEN X-TAB POLYAXIAL SCREW FDA Start: 12-09-2024 Fusion, spine, lumbar, 360 degree, starting in supine position transitioning to prone HEALTH TECHNICAL WRITER SCREW FDA Start: 12-09-2024 Fusion, spine, lumbar, 360 degree, starting in supine position transitioning to prone BONE,30CC CRUSH CANC FDA Start: 12-09-2024 Fusion, spine, lumbar, 360 degree, starting in supine position transitioning to prone HEALTH TECHNICAL WRITER SCREW FDA Start: 12-09-2024 Fusion, spine, lumbar, 360 degree, starting in supine position transitioning to prone HEALTH TECHNICAL WRITER SCREW FDA Start: 12-09-2024 Fusion, spine, lumbar, 360 degree, starting in supine position transitioning to prone HEALTH TECHNICAL WRITER SCREW FDA Start: 12-09-2024 Fusion, spine, lumbar, 360 degree, starting in supine position transitioning to prone WASHER FDA Start: 12-09-2024 Fusion, spine, lumbar, 360 degree, starting in supine position transitioning to prone BONE,30CC CRUSH CANC FDA Start: 12-09-2024 Fusion, spine, lumbar, 360 degree, starting in supine position transitioning to prone COUGAR CS FDA Start: 12-09-2024 Fusion, spine, lumbar, 360 degree, starting in supine position transitioning to prone COUGAR CS FDA Start: 12-09-2024 Fusion, spine, lumbar, 360 degree, starting in supine position transitioning to prone COUGAR CS FDA Start: 12-09-2024 Fusion, spine, lumbar, 360 degree, starting in supine position transitioning to prone PAVAN FDA Start: 12-09-2024 Fusion, spine, lumbar, 360 degree, starting in supine position transitioning to prone PAVAN FDA Start: 12-09-2024 Fusion, spine, lumbar, 360 degree, starting in supine position transitioning to prone SCREW FDA Start: 12-09-2024 FDA Start: 01-17-2021 FDA Start: 01-17-2021 FDA Start: 01-17-2021 FDA Start: 01-17-2021 FDA Start: 01-17-2021 FDA Start: 01-17-2021 FDA Start: 01-17-2021 FDA Start: 01-17-2021 FDA Start: 01-17-2021 FDA Start: 01-17-2021 FDA Start: 01-17-2021 N300 [place] Kit [id number] Start: 11-22-2019 Senza Ipg Stimulation Kit [id number] Start: 11-22-2019 Comment on above: Description: Nevro S kaushik Blue Lead Kit 70 cm With 5mm Spacing _imp Start: 11-22-2019 Blue Lead Kit 70 cm With 5mm Spacing _imp Start: 11-22-2019 Nevro Senza Spin al cord Stimulator FDA Start: 11-22-2019 Nevro Senza Spin al cord Stimulator FDA Start: 11-22-2019 Nevro Senza Spin al cord Stimulator FDA Start: 11-22-2019 Nevro Senza Spin al cord Stimulator FDA Start: 11-22-2019 Goals Date Patient Goal Desired Activity /State Personal health goal Functional Status Date Assessment Result Facility 12-10-2024 Functional status Chair [facility] Work Phone: Mental Status Date Assessment Result Facility 12-10-2024 Cognitive function Voice/Name [facility] Work Phone: 12-09-2024 Cognitive function Appropriate [facility] Work Phone: Clinical Notes 11-12-2018 to 12-10-2024 Note Date & Type Note Facility 12-10-2024 Discharge summary [facility] 12-10-2024 Progress note Note Date/Time December 10, 2024 3:21pm [facility] Medical Records Department [address] [place] [address] Progress Note - Hospitalist 12/10/2425 MR#: [id number] Acct: [id number] Name: DENNIS TYLER Rep #:[id number] : 1960 64 From: Rebecca Valencia DO PCP: JS GUAJARDO Status:ADM IN Location: [facility] [id number] Subjective Subjective Patient overall states he is feeling well. Awaiting flatus so he can go home. He states sometimes this is a problematic for him due to his history of bariatric issues. Denies any issues from my standpoint I did discuss with him his labs and vital signs look good Objective Data Objective Data Vital Signs: Vital Signs Temp Pulse Resp BP Pulse Ox O2 Del Method O2 Flow Rate 98.9 F 65 16 131/67 H 96 Nasal Cannula 2 12/10/24 06:06 12/10/24 06:06 12/10/24 06:06 12/10/24 06:06 12/10/24 06:06 12/10/24 07:24 12/10/24 07:24 Oxygen Flow Rate (L/min) 2 Oxygen Delivery Method Nasal Cannula Weight: 118 kg Body Mass Index (BMI) 30.7 Intake & Output: Intake and Output for Last 24 Hours 12/08/24 12/09/24 12/10/24 23:59 23:59 23:59 Intake Total 1212 / 1212 110 / 110 Output Total 750 / 750 250 / 250 Balance 462 / 462 -140 / -140 Lab / Micro Data 12/10/24 06:05 12/10/24 06:05 Labs: Laboratory Results - last 24 hr 12/09/24 08:51: POC Glucose 75 12/10/24 06:05: WBC 9.8, RBC 3.80 L, Hgb 10.9 L, Hct 32.2 L, MCV 84.7, MCH 28.7,MCHC 33.9, RDW Std Deviation 47.8 H, RDW Coeff of Phan 15.5 H, Plt Count 194, MPV10.8, Immature Gran % (Auto) 0.500, Neut % (Auto) 81.2 H, Lymph % (Auto) 7.8 L, [place] % (Auto) 10.3 H, Eos % (Auto) 0.0, Baso % (Auto) 0.2, Absolute Neuts (auto)8.0 H, Absolute Lymphs (auto) 0.76 L, Nucleated RBC % 0, Sodium 140, Potassium 4.1, Chloride 104, Carbon Dioxide 25.6, Anion Gap 10, BUN 14, Creatinine 0.95, Estim Creat Clear Calc 111.84, Est GFR (MDRD) Non-Af 90, BUN/Creatinine Ratio 15.2, Glucose 123 H, Calcium 8.7 Micro: Microbiology 11/26/24 12:59 Swab (Method) Nasal Screen MRSA/MSSA - Final Radiography Diagnostic Testing: Radiology Impression Lumbar Spine X-Ray 12/09/24 10:35 IMPRESSION: Fluoroscopic localization and guidance. Correlate with procedural note. Reading Location: [facility] Lumbar Spine X-Ray 12/10/24 06:30 IMPRESSION: Anatomic alignment status post fusion. No complication. Reading Location: [facility] Physical Exam Const alert, oriented x3, no apparent distress and well nourished; Negative for average body habitus Constitutional Narrative: Obese, white male, sitting up in a chair, appears comfortable, nontoxic HEENT head/scalp atraumatic Head and Scalp: normocephalic Resp normal respiratory effort, no retractions, no use of accessory muscles and clearto auscultation bilaterally GI normal to inspection, nondistended, normoactive bowel sounds, soft to palpation and non-tender Extremity Extremity Narrative: Right lower extremity amputee Psych affect normal Psych Narrative: Very pleasant, eye contact is good patient interacts appropriately Assessment & Plan Assessment/Plan (1) Status post lumbar spinal fusion: (2) Spinal stenosis of lumbar region with neurogenic claudication: PLAN: Plan Spinal stenosis of the lumbar spine with neurogenic claudication - Postop L2-L5 posterior spinal fusion - Pain management per primary service - Bowel regimen per primary service - DVT prophylaxis per primary service - PT/OT per primary service Essential hypertension - Continue home benazepril - Continue home amlodipine BPH with obstruction - Continue Flomax Neuropathy - Continue home Lyrica GERD - Continue home PPI Chronic pain - Continue home medications per primary service recommendation Anxiety/depression - Continue home medication Right lower extremity amputee - Stable DVT prophylaxis - Per primary service Disposition: -Patient is stable from a medical standpoint for discharge. Discussed with Dr. Alexander and will sign off. Please reconsult if needed. Charges/Coding Visit Charges Inpatient E&M: 74540 Subs Hosp L2 12/10/24 1521 <Electronically signed by Rebecca Valencia DO> Cosigner Signature (if applicable): CC: ~ Signed [facility] Work Phone: 1(961) 457-488610-07-2025 Progress note [facility] Medical Records Department [address] [place] [address] Progress Note - Hospitalist 12/10/24724 MR#: [id number] Acct: [id number] Name: DENNIS TYLER Rep #:[id number] : 1960 64 From: Rebecca Valencia DO PCP: JS GUAJARDO Status:ADM IN Location: [place] [address] Subjective Subjective Patient overall states he is feeling well. Awaiting flatus so he can go home. He states sometimes this is a problematic for him due to his history of bariatric issues. Denies any issues from my standpoint I did discuss with him his labs and vital signs look good Objective Data Objective Data Vital Signs: Vital Signs Temp Pulse Resp BP Pulse Ox O2 Del Method O2 Flow Rate 98.9 F 65 16 131/67 H 96 Nasal Cannula 2 12/10/24 06:06 12/10/24 06:06 12/10/24 06:06 12/10/24 06:06 12/10/24 06:06 12/10/24 07:24 12/10/24 07:24 Oxygen Flow Rate (L/min) 2 Oxygen Delivery Method Nasal Cannula Weight: 118 kg Body Mass Index (BMI) 30.7 Intake & Output: Intake and Output for Last 24 Hours 12/08/24 12/09/24 12/10/24 23:59 23:59 23:59 Intake Total 1212 / 1212 110 / 110 Output Total 750 / 750 250 / 250 Balance 462 / 462 -140 / -140 Lab / Micro Data 12/10/24 06:05 12/10/24 06:05 Labs: Laboratory Results - last 24 hr 12/09/24 08:51: POC Glucose 75 12/10/24 06:05: WBC 9.8, RBC 3.80 L, Hgb 10.9 L, Hct 32.2 L, MCV 84.7, MCH 28.7,MCHC 33.9, RDW Std Deviation 47.8 H, RDW Coeff of Phan 15.5 H, Plt Count 194, MPV10.8, Immature Gran % (Auto) 0.500, Neut % (Auto) 81.2 H, Lymph % (Auto) 7.8 L, [place] % (Auto) 10.3 H, Eos % (Auto) 0.0, Baso % (Auto) 0.2, Absolute Neuts (auto)8.0 H, Absolute Lymphs (auto) 0.76 L, Nucleated RBC % 0, Sodium 140, Potassium 4.1, Chloride 104, Carbon Dioxide 25.6, Anion Gap 10, BUN 14, Creatinine 0.95, Estim Creat Clear Calc 111.84, Est GFR (MDRD) Non-Af 90, BUN/Creatinine Ratio 15.2, Glucose 123 H, Calcium 8.7 Micro: Microbiology 11/26/24 12:59 Swab (Method) Nasal Screen MRSA/MSSA - Final Radiography Diagnostic Testing: Radiology Impression Lumbar Spine X-Ray 12/09/24 10:35 IMPRESSION: Fluoroscopic localization and guidance. Correlate with procedural note. Reading Location: [facility] Lumbar Spine X-Ray 12/10/24 06:30 IMPRESSION: Anatomic alignment status post fusion. No complication. Reading Location: [facility] Physical Exam Const alert, oriented x3, no apparent distress and well nourished; Negative for average body habitus Constitutional Narrative: Obese, white male, sitting up in a chair, appears comfortable, nontoxic HEENT head/scalp atraumatic Head and Scalp: normocephalic Resp normal respiratory effort, no retractions, no use of accessory muscles and clearto auscultation bilaterally GI normal to inspection, nondistended, normoactive bowel sounds, soft to palpation and non-tender Extremity Extremity Narrative: Right lower extremity amputee Psych affect normal Psych Narrative: Very pleasant, eye contact is good patient interacts appropriately Assessment & Plan Assessment/Plan (1) Status post lumbar spinal fusion: (2) Spinal stenosis of lumbar region with neurogenic claudication: PLAN: Plan Spinal stenosis of the lumbar spine with neurogenic claudication - Postop L2-L5 posterior spinal fusion - Pain management per primary service - Bowel regimen per primary service - DVT prophylaxis per primary service - PT/OT per primary service Essential hypertension - Continue home benazepril - Continue home amlodipine BPH with obstruction - Continue Flomax Neuropathy - Continue home Lyrica GERD - Continue home PPI Chronic pain - Continue home medications per primary service recommendation Anxiety/depression - Continue home medication Right lower extremity amputee - Stable DVT prophylaxis - Per primary service Disposition: -Patient is stable from a medical standpoint for discharge. Discussed with Dr. Alexander and will sign off. Please reconsult if needed. Charges/Coding Visit Charges Inpatient E&M: 81111 Subs Hosp L2 12/10/24 1522 Cosigner Signature (if applicable): CC: ~ Signed [facility]10-07-2025 Consult note Author Jocelyne Chavez [facility] Note Date/Time December 10, 2024 1: 18pm [facility] Medical Records Department [address] [facility] [place] [address] Consultation - Hospitalist 12/09/24 1850 MR#: [id number] Acct: [id number] Name: DENNIS TYLER Rep #:[id number] : 1960 64 From: Jocelyne Reynaga PCP: JS GUAJARDO Status:ADM IN Location: [place] [address] Assessment & Plan Assessment/Plan (1) Spinal stenosis of lumbar region with neurogenic claudication: PLAN: L2-5 posterior spinal instrumented fusion on this date. PLAN: Plan #HTN - on amlodipine 5mg and benazepril 40mg daily and controlled #anxiety/depression - on cariprazine 1.5mg and dextromethorphan-bupropion 45- 105mg daily #GERD - on omeprazole 40mg BID at home and controlled, placed on pantoprazole 40mg twice daily #dysuria - on tamsulosin 0.4mg daily #chronic pain - on pregabalin 300mg twice daily; acute pain managed by primary with scheduled and PRN regimen of analgesia and muscle relaxer #neuropathy - on venlafaxine 75mg twice daily #THOMPSON - uses CPAP, suggested for him to have someone bring in home machine #VTE prophylaxis - per primary HPI Consult Data Date of Consult: 12/09/24 HPI Narrative HPI Narrative: DENNIS TYLER, is a 64 M who presents with 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, stenosis with neurogenic claudication, and had a posterior spinal instrumented fusion today. PMHx of HTN - on amlodipine and benazepril daily, anxiety/depression - oncariprazine and dextromethorphan-bupropion daily, GERD - on omeprazole at home/pantoprazole here twice daily, dysuria - on tamsulosin daily, chronic pain - on pregabalin twice daily, neuropathy - on venlafaxine twice daily, THOMPSON - usesCPAP. PSHx of Oscar-en-Y (6yrs ago and has lost 250LBs, done at [facility] w/), right TKR, implanted spinal nerve stimulator, right BKA d/t trauma. He reports never having been a smoker and drinks alcohol on holidays only. [facility] Medical History Wears glasses Depression Anxiety Arthritis Back pain Injury of back Gastric reflux CPAP (continuous positive airway pressure) dependence Sleep apnea Hypertension Foraminal stenosis of lumbar region Ulcer at site of surgical anastomosis following bypass of stomach Fusion of toes of left foot Amputated right leg High blood pressure Home Medications ?Medication ?Instructions ?Recorded ?Last Taken ?Type cariprazine 1.5 mg capsule 1.5 mg PO QDAY ANTIDEPRESSA NT 06/27/24 12/09/24 05:00 History (Vraylar) celecoxib 200 mg capsule 400 mg PO BID PAIN 06/27/24 Unknown History dextromethorphan IR 45 1 tab PO QAM DEPRESSION 06/0512/09/24 05:00 History mg-bupropion ER 105 mg biphasic tablet (Auvelity) amlodipine 5 mg tablet 5 mg PO DAILY BP 11/25/24 05:00 History benazepril 40 mg tablet 40 mg PO DAILY BP 11/25/24 1 05:00 History buprenorphine 15 mcg/hour weekly 1 patch transdermal Q WEEK PAIN 11/25/24 Unknown History transdermal patch omeprazole 40 mg capsule,delayed 40 mg PO BID GERD 12/09/24 05:00 History release pregabalin 300 mg capsule 300 mg PO BID PAIN 11/25/24 12/09/24 05:00 History tamsulosin 0.4 mg capsule 0.4 mg PO DAILY URINATION 12/09/24 05:00 History trazodone 50 mg tablet 100 mg PO QHS SLEEP 11/25/24 Unknown History venlafaxine 75 mg capsule,extended 75 mg PO BID NEUROP ATHY 11/25/24 12/09/24 05:00 History release 24 hr Allergy/AdvReac Type Severity Reaction Status Date / Time gabapentin Allergy Severe Halusinatio Verified 12/09/24 08:38 n Corticosteroids AdvReac Severe Other Verified 12/09/24 08:38 (Glucocorticoids) (steroids) Family History Mother No problems noted. Father Heart disease heart attack Surgical History Hx of bariatric surgery Hx of surgical procedure Status post right knee replacement Social History Smoking Status: Never smoker alcohol intake: current alcohol intake frequency: holidays/special occasions only substance use type: does not use ROS Constitutional Constitutional: Denies chills or fever(s) Cardiovascular Cardiovascular: Denies chest pain, dyspnea on exertion or paroxysmal nocturnal dyspnea Respiratory/Chest Respiratory/Chest: Denies cough, shortness of breath at rest or shortness of breath with exertion Gastrointestinal Gastrointestinal: Reports other Details: reports complete BMs daily ; Denies abdominal pain Genitourinary Genitourinary: Reports urinary hesitancy Musculoskeletal Musculoskeletal: Reports back pain and other Details: RLE prosthesis Neurologic Neurologic: Reports abnormal gait; Denies numbness or paresthesias Psychiatric Psychiatric: Reports depression Physical Exam Const alert and oriented x3 General Appearance: cooperative Resp normal respiratory effort and clear to auscultation bilaterally Cardio regular rate, regular rhythm, no murmurs, no rub, no gallops, no clicks and no JVD GI normal to inspection, nondistended, normoactive bowel sounds, soft to palpation and non-tender Neuro oriented x3 Psych affect normal Medical Records Data Attestation: I reviewed the patient's medical records Lab / Micro Data Attestation: I reviewed the patient's lab results. 11/26/24 12:59 11/26/24 12:59 Labs: Laboratory Results - last 24 hr 12/09/24 08:51: POC Glucose 75 12/09/248 <Electronically signed by Jocelyne MACK> Cosigner Signature (if applicable): CC: Dr. Amado Rivera MD; JS GUAJARDO~ Signed ADDENDUM by Dr. Jani Persaud DO on 12/10/24 at 1318 Addendum Patient seen and examined independently. Data and vitals reviewed. I agree with the above note by the nurse practitioner. Patient seen and examined on December 09, 2024. Patient complaining of severe pain and requesting pain medications after surgery. Exam: Patient appears comfortable and in no acute distress. He is alert. Heartrate regular rate and rhythm plus S1-S2 without a murmur skips or rubs. Lungs are clear to auscultation bilaterally. Abdomen is soft nontender nondistended normal bowel sounds. Left leg without any lower extremity edema. Assessment and plan 1. Status post lumbar fusion: Date of surgery was December 09. Management per spine surgery. 2. Anxiety depression: Continue with cariprazine, Dexameth Aurophen/bupropion, trazodone and venlafaxine 3. GERD: Continue PPI 4. Chronic pain: Complicates recovery. Recommend restarting buprenorphine patch when okay with spine surgery. 5. Hypertension: Stable. Continue with amlodipine and lisinopril. Thank for the consult. The hospital service will follow along during this patient's hospitalization. Visit Charges Inpatient E&M: 66896 Subs Hosp L2 12/10/24 1318<Electronically signed by Jani Persaud DO> Cosigner Signature (if applicable): cc: Dr. Amado Rivera MD; JS GUAJARDO ~* Signed [facility] Work Phone: 1(354) 887-427510-07-2025 Consult note [facility] Medical Records Department [address] [place] [address] Consultation - Hospitalist 12/09/24 1850 MR#: [id number] Acct: [id number] Name: DENNIS TYLER Rep #:[id number] : 1960 64 From: Jocelyne Reynaga PCP: JS GUAJARDO Status:ADM IN Location: [facility] [id number] Assessment & Plan Assessment/Plan (1) Spinal stenosis of lumbar region with neurogenic claudication: PLAN: L2-5 posterior spinal instrumented fusion on this date. PLAN: Plan #HTN - on amlodipine 5mg and benazepril 40mg daily and controlled #anxiety/depression - on cariprazine 1.5mg and dextromethorphan-bupropion 45- 105mg daily #GERD - on omeprazole 40mg BID at home and controlled, placed on pantoprazole 40mg twice daily #dysuria - on tamsulosin 0.4mg daily #chronic pain - on pregabalin 300mg twice daily; acute pain managed by primary with scheduled and PRN regimen of analgesia and muscle relaxer #neuropathy - on venlafaxine 75mg twice daily #THOMPSON - uses CPAP, suggested for him to have someone bring in home machine #VTE prophylaxis - per primary HPI Consult Data Date of Consult: 12/09/24 HPI Narrative HPI Narrative: DENNIS TYLER, is a 64 M who presents with 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, stenosis with neurogenic claudication, and had a posterior spinal instrumented fusion today. PMHx of HTN - on amlodipine and benazepril daily, anxiety/depression - oncariprazine and dextromethorphan-bupropion daily, GERD - on omeprazole at home/pantoprazole here twice daily, dysuria - on tamsulosin daily, chronic pain - on pregabalin twice daily, neuropathy - on venlafaxine twice daily, THOMPSON - usesCPAP. 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 He reports never having been a smoker and drinks alcohol on holidays only. [facility] Medical History Wears glasses Depression Anxiety Arthritis Back pain Injury of back Gastric reflux CPAP (continuous positive airway pressure) dependence Sleep apnea Hypertension Foraminal stenosis of lumbar region Ulcer at site of surgical anastomosis following bypass of stomach Fusion of toes of left foot Amputated right leg High blood pressure Home Medications ?Medication ?Instructions ?Recorded ?Last Taken ?Type cariprazine 1.5 mg capsule 1.5 mg PO QDAY ANTIDEPRESSA NT 06/27/24 12/09/24 05:00 History (Vraylar) celecoxib 200 mg capsule 400 mg PO BID PAIN 06/27/24 Unknown History dextromethorphan IR 45 1 tab PO QAM DEPRESSION 06/0512/09/24 05:00 History mg-bupropion ER 105 mg biphasic tablet (Auvelity) amlodipine 5 mg tablet 5 mg PO DAILY BP 11/25/24 05:00 History benazepril 40 mg tablet 40 mg PO DAILY BP 11/25/24 1 05:00 History buprenorphine 15 mcg/hour weekly 1 patch transdermal Q WEEK PAIN 11/25/24 Unknown History transdermal patch omeprazole 40 mg capsule,delayed 40 mg PO BID GERD 12/09/24 05:00 History release pregabalin 300 mg capsule 300 mg PO BID PAIN 11/25/24 12/09/24 05:00 History tamsulosin 0.4 mg capsule 0.4 mg PO DAILY URINATION 12/09/24 05:00 History trazodone 50 mg tablet 100 mg PO QHS SLEEP 11/25/24 Unknown History venlafaxine 75 mg capsule,extended 75 mg PO BID NEUROP ATHY 11/25/24 12/09/24 05:00 History release 24 hr Allergy/AdvReac Type Severity Reaction Status Date / Time gabapentin Allergy Severe Halusinatio Verified 12/09/24 08:38 n Corticosteroids AdvReac Severe Other Verified 12/09/24 08:38 (Glucocorticoids) (steroids) Family History Mother No problems noted. Father Heart disease heart attack Surgical History Hx of bariatric surgery Hx of surgical procedure Status post right knee replacement Social History Smoking Status: Never smoker alcohol intake: current alcohol intake frequency: holidays/special occasions only substance use type: does not use ROS Constitutional Constitutional: Denies chills or fever(s) Cardiovascular Cardiovascular: Denies chest pain, dyspnea on exertion or paroxysmal nocturnal dyspnea Respiratory/Chest Respiratory/Chest: Denies cough, shortness of breath at rest or shortness of breath with exertion Gastrointestinal Gastrointestinal: Reports other Details: reports complete BMs daily ; Denies abdominal pain Genitourinary Genitourinary: Reports urinary hesitancy Musculoskeletal Musculoskeletal: Reports back pain and other Details: RLE prosthesis Neurologic Neurologic: Reports abnormal gait; Denies numbness or paresthesias Psychiatric Psychiatric: Reports depression Physical Exam Const alert and oriented x3 General Appearance: cooperative Resp normal respiratory effort and clear to auscultation bilaterally Cardio regular rate, regular rhythm, no murmurs, no rub, no gallops, no clicks and no JVD GI normal to inspection, nondistended, normoactive bowel sounds, soft to palpation and non-tender Neuro oriented x3 Psych affect normal Medical Records Data Attestation: I reviewed the patient's medical records Lab / Micro Data Attestation: I reviewed the patient's lab results. 11/26/24 12:59 11/26/24 12:59 Labs: Laboratory Results - last 24 hr 12/09/24 08:51: POC Glucose 75 12/09/24 2258 Cosigner Signature (if applicable): CC: Dr. Amado Rivera MD; JS CASANDRA~ Signed ADDENDUM by Dr. Jani Persaud DO on 12/10/24 at 1318 Addendum Patient seen and examined independently. Data and vitals reviewed. I agree with the above note by the nurse practitioner. Patient seen and examined on December 09, 2024. Patient complaining of severe pain and requesting pain medications after surgery. Exam: Patient appears comfortable and in no acute distress. He is alert. Heartrate regular rate andrhythm plus S1-S2 without a murmur skips or rubs. Lungs are clear to auscultation bilaterally. Abdomen is soft nontender nondistended normal bowel sounds. Left leg without any lower extremity edema. Assessment and plan 1. Status post lumbar fusion: Date of surgery was December 09. Management per spine surgery. 2. Anxiety depression: Continue with cariprazine, Dexameth Aurophen/bupropion, trazodone and venlafaxine 3. GERD: Continue PPI 4. Chronic pain: Complicates recovery. Recommend restarting buprenorphine patch when okay with spine surgery. 5. Hypertension: Stable. Continue with amlodipine and lisinopril. Thank for the consult. The hospital service will follow along during this patient's hospitalization. Visit Charges Inpatient E&M: 24182 Subs Hosp L2 12/10/24 1318 Cosigner Signature (if applicable): cc: Dr. Amado Rivera MD; JS GUAJARDO ~* Signed [facility]10-07-2025 Progress note Author Carolina Benites [facility] Note Date/Time December 10, 2024 9: 15am [facility] Medical Records Department [address] [place] [address] Progress Note - Orthopedic 12/10/2405 MR#: [id number] Acct: [id number] Name: DENNIS TYLER Rep #:[id number] : 1960 64 From: Carolina AMBRIZ PCP: JS GUAJARDO Status:ADM IN Location: [place] [address]-1 Subjective Subjective Postop day 1 L2-5 fusion. Patient is doing relatively well postoperatively withhis pain well-controlled. Patient says that he has just a generalized lower back pain. He also reports a left-sided groin pain. The patient has a right below-knee amputation. Says that after surgery he has not been able to put on the prosthetic due to swelling in the right leg. Says that he has done some standing at bedside. The patient has not yet passed gas. Patient says it is not unusual for him to go 5 days without a bowel movement. Seen with Dr. Rivera. Objective Data Objective Data Vital Signs: Vital Signs Temp Pulse Resp BP Pulse Ox O2 Del Method O2 Flow Rate 98.1 F 69 16 130/79 H 97 Room Air 2 12/10/24 07:39 12/10/24 07:39 12/10/24 07:39 12/10/24 07:39 12/10/24 07:39 12/10/24 07:39 12/10/24 07:24 Oxygen Flow Rate (L/min) 2 Oxygen Delivery Method Room Air Weight: 260 lb 2.327 oz Body Mass Index (BMI) 30.7 Intake & Output: Intake and Output for Last 24 Hours 12/08/24 12/09/24 12/10/24 23:59 23:59 23:59 Intake Total 1212 / 1212 110 / 110 Output Total 750 / 750 250 / 250 Balance 462 / 462 -140 / -140 Lab / Micro Data 12/10/24 06:05 12/10/24 06:05 Labs: Laboratory Results - last 24 hr 12/09/24 08:51: POC Glucose 75 12/10/24 06:05: WBC 9.8, RBC 3.80 L, Hgb 10.9 L, Hct 32.2 L, MCV 84.7, MCH 28.7,MCHC 33.9, RDW Std Deviation 47.8 H, RDW Coeff of Phan 15.5 H, Plt Count 194, MPV10.8, Immature Gran % (Auto) 0.500, Neut % (Auto) 81.2 H, Lymph % (Auto) 7.8 L, [place] % (Auto) 10.3 H, Eos % (Auto) 0.0, Baso % (Auto) 0.2, Absolute Neuts (auto)8.0 H, Absolute Lymphs (auto) 0.76 L, Nucleated RBC % 0, Sodium 140, Potassium 4.1, Chloride 104, Carbon Dioxide 25.6, Anion Gap 10, BUN 14, Creatinine 0.95, Estim Creat Clear Calc 111.84, Est GFR (MDRD) Non-Af 90, BUN/Creatinine Ratio 15.2, Glucose 123 H, Calcium 8.7 Micro: Microbiology 11/26/24 12:59 Swab (Method) Nasal Screen MRSA/MSSA - Final Radiography Diagnostic Testing: Radiology Impression Lumbar Spine X-Ray 12/09/24 10:35 IMPRESSION: Fluoroscopic localization and guidance. Correlate with procedural note. Reading Location: [facility] Lumbar Spine X-Ray 12/10/24 06:30 IMPRESSION: Anatomic alignment status post fusion. No complication. Reading Location: [facility] Physical Exam Narrative Neurological examination of the lower extremity shows left leg 5X5 power. Limited strength testing able to be done on the right leg due to below-knee amputation. Physical examination of the back and belly shows Tegaderm and gauzeCDI. Const alert, oriented x3 and no apparent distress Assessment & Plan Assessment/Plan (1) Status post lumbar spinal fusion: PLAN: Plan Postop day 1 L2-5 fusion. Patient's pain well-controlled. Obtained reviewed x-rays today which show hardware and bone graft in good position. The patient has not yet passed gas. Dulcolax x 1 ordered. Encouraged the patient to attempt to get his prosthetic on so that he can walk with therapy today. Patient says that he takes Celebrex at home which helps with the swelling so he is able to put on the prosthetic. Meloxicam was canceled with Celebrex being ordered for him. Patient has had a gastric bypass surgery in the past and is not able to take oral NSAIDs however the Celebrex he has been taking for a long time. He will continue this when going home. The patient also says that he gets a buprenorphine patch for pain. Plan is to get this again following surgery. Patient will be sent home with pain meds, discussed that he should not be taking the pain meds with the buprenorphine patch. The patient understands. OARRS reviewed. Continue liquid diet until passes gas. Then advance to regular. Reviewed and educated on the use of the incentive spirometer. Reviewed and educated on back precautions of no bending, lifting, twisting more than 5 pounds. If patient passes gas and is cleared for discharge from therapy he can go home today. Otherwise he will stay another night until gas is passed. 12/10/24914 <Electronically signed by Carolina AMBRIZ> Cosigner Signature (if applicable): CC: ~ Signed [facility] Work Phone: 1(937) 798-450510-07-2025 Progress note [facility] Medical Records Department [address] [place] [id number] Progress Note - Orthopedic 12/10/24904 MR#: [id number] Acct: [id number] Name: DENNIS TYLER Rep #:[id number] : 1960 64 From: Carolina AMBRIZ PCP: JS GUAJARDO Status:ADM IN Location: [place] MV379-0 Subjective Subjective Postop day 1 L2-5 fusion. Patient is doing relatively well postoperatively withhis pain well-controlled. Patient says that he has just a generalized lower back pain. He also reports a left-sided groin pain. The patient has a right below-knee amputation. Says that after surgery he has not been able to put on the prosthetic due to swelling in the right leg. Says that he has done some standing at bedside. The patient has not yet passed gas. Patient says it is not unusual for him to go 5 days without a bowel movement. Seen with Dr. Rivera. Objective Data Objective Data Vital Signs: Vital Signs Temp Pulse Resp BP Pulse Ox O2 Del Method O2 Flow Rate 98.1 F 69 16 130/79 H 97 Room Air 2 12/10/24 07:39 12/10/24 07:39 12/10/24 07:39 12/10/24 07:39 12/10/24 07:39 12/10/24 07:39 12/10/24 07:24 Oxygen Flow Rate (L/min) 2 Oxygen Delivery Method Room Air Weight: 260 lb 2.327 oz Body Mass Index (BMI) 30.7 Intake & Output: Intake and Output for Last 24 Hours 12/08/24 12/09/24 12/10/24 23:59 23:59 23:59 Intake Total 1212 / 1212 110 / 110 Output Total 750 / 750 250 / 250 Balance 462 / 462 -140 / -140 Lab / Micro Data 12/10/24 06:05 12/10/24 06:05 Labs: Laboratory Results - last 24 hr 12/09/24 08:51: POC Glucose 75 12/10/24 06:05: WBC 9.8, RBC 3.80 L, Hgb 10.9 L, Hct 32.2 L, MCV 84.7, MCH 28.7,MCHC 33.9, RDW Std Deviation 47.8 H, RDW Coeff of Phan 15.5 H, Plt Count 194, MPV10.8, Immature Gran % (Auto) 0.500, Neut % (Auto) 81.2 H, Lymph % (Auto) 7.8 L, [place] % (Auto) 10.3 H, Eos % (Auto) 0.0, Baso % (Auto) 0.2, Absolute Neuts (auto)8.0 H, Absolute Lymphs (auto) 0.76 L, Nucleated RBC % 0, Sodium 140, Potassium 4.1, Chloride 104, Carbon Dioxide 25.6, Anion Gap 10, BUN 14, Creatinine 0.95, Estim Creat Clear Calc 111.84, Est GFR (MDRD) Non-Af 90, BUN/Creatinine Ratio 15.2, Glucose 123 H, Calcium 8.7 Micro: Microbiology 11/26/24 12:59 Swab (Method) Nasal Screen MRSA/MSSA - Final Radiography Diagnostic Testing: Radiology Impression Lumbar Spine X-Ray 12/09/24 10:35 IMPRESSION: Fluoroscopic localization and guidance. Correlate with procedural note. Reading Location: [facility] Lumbar Spine X-Ray 12/10/24 06:30 IMPRESSION: Anatomic alignment status post fusion. No complication. Reading Location: [facility] Physical Exam Narrative Neurological examination of the lower extremity shows left leg 5X5 power. Limited strength testing able to be done on the right leg due to below-knee amputation. Physical examination of the back and belly shows Tegaderm and gauzeCDI. Const alert, oriented x3 and no apparent distress Assessment & Plan Assessment/Plan (1) Status post lumbar spinal fusion: PLAN: Plan Postop day 1 L2-5 fusion. Patient's pain well-controlled. Obtained reviewed x-rays today which show hardware and bone graft in good position. The patient has not yet passed gas. Dulcolax x 1 ordered. Encouraged the patient to attempt to get his prosthetic on so that he can walk with therapy today. Patient says that he takes Celebrex at home which helps with the swelling so he is able to put on the prosthetic. Meloxicam was canceled with Celebrex being ordered for him. Patient has had a gastric bypass surgery in the past and is not able to take oral NSAIDs however the Celebrex he has been taking for a long time. He will continue this when going home. The patient also says that he gets a buprenorphine patch for pain. Plan is to get this again following surgery. Patient will be sent home with pain meds, discussed that he should not be taking the pain meds with the buprenorphine patch. The patient understands. OARRS reviewed. Continue liquid diet until passes gas. Then advance to regular. Reviewed and educated on the use of the incentive spirometer. Reviewed and educated on back precautions of no bending, lifting, twisting more than 5 pounds. If patient passes gas and is cleared for discharge from therapy he can go home today. Otherwise he will stay another night until gas is passed. 12/10/24914 Cosigner Signature (if applicable): CC: ~ Signed [facility]10-07-2025 Radiology Diagnostic study note [facility] Imaging Services [address] [place] [address] Lumbar Spine 2 or 3 Views MR#: [id number] Acct: [id number] Name: DNENIS TYLER Rep #: [id number] : 1960 M 64 From: Chastity Rodas MD PCP: JS GUAJARDO Status: ADM IN Study:Lumbar Spine 2 or 3 Views Date of Exam: 12/09/24 Exam# [id number] Ordering Dr: Ana Rivera MD ADDENDUM by Dr. Js Rodas MD on 12/10/24 at 0659 The solitary screw on the right anteriorly is at L2/3 (not L3/4). Reading Location: [id number] 12/10/24699 Date cc: Dr. Amado Rivera MD; JS GUAJARDO ~* Signed PROCEDURE: LUMBAR SPINE 2 OR 3 VIEWS 12/09/2024 REASON FOR EXAM: 360 LUMBAR FUSION L2-3 L3-4 L4-5 TECHNIQUE: Procedure Code: RADSPLL Modality: DX Procedure: LUMBAR SPINE 2 OR 3 VIEWS Fluoroscopy time: 80 seconds Total images: 20 COMPARISON: August 15, 2024 FINDINGS: Fluoroscopic spot images were obtained over the lower lumbar spine. It is assumed that the patient has 5 lumbar type vertebral bodies. Initial images show instrumentation at the level of L4/5 followed by placement of a disc spacer. Another place at L2/3 and L3/4. Solitary screw on the right at L3/4. Subsequent placement of pedicle screws and rods at L2, L4 and L5. Alignment is anatomic. RAD/Lumbar Spine 2 or 3 Views IMPRESSION: Fluoroscopic localization and guidance. Correlate with procedural note. Reading Location: [id number] CC: Dr. Amado Rivera MD; JS GUAJARDO ~ Workday Senior Associate: Signed [facility]10-07-2025 Radiology Diagnostic study note [facility] Imaging Services [address] [place] [address] Lumbar Spine 2 or 3 Views MR#: [id number] Acct: [id number] Name: DENNIS TYLER Rep #: [id number] : 1960 M 64 From: Chastity Rdoas MD PCP: JS GUAJARDO Status: ADM IN Study:Lumbar Spine 2 or 3 Views Date of Exam: 12/10/24 Exam# [id number] Ordering Dr: Dawood Benites PROCEDURE: LUMBAR SPINE 2 OR 3 VIEWS 12/10/2024 REASON FOR EXAM: S/P LUMBAR FUSION TECHNIQUE: Procedure Code: RADSPLL Modality: DX Procedure: LUMBAR SPINE 2 OR 3 VIEWS COMPARISON: Earlier the same day, December 09, 2024 FINDINGS: Vertebrae: Patient has undergone posterior fusion at L2, L4 and L5 with pedicle screws and rods. Disc spacers are shown at L2/3, L3/4, L4/5. Moderate disc space narrowing L5/S1 Alignment: Anatomic alignment Other: Thoracic neurostimulator over the lower lumbar spine. RAD/Lumbar Spine 2 or 3 Views IMPRESSION: Anatomic alignment status post fusion. No complication. Reading Location: [id number] CC: PB Sanford; JS GUAJARDO ~ Workday Senior Associate: Signed [facility]10-06-2025 Consult note Author Wilton Moeller [facility] Note Date/Time December 09, 2024 5: 14pm [facility] Medical Records Department [address] [place] [address] Anesthesia Postop Eval II 12/09/24 1711 MR#: [id number] Acct: [id number] Name: DENNIS TYLER Rep #:[id number] : 1960 64 From: Wilton Moeller MD PCP: JS GUAJARDO Status:ADM IN Y Race: C Location: [place] [address] Anesthesia Postop Eval I Sum Postop Eval Completion status Anesthesia document: Postop Eval 1 completed: Yes Anesthesia Postop Eval I Summary Anesthesia Postop Eval I Summary: Anesthesia Postop Eval I: Assessment Summary Airway patent Yes 12/09/24 15:49 CARDIOLOGY [email or web address].[email or web address] Spontaneous unlabored Yes 12/09/24 15:49 CARDIOLOGY [email or web address].[email or web address] respirations Mental status nausea No 12/09/24 15:49 CARDIOLOGY [email or web address].TNES Vomiting No 12/09/24 15:49 CARDIOLOGY [email or web address].TNES Anesthesia Postop Eval I: Fluid Summary Crystalloid volume administer 2,300 12/09/24 15:49 CARDIOLOGY TECHNOLOGIST.TNES (ml) Colloids volume administered ( ml) Blood Product volume administered (ml) Total IV fluid infused 2,300 12/09/24 15:49 CARDIOLOGY TECHNOLOGIST.TNES Anesthesia Postop Eval I: Summary Notes Anesthesia Complication No 12/09/24 15:49 CARDIOLOGY TECHNOLOGIST.TNES Anesthesia Complication Comment: Post-operative progress note Anesthesia: Postop Eval II Evaluation Mental status: Awake and Calm Pain Level: 5 nausea: No Vomiting: No Progress Note Post-operative progress note: Patient continues to complain of pain despite long-acting and short acting opioids. We will contact Dr. Rivera to see if we canturn back on the neurostimulator that patient was using before. Complications Anesthesia Complication: No 12/09/24 6084 <Electronically signed by Wilton anaya MD> Date _ Wilton Moeller MD Cosigner Signature: Date CC: ~ Signed [facility] Work Phone: 1(852) 444-400010-06-2025 Consult note Author Britton Padilla [facility] Note Date/Time December 09, 2024 3: 49pm [facility] Medical Records Department [address] [place] [address] Anesthesia Postop Eval I 12/09/24 1549 MR#: [id number] Acct: [id number] Name: DENNIS TYLER Rep #:[id number] : 1960 64 From: Britton DANIELS PCP: JS GUAJARDO Status:ADM IN Y Race: C Location: [place] [address] Anesthesia: Postop Eval I Current Vital Signs Temperature: 98.4 F Pulse Rate: 71 Blood Pressure: 130/71 Respiratory Rate: 14 Pulse Ox: 96 Assessment Airway patent: Yes Spontaneous unlabored respirations: Yes nausea: No Vomiting: No Anesthesia Complication: No Fluid Hydration Crystalloid volume administer (ml): 2,300 Total IV fluid infused: 2,300 Progress Note Anesthesia document: Postop Eval 1 completed: Yes 12/09/24 1543 <Electronically signed by Britton Padilla CRNA> Date _ Britton Padilla CRNA Cosigner Signature: Date CC: ~ Signed [facility] Work Phone: 1(892) 961-164110-06-2025 Consult note [facility] Medical Records Department [address] [place] [address] Anesthesia Postop Eval II 12/09/24 1711 MR#: [id number] Acct: [id number] Name: DENNIS TYLER Rep #:[id number] : 1960 64 From: Wilton Moeller MD PCP: JS GUAJARDO Status:ADM IN Y Race: C Location: [facility] MS[address] Anesthesia Postop Eval I Sum Postop Eval Completion status Anesthesia document: Postop Eval 1 completed: Yes Anesthesia Postop Eval I Summary Anesthesia Postop Eval I Summary: Anesthesia Postop Eval I: Assessment Summary Airway patent Yes 12/09/24 15:49 CARDIOLOGY [email or web address].[email or web address] Spontaneous unlabored Yes 12/09/24 15:49 CARDIOLOGY TECHNOLOGIST.TNES respirations Mental status nausea No 12/09/24 15:49 CARDIOLOGY TECHNOLOGIST.TNES Vomiting No 12/09/24 15:49 CARDIOLOGY TECHNOLOGIST.TNES Anesthesia Postop Eval I: Fluid Summary Crystalloid volume administer 2,300 12/09/24 15:49 CARDIOLOGY TECHNOLOGIST.TNES (ml) Colloids volume administered ( ml) Blood Product volume administered (ml) Total IV fluid infused 2,300 12/09/24 15:49 CARDIOLOGY TECHNOLOGIST.TNES Anesthesia Postop Eval I: Summary Notes Anesthesia Complication No 12/09/24 15:49 CARDIOLOGY TECHNOLOGIST.TNES Anesthesia Complication Comment: Post-operative progress note Anesthesia: Postop Eval II Evaluation Mental status: Awake and Calm Pain Level: 5 nausea: No Vomiting: No Progress Note Post-operative progress note: Patient continues to complain of pain despite long-acting and short acting opioids. We will contact Dr. Rivera to see if we canturn back on the neurostimulator that patient was using before. Complications Anesthesia Complication: No 12/09/24 1714 jaclyn ROGERS> Date _ Wilton Moeller MD Cosigner Signature: Date CC: ~ Signed [facility]10-06-2025 Procedure note [facility] Medical Records Department [address] [place] [address] Operative Report 12/09/24 1605 MR#: [id number] Acct: [id number] Name: DENNIS TYLER Rep #:[id number] : 1960 64 From: Amado Rivera MD PCP: JS GUAJARDO Status:ADM IN Location: [facility] [id number] 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, stenosis with neurogenic claudication Post-Operative Diagnosis: Same Surgery/Procedure Performed: L2-5 posterior spinal instrumented fusion rock duster: Yes Landscape Photographer: Carolina Benites Tasks completed by first aid instructor: Closing, Removing tissue, Hemostasis: Electrocautery and Retracting Type of Anesthesia: General RN Documented Start/Stop Times: Operation Date: 12/09/24 10:30 Case Time Into Pre-Op 12/09/24 08:23 Out of Pre-Op 12/09/24 10:25 Anesthesia Start 12/09/24 10:26 Into Room 12/09/24 10:26 Procedure Start 12/09/24 11:06 Procedure End 12/09/24 15:38 Anesthesia End 12/09/24 15:44 Out of Room 12/09/24 15:44 Into Recovery 12/09/24 15:46 Procedure Start Time: 11:06 Procedure Stop Time: 15:38 Select all DRAINS/GRAFTS/IMPLANTS that apply: Graft Graft details: Allograft cancellous chips and Implanted device Implanted device details: DePuy Viper prime pedicle screw instrumentation Estimated Blood Loss: 50 cc Specimen collected: No Description of surgery: Preoperative diagnosis: 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 L2-3 posterior spinal fusion 77794 ? L2-5 posterior pedicle screw instrumentation 06941 ? L3-4 posterior fusion 97175/51 ? L4-5 posterior fusion 78811/51 ? Allograft cancellous chips 77389 Attending Surgeon: Dr. Amado Rivera Estimated blood loss: 50 mL (total for entire case) Anesthesia: General Complications: None Description of procedure: After the anterior procedure was complete, the patientwas then turned supine. The patient was then transferred to Christian table in prone position. Back was prepped and draped in usual fashion. C-arm AP view was then taken. C-arm was positioned in a way that L2 was centralized and superior endplate of was parallel to the beam. Spinous process was centered between the pedicles. Midline was marked with skin marker and lateral borders of the pedicles were also marked. Skin marker was also utilized to lesley transversely across the middle of the pedicles at L2. 2 transverse paramedian incisions of 1 inch were placed. The fascia was incised vertically. Finger dissection was utilized to palpate the transverse process and facet joint. Viper Prime screws with towers were inserted and docked onto the transverse processes. This was then slowly moved medially to reach the superior articular process of L2. This was then confirmed on C-arm and then a mallet was utilized to drive the trocar into the pedicle going up to the medial wall of the pedicle on AP view. This was performed both sides. C-arm lateral view confirmed that the tip of the trocar was in the vertebral body, and the screw was advanced into the pedicle and vertebral body. This was repeated similarly at L4 and L5 bilaterally. Screw sizes were 7 x 55 mm at L2, L4 and L5 on both sides. 110 mm precontoured titanium 5.5 mm lordotic pavan on both sides were then passed through the screw extensions and reduced down to the screws with the help of Depuy Viper instrumentation system on both sides. AP and lateral view of the C-arm showed good positioning of the screws and cages. Final tightening with the torque screwdriver was then completed. [place] was utilized to roughen the facet joint at L2-3, L3-4, L4-5 on the right side. Cancellous allograft bone chips mixed with bone marrow aspirate were then placed over this decorticated area. Hemostasis was achieved. Closure was done in layers with 0 Vicryls for the fascia, 2-0 Vicryls for the subcutaneous tissue, and Monocryl for the skin. Dermabond was applied. Dressings were applied covered with Tegaderm. The patient was then turned supine onto a hospital bed. The patient was extubated and taken to PACU in stable condition. The patient tolerated the procedure well and no complications occurred. Depuy Bearden cage & Viper Prime minimally invasive pedicle screw instrumentation system was utilized in this case. No dural tear was identified intraoperatively. I was present for the entirety of the case and performed the surgery. Push Connector Assembler Carolina Benites PA-C. My physician real estate assistant was a vital part of this case. They were important in appropriate retraction during the case, and protection of soft tissues during the procedure.Their intimate knowledge of thecase and my steps aided in safe and expedient completion of the procedure as well as appropriate position of the patient during the surgery. They were also vital in assisting with closure under my direct supervision. Surgical Findings: See operative note Complications Complications: No 12/09/24 1610 Cosigner Signature (if applicable): CC: Dr. 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, stenosis with neurogenic claudication Post-Operative Diagnosis: Same Surgery/Procedure Performed: L2-5 oblique lumbar interbody fusion rock duster: Yes Landscape Photographer: Carolina Benites Tasks completed by first aid instructor: Closing, Removing tissue, Hemostasis: Electrocautery and Retracting Type of Anesthesia: General RN Documented Start/Stop Times: Operation Date: 12/09/24 10:30 Case Time Into Pre-Op 12/09/24 08:23 Out of Pre-Op 12/09/24 10:25 Anesthesia Start 12/09/24 10:26 Into Room 12/09/24 10:26 Procedure Start 12/09/24 11:06 Procedure End 12/09/24 15:38 Anesthesia End 12/09/24 15:44 Out of Room 12/09/24 15:44 Into Recovery 12/09/24 15:46 Procedure Start Time: 11:06 Procedure Stop Time: 15:38 Select all DRAINS/GRAFTS/IMPLANTS that apply: Graft Graft details: Allograft cancellous chips and Implanted device Implanted device details: DePuy cougar lateral lumbar interbodycage?peek Estimated Blood Loss: 50 cc Specimen collected: No Description of surgery: Preoperative diagnosis: 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 L2-3 anterolateral spinal fusion ? L3-4 anterolateral fusion 53643/51 ? L4-5 anterolateral fusion 49894/51 ? L2-3 insertion of cage 46325 ? L3-4 insertion of cage 03745/51 ? L4-5 insertion of cage 04780/51 ? Bone graft aspirate left iliac crest separate incision ? Allograft cancellous chips Attending Surgeon: Dr. Amado Rivera Estimated blood loss: 50 cc Anesthesia: General Complications: None Indications: Patient is a 64-year-old pleasant gentleman who has had a long history of low back pain and lower extremity radiation, difficulty walking distances. Xrays & MRI revealed 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 with stenosis, prior spondylosis with replacement. After undergoing a prolonged period of nonoperative treatment, the patient elected to undergo surgical decompression & fusion. All surgical options were discussed with the patient including anterior and posterior approaches. All risks and benefits associated with the procedure were explained to the patient. The risks include but are not limited to infection, bleeding, injury to nerves and vessels including major vessels like IVC and aorta, persistent paresthesia, persistent pain, dural tear, need for further procedures, adjacent segment degeneration, pseudoarthrosis, hardware failure, retrograde ejaculation, paralytic ileus, etc. Procedure: The patient was identified in the preoperative holding suite using Unique patient identifiers. Skin was marked, consent was reviewed, and all questions were answered. The patient was then brought back to the operative room. A surgical timeout was performed to make sure correct procedure was being done on the correct patient and all operative room staff were on the same page. General endotracheal anesthesia was then given to the patient. Benitez catheter was inserted. The patient was then carefully positioned in right lateral decubitus position with the left side up on a regular OR table. Axillary roll was placed and all bony prominences were well- padded. Hip positioners were placed in the posterior buttocks and anterior sternal area. The surgical area was prepped and draped in usual fashion. Preoperative antibiotic was injected IV as preoperative antibiotic. A final timeout was then again done just before starting the procedure. A 2 inch incision oblique was taken in the left lower quadrant of the abdomen 2 fingerbreadths away from the iliac crest and the lower ribs. Sharp dissection with Bovie was carried out up to the fascia covering the external oblique. The external oblique, internal oblique and transversus abdominis muscles were split along the muscle fibers and retroperitoneal space was entered. Sponge sticks were utilized to move the bowel and peritoneum alt-nm-plu-way and psoas muscle was exposed staying within the retroperitoneal plane. [employer]oft [employer]verg[employer] retractor system was positioned and the retractor blade was applied onto the psoas. The interval between psoas and midline structures was developed and appropriate retractors were placed. Once adequate interval was cleared, a disc space was identified and a marker x-ray was taken. This identified the L4-5 disc level. The prepsoas interval was then traced inferiorly. Annulotomy was done with a long handled knife. Pituitary was used to remove disc material. Curettes were used to prepare the endplates. Disc space spreaders were utilized to distract and increase the disc height. Near complete discectomy was performed. Trials of serially increasing sizes were used. A Jamshidi needle was used to aspirate bone marrow from the left anterior iliac crest through a separate incision and this aspirate was mixed with the allograft bone chips. A Depuy Bearden cage of size of the 18 x 55 x 10 mm with 15degrees lordosis was packed with corticocancellous allograft bone chips mixed with bone marrow aspirate. This was inserted into the L4-5 disc space. The retractors were then repositioned to expose the L3-4 and L2-3 disc and the procedure was repeated with complete discectomy and endplate preparation. Smaller disc distractors were also used to bluntly perform a contralateral annulotomy at all 3 levels. Cage size was 18 x 55 x 10 mm at L3-4 and L2-3.AP and lateral C-arm pictures were taken to confirm good position of the cage. Some bone chips were also packed around the cages. Screw with washer was placed into the lower L2 body with a washer partially covering the cage at L2-3. Hemostasis was confirmed. The retractor blades were removed. Closure was done in layers with a continuous strand of # 1 Vicryl in all muscle layers. 2-0 Vicryl was used for subcutaneous tissue and 4-0 for Monocryl for the skin. Steri-Strips were applied and 4 x 4 gauze and Tegaderm were applied. Push Connector Assembler Carolina Benites PA-C. My physician real estate assistant was a vital part of this case. They were important in appropriate retraction during the case, and protection of soft tissues during the procedure.Their intimate knowledge of thecase and my steps aided in safe and expedient completion of the procedure as well as appropriate position of the patient during the surgery. They were also vital in assisting with closure under my direct supervision. Surgical Findings: See operative note Complications Complications: No 12/09/24 1472 Cosigner Signature (if applicable): CC: Dr. Amado Rivera MD; JS GUAJARDO~ Signed [facility]10-06-2025 Consult note [facility] Medical Records Department [address] [place] [address] Anesthesia Postop Eval I 12/09/24 1549 MR#: [id number] Acct: [id number] Name: DENNIS TYLER Rep #:[id number] : 1960 64 From: Britton DANIELS PCP: JS GUAJARDO Status:ADM IN Y Race: C Location: [place] [address] Anesthesia: Postop Eval I Current Vital Signs Temperature: 98.4 F Pulse Rate: 71 Blood Pressure: 130/71 Respiratory Rate: 14 Pulse Ox: 96 Assessment Airway patent: Yes Spontaneous unlabored respirations: Yes nausea: No Vomiting: No Anesthesia Complication: No Fluid Hydration Crystalloid volume administer (ml): 2,300 Total IV fluid infused: 2,300 Progress Note Anesthesia document: Postop Eval 1 completed: Yes 12/09/241548 CARDIOLOGY TECHNOLOGIST> Date _ Britton Padilla CARDIOLOGY TECHNOLOGIST Cosigner Signature: Date CC: ~ Signed [facility]10-06-2025 Consult note Author Wilton Moeller [facility] Note Date/Time December 09, 2024 10 :02 [facility] Medical Records Department [address] [place] [address] Pre-Anesthesia Evaluation 12/09/24 0954 MR#: [id number] Acct: [id number] Name: JAYSONDENNIS Marquis Rep #:[id number] : 1960 64 From: Wilton Moeller MD PCP: JS GUAJARDO Status:ADM IN Y Race: C Location: [place] [address] ASA Classification* ASA Classification ASA Classification: 2 Assessment & Plan Anesthesia* Anesthesia Assessment Anesthesia Assessment: Discussed sedation and/or anesthesia options, risks, benefits, and alternatives with patient/parents/legal guardian/POA. Questions invited. The patient/parents/legal guardian/POA seems to understand and agrees to proceedwith anesthesia plan. Reviewed the physical assessment, medical history, allergy history and patient home medications list prior to surgery/procedure/anesthetic and documented any changes. Performed airway and anesthesia risk assessments. Anesthesia Type Anesthesia Type: General History Source History Obtained from:: Patient and Chart Anesthesia Focused Assessment* Temperature: 98.3 F Pulse Rate: 62 Blood Pressure: 165/95 Respiratory Rate: 16 Pulse Ox: 100 Oxygen Delivery Method: Room Air Airway Assessment Mouth opens: >3 cm Mallampati Score: III Teeth Condition: Missing (Patient has several missing teeth. Rest are tight.) Neck Range of motion (ROM): Limited ROM (Somewhat Decreased) Labs Anesthesia Preop lab: CBC WBC, (4.4-11.0) 3.8 K/mm3 L 11/26/24, 12:59 RBC, (4.6-6.2) 4.36 M/mm3 L 11/26/24, 12:59 Hgb, (13.0-16.5) 12.5 g/dL L 11/26/24, 12:59 Hct, (40-54) 38.3 % L 11/26/24, 12:59 Plt Count, (150-450) 262 K/mm3 11/26/24, 12:59 CHEMISTRY Potassium, (3.3-5.1) 4.4 mmol/L 11/26/24, 12:59 Sodium, (133-145) 141 mmol/L 11/26/24, 12:59 Magnesium, (1.5-2.2) 2.1 mg/dL 11/26/24, 12:59 BUN, (4-19) 9 mg/dL 11/26/24, 12:59 Creatinine, (0.70-1.20) 1.05 mg/dL 11/26/24, 12:59 Glucose, (70-99) 95 mg/dL 11/26/24, 12:59 POC Glucose, (74-106) 75 mg/dL Today, 08:51 COAG Pre-Assessment Diagnosis/Proposed Procedure Planned Operative Procedure(s): ERAS, 360 Lumbar Fusion L2-3, L3-4 and L4-5 Anesthesia History Anesthesia History - senior counsel commercial: Anesthesia History - senior counsel commercial Hx Hospitalization No 11/25/24 10:52 Any Problems With Anesthesia No 11/25/24 10:52 Cholinesterase deficiency No 11/25/24 10:52 You/Your Family Experience No 11/25/24 10:52 fever (hyperthermia) with Relationship Recent Exposure to Contagious No 12/09/24 09:01 Disease Does patient have nerve Yes: BACK STIMULATOR- 11/25/24 10:52 stimulator INSTRUCTOR TO TURN OFF DOS Patient instructed to have device shut off --Does patient have Pacemaker No 12/09/24 08:45 or ICD? When Was Last Pacemaker Check QUESTION #4 FULL TEXT: You/Your Family Experience fever (hyperthermia) with Anesthesia Last Oral Intake Last Oral intake: Last Oral Intake NPO since 05:00 12/09/24 08:45 Meds taken in AM with sips of Yes 12/09/24 08:45 water? Meds patient instructed to take am of surgery Any additional information?: Yes NPO since: 05:00 (Patient has preop Ensure at 5AM.) Meds taken in AM with sips of water?: Yes PONV PONV - senior counsel commercial: PONV - senior counsel commercial Female No 11/25/24 10:52 HX of Motion Sickness No 11/25/24 10:52 HX of N/V After Surgery No 11/25/24 10:52 Non-Smoker Yes 11/25/24 10:52 Duration of Surgery greater Yes 11/25/24 10:52 than 60 minutes Number of Risk Factors 2 11/25/24 10:52 PONV Score Moderate Risk 11/25/24 10:52 Height & Weight Height & Weight: Anesthesia: Height & Weight Height 6 ft 5 in 12/09/24 08:45 Weight: 118 kg 12/09/24 08:45 Body Mass Index (BMI) 30.8 12/09/24 08:45 Respiratory Assessment Respiratory Assessment - senior counsel commercial: Respiratory Tract Infection Hx - senior counsel commercial Hx Respiratory Tract Infection No 11/25/24 10:52 STOP Sleep Apnea STOP Sleep Apnea - senior counsel commercial: STOP Sleep Apnea - senior counsel commercial Hx Hypertension Yes: CONTROLLED ON MEDS 11/25/24 10:52 Hx Sleep Apnea Yes 11/25/24 10:52 CPAP Yes 11/25/24 10:52 BIPAP No 11/25/24 10:52 Do you snore loudly (louder than talking or can be heard Do you often feel tired/ fatigued/ sleepy during daytime? Has anyone observed you stop breathing during sleep? STOP Results Positive 11/25/24 10:52 QUESTION #5 FULL TEXT : Do you snore loudly (louder than talking or can be heard through closed doors)? 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 Specify any problems Hx of Preganancy in last 3 N/A 11/25/24 10:52 Months Nurse Filling Out Transfusion VCHRISTIN 11/25/24 10:52 & Questions: Date: 11/25/24 11/25/24 10:52 Time: 10:54 11/25/24 10:52 Patient unable to answer at this time (ie. confused, unrespo /Reproduction History /Reproductive History - senior counsel commercial: /Reproductive Hx- senior counsel commercial Hx Now No 11/25/24 10:52 Gestational Age (in weeks): EDC: Hx Hx Para Hx Section SAB No 11/25/24 10:52 Active Medications Active Medications: Current Medications Generic Name Dose Route Start Last Admin Trade Name Freq PRN Reason Stop Dose Admin Lactated Ringer's 1,000 mls @ 15 mls/hr 12/09/24 08:30 12/09/24 09:18 IV 15 mls/hr .Q48H VIKTORIA Administration Insulin Human Lispro 1 - 6 unit 12/09/24 07:30 Insulin Lispro 100 Unit/Ml Insuln.Pen SC 12/09/24 18:00 Q4H PRN PRN BG>/= 180, SEE PROTOCOL Protocol PFSH Medical History Wears glasses Depression Anxiety Arthritis Back pain Injury of back Gastric reflux CPAP (continuous positive airway pressure) dependence Sleep apnea Hypertension Foraminal stenosis of lumbar region Ulcer at site of surgical anastomosis following bypass of stomach Fusion of toes of left foot Amputated right leg High blood pressure Home Medications ?Medication ?Instructions ?Recorded ?Last Taken ?Type cariprazine 1.5 mg capsule 1.5 mg PO QDAY ANTIDEPRESSA NT 06/27/24 12/09/24 05:00 History (Vraylar) celecoxib 200 mg capsule 400 mg PO BID PAIN 06/27/24 Unknown History dextromethorphan IR 45 1 tab PO QAM DEPRESSION 06/0512/09/24 05:00 History mg-bupropion ER 105 mg biphasic tablet (Auvelity) amlodipine 5 mg tablet 5 mg PO DAILY BP 11/25/24 05:00 History benazepril 40 mg tablet 40 mg PO DAILY BP 11/25/24 1 05:00 History buprenorphine 15 mcg/hour weekly 1 patch transdermal Q WEEK PAIN 11/25/24 Unknown History transdermal patch omeprazole 40 mg capsule,delayed 40 mg PO BID GERD 12/09/24 05:00 History release pregabalin 300 mg capsule 300 mg PO BID PAIN 11/25/24 12/09/24 05:00 History tamsulosin 0.4 mg capsule 0.4 mg PO DAILY URINATION 12/09/24 05:00 History trazodone 50 mg tablet 100 mg PO QHS SLEEP 11/25/24 Unknown History venlafaxine 75 mg capsule,extended 75 mg PO BID NEUROP ATHY 11/25/24 12/09/24 05:00 History release 24 hr Allergy/AdvReac Type Severity Reaction Status Date / Time gabapentin Allergy Severe Halusinatio Verified 12/09/24 08:38 n Corticosteroids AdvReac Severe Other Verified 12/09/24 08:38 (Glucocorticoids) (steroids) Family History Mother No problems noted. Father Heart disease heart attack Surgical History Hx of bariatric surgery Hx of surgical procedure Status post right knee replacement Social History Smoking Status: Never smoker alcohol intake: current alcohol intake frequency: holidays/special occasions only substance use type: does not use Review of Systems (Anesthesia) ROS Narrative System reviewed and no additional complaints, except as documented. 12/09/24 1002 <Electronically signed by Wilton anaya MD> Date _ Wilton Moeller MD Cosigner Signature: Date CC: ~ Signed [facility] Work Phone: 1(677) 681-458210-06-2025 History and physical note Author Amado Rivera [facility] Note Date/Time December 09, 2024 9: 34am [facility] Medical Records Department [address] [place] [address] History & Physical Exam 12/09/24 0934 MR#: [id number] Acct: [id number] Name: JAYSONDENNIS Marquis Rep #:[id number] : 1960 64 From: Amado Rivera MD PCP: JS GUAJARDO Status:ADM IN Location: [place] [address] History and Physical Date of Admission: 12/09/24 MR#: [id number] Acct: [id number] Name: DENNIS TYLER Rep #: [id number] : 1960 Provider: Dr. Amado Rivera MD Age/Sex: 64/M Location: [facility] Status: Signed Intake Vital Signs 08/22/2513:25 Height 6 ft 5 in Weight: 250 lb BMI 29.6 Intake Visit Reasons: lumbar spine Chief Complaint: Lumbar spine Bell Neck Hammerer Required: No Accompanied by: Self Is patient in pain?: Yes (low back ) Pain scale (1-10): 4 Allergies gabapentin Allergy (Severe, Verified 12/03/24 11:00) Halusination Corticosteroids (Glucocorticoids) (steroids) Adverse Reaction (Severe, Verified 12/03/24 11:00) Other Medications ?Medication ?Instructions ?Recorded ?Confirmed ?Type cariprazine 1.5 mg capsule 1.5 mg PO QDAY ANTIDEPRESSANT 06/27/24 0 12/03/24 History (Vraylar) celecoxib 200 mg capsule 400 mg PO BID PAIN 06/27/24 12/03/24 His tory dextromethorphan IR 45 1 tab PO QAM DEPRESSION 06/27/24 5 History mg-bupropion ER 105 mg biphasic tablet (Auvelity) amlodipine 5 mg tablet 5 mg PO DAILY BP 11/25/24 12/03/24 Histo ry benazepril 40 mg tablet 40 mg PO DAILY BP 11/25/24 12/03/24 Hist ory buprenorphine 15 mcg/hour weekly 1 patch transdermal QWEEK PAIN 11/25/24 12/03/24 History transdermal patch omeprazole 40 mg capsule,delayed 40 mg PO BID GERD 11/25/24 12/03/24 Hist ory release pregabalin 300 mg capsule 300 mg PO BID PAIN 11/25/24 12/03/24 His tory tamsulosin 0.4 mg capsule 0.4 mg PO DAILY URINATION 11/25/2412/03 History trazodone 50 mg tablet 100 mg PO QHS SLEEP 11/25/24 12/03/24 Hi story venlafaxine 75 mg capsule,extended 75 mg PO BID NEUROPATHY 11/25/24 5 History release 24 hr PFSH Medical History Wears glasses Depression Anxiety Arthritis Back pain Injury of back Gastric reflux CPAP (continuous positive airway pressure) dependence Sleep apnea Hypertension Foraminal stenosis of lumbar region Ulcer at site of surgical anastomosis following bypass of stomach Fusion of toes of left foot Amputated right leg High blood pressure Surgical History Hx of bariatric surgery Hx of surgical procedure Status post right knee replacement Family History Mother No problems noted. Father Heart disease heart attack Social History (Updated 12/03/24 @ 11:01 by Lucy Bower) Smoking Status: Never smoker alcohol intake: current alcohol intake frequency: holidays/special occasions only substance use type: does not use HPI lumbar spine Details: This documentation accurately reflects the service provided and the decisions made by me, Dr. Amado Rivera MD 12/03/24 1054. Part of today?s visit was documented by [ ], acting as scribe. DENNIS TYLER is a 64 year old M here today for pre-op education and instructions for upcoming L2-5 decompression and fusion DOS: 12/09/24. Continuedlow back unchanged. Denies new injuries. Denies back injection in the last 6 weeks. Pain management seen monthly. Denies recent PT. Uses spinal cord stimulator for left foot and right stump regularly. The patient is a 64-year-old male presenting with concerns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 medical history of peripheral neuropathy, HTN, depression, anxiety, obesity s/p bariatric surgery, right BKA, and placement of spinal cord stimulator. He presents to the office today as a new patient and reports a longstanding history of low back pain that has progressively worsened over the last year. Spinal cord stimulator has provided no symptomimprovement and at this time is not currently turned on. Back pain is interfering with activities of daily living such as ambulation. He reports paresthesia in anterior/lateral aspects of bilateral lower extremities. He denies urinary retention, saddle anesthesia, or bowel/bladder incontinence. Previous conservative treatment outlined below. PREVIOUS CONSERVATIVE TREATMENT: -Medication: Celebrex, Lyrica, Tylenol -Physical therapy: Home exercises -Pain Management: [facility]- last seen in 2021 -Injections: Left gluteus medius tendon injection on 10/13/21-80% relief. PREVIOUS SPINE SURGERY: -Spinal Cord Stimulator ( Senza Omnia implantable)- 2019 Surgical Risk Factors: Smoking status: Denies Anticoagulants/antiplatelets: Denies Diabetic: Denies BMI: 28.46 PAIN EVALUATION 12/08/2022 0934 Pain Location: Back-Lower Description: Aching;Stabbing;Throbbing Duration Units: Months Frequency: Continuous Intervention/Comfort measure: Medication PAST MEDICAL HISTORY Diagnosis Date Acne rosacea Anxiety Depression Depression Diabetic neuropathy (HCC) Hypertension Hypogonadism male Non-insulin dependent type 2 diabetes mellitus (HCC) Obesity Spinal stenosis of lumbar region Unspecified tear of unspecified meniscus, current injury, right knee, sequela Vitamin D deficiency PAST SURGICAL HISTORY Procedure Laterality Date ARTHRP KNE CONDYLE&PLATU MEDIAL&LAT COMPARTMENTS Right 09/2017 COLONOSCOPY & POLYPECTOMY 2014 FOOT SURGERY HX Left 2019 GASTRIC BYPASS HX 2017 KNEE ARTHROSCOP MENISCUS REPAIR MED/LAT Right 2018 PAST SURGICAL HISTORY OF 2014 right leg bone repair S $ FOOT ANCHOR/PLATE/SCREW Left 2019 TONSILLECTOMY HX A CHILD TUMOR REMOVAL (SPECIFY LOCATION) HX 2013 Jaw FAMILY HISTORY Problem Relation Age of Onset Lipids Mother other (Carlotta Gehrig's) Mother other (Valve Disease) Mother other (Cholesterol Issues) Mother Coronary Artery Disease Father Lipids Father Diabetes Father ALLERGIES Allergen Reactions Gabapentin Mental Status Change, Unknown Nsaids (Non-Steroid* Other: See Comments Cannot have due to Gastric Bypass Tetracycline Other: See Comments Mood Changes (Anger) Tetracycline Hcl Unknown Current Outpatient Medications Medication Sig Dispense Refill amLODIPine (NORVASC) 5 mg tablet Take 1 tablet by mouth every afternoon. OTEZLA 30 mg tablet Take 1 tablet by mouth every 12 hours. busPIRone (BUSPAR) 7.5 mg tablet Take 1 tablet by mouth every 12 hours. buprenorphine (BUTRANS) 15 mcg/hour patch Apply 1 patch(es), Transdermal, q2wk hydrOXYzine HCl (ATARAX) 25 mg tablet celecoxib (CELEBREX) 200 mg capsule Take 200 mg by mouth two times a day. Take with food calcipotriene (DOVONEX) 0.005 % oint APPLY OINTMENT TOPICALLY TWICE DAILY QUEtiapine (SEROQUEL) 50 mg tablet venlafaxine ER (EFFEXOR XR) 75 mg 24 hr capsule Take 3 capsules by mouth every afternoon. Pregabalin (LYRICA) 300 mg capsule Take 1 capsule by mouth twice daily for 90 days. 60 capsule 2 Tadalafil (CIALIS) 20 mg tab(s) Take 1 tablet by mouth as needed. 1-2 hours before sexual intercourse. 30 tablet 5 Benazepril HCl (LOTENSIN) 40 mg tablet Take 1 tablet by mouth once daily. 90 tablet 1 omeprazole (PRILOSEC) 40 mg capsule Take 1 capsule by mouth twice daily. 180 capsule 3 venlafaxine ER (EFFEXOR XR) 150 mg 24 hr capsule 150 mg. (Patient not taking: Reported on 12/08/2022) benazepril (LOTENSIN) 20 mg tablet Take 1 tablet by mouth once daily. (Patient not taking: Reportedon 12/09/2021) 90 tablet 3 No current facility-administered medications for this visit. REVIEW OF SYSTEMS Review of Systems Constitutional: Positive for activity change. Negative for chills, diaphoresis and fever. HENT: Negative for congestion, ear pain and sinus pressure. Eyes: Negative for discharge and redness. Respiratory: Negative for cough, shortness of breath and wheezing. Cardiovascular: Negative for chest pain, palpitations and leg swelling. Gastrointestinal: Negative for constipation, diarrhea and nausea. Endocrine: Negative for cold intolerance and heat intolerance. Genitourinary: Negative for difficulty urinating, frequency and urgency. Musculoskeletal: Positive for arthralgias, back pain and gait problem. Negative for neck pain. Skin: Negative for rash and wound. Allergic/Immunologic: Negative for environmental allergies and food allergies. Neurological: Positive for numbness. Negative for dizziness and weakness. Hematological: Does not bruise/bleed easily. Psychiatric/Behavioral: Negative for agitation and behavioral problems. The patient is not nervous/anxious. OBJECTIVE: BP 137/86 Pulse 64 Ht 6' 5" (1.96m) Wt 240 lb (108.9kg) SpO2 99% BMI 28.45 kg/(m^2). PHYSICAL EXAM: General appearance: Well nourished, well developed, and no apparent distress. Mental State : Alert, memory function unremarkable. Oriented to person, place and time. Recent and remote memory normal. Pulmonary: Respirations regular and unlabored. Cardiac: Regular rate Skin: Intact, warm, dry. MUSCULOSKELETAL Sensory: Sensation intact to light touch Palpation: SPINOUS PROCESS: No pain. PARASPINALS: Mild diffuse lumbar paraspinal tenderness Motor: Normal muscle tone and bulk. No tremor or uncontrollable movements. No spasticity or tremor. Gait and Station: Ambulates with assistive device. Unable to perform toe/heel ambulation Range of motion: Cervical: Normal range of motion, no tenderness. Lumbar: Normal range of motion, moderate tenderness with flextion MUSCLE TONE and BULK: Symmetrical in the upper & lower extremities. Upper Extremity Strength Exam Right Left Deltoid 5/5 5/5 Biceps 5/5 5/5 Triceps 5/5 5/5 Wrist Extension 5/5 5/5 Interossei 5/5 5/5 Lower Extremity Strength Exam Right Left Psoas 5/5 5/5 Quadriceps 5/5 5/5 DF BKA 5/5 EHL BKA 5/5 PF BKA 5/5 Data Review: No recent imaging MRI lumbar spine completed in 2018: RESULT: Counting reference: Lumbosacral junction. For the purposes of this report, L4-5 is considered the level of the iliac crest and there are 5 lumbar-type vertebrae. Anatomic Variants: None. Alignment: Alignment is anatomic. Bone marrow signal/fracture: No evidence of pathologic marrow infiltration. There are fairly extensive endplate reactive changes at L3-4 posteriorly and at L5-S1 anteriorly. No evidence of prior fracture. Conus: The conus is within normal limits of signal intensity and morphology. Paraspinal soft tissues: Paraspinal soft tissues are within normal limits. Lower thoracic spine: Visualized lower thoracic canal and foramina are patent. T12-L1: There is loss of disc space height and minimal bulge but no significant stenosis. L1-L2: Canal and foramina are patent. L2-L3: Canal and foramina are patent L3-L4: There is loss of disc space height, generalized subligamentous disc protrusion, ligamentum flavum hypertrophy, and facet hypertrophic change which combine to cause a mild to moderate central canal and bilateral lateral recess narrowing, a mild left foraminal narrowing, and a slight to mild right foraminal narrowing. L4-L5: There is loss of disc space height and generalized bulge of the disc eccentric to the right causing a mild central canal and right lateral recess narrowing, slight to mild left lateral recess narrowing, and slight bilateral foraminal narrowing. L5-S1: There is left-sided osteophytic ridging that projects into the left lateral recess and left foramina causing a mild to moderate left lateral recess and left foraminal narrowing. Sacrum and iliac wings: The visualized sacrum and iliac wings are within normal limits. Assessment/Plan: (M48.062) Spinal stenosis of lumbar region with neurogenic claudication (primary encounter diagnosis) -Patient has symptoms of lumbar stenosis. We reviewed the symptoms as well as the natural history. Recommend maximum participation in conservative treatment prior to surgical intervention. Consult tophysical therapy. -MRI of lumbar spine last completed in 2018 demonstrated moderate central canal stenosis at L3/L4. Since this MRI he has treated his symptoms with multiple modalities including oral medication, home exercises/stretches, and spinal cord stimulator with continued persistent symptoms. Recommend he obtain updated lumbar imaging including dynamic radiographic films for evaluation of subluxation with movement and MRI of lumbar spine for evaluation of neural compression. MRI results will provide diagnostic guidance with continued conservative treatment measures such as potential epidural steroid injections versus surgical plan. Of note, patient does have spinal cord stimulator which is provided nosymptom improvement and turned off at this time. Plan: XR LUMBAR MOTION 4V AP/LAT/ FLEX/EXT, XR THORACIC LIMITED 2V AP/LAT, CONSULT TO PHYSICAL THERAPY, MRI LUMBAR SPINE WO IVCON (T85.192D) Failure of spinal cord stimulator, subsequent encounter -Xray of thoracic spine for evaluation of SCS wires. Patient can discuss removal at follow up with Dr. Dickens. Plan: XR LUMBAR MOTION 4V AP/LAT/ FLEX/EXT, XR THORACIC LIMITED 2V AP/LAT Follow up Plan: -PT to aid in symptom management -thoracic and lumbar radiographic films -MRI lumbar spine- SCS MRI compatible -Follow up after with Dr. Dickens- would like to be seen [place]. Margarita Cabrera APRN-JOHNATHON [facility] This note was partially generated using [employer] voice recognition system, and there may be some incorrect words, spellings, and punctuation that were not noted in checking the note before saving. documented in this encounterOhiohealth [facility]08-17-2022 History of Present illness Narrative* Angeles Umana APRN.CNP - 10/20/2021 3:01 PM EDT Images from the original note were not included. [facility] Today's Date: 10/20/2021 Last Visit: 08/31/21 Name: Dennis Tyler : 1960 Purpose: Established Patient Encounter Interval History: Since last encounter, Dennis Tyler; reports that the chronic problem(s) of LEFT leg and foot are Worse. Reports he discontinued the Butrans due to his Out of pocket expense. He also weaned off of the Effexor due to sexual dysfunction/side effects. He also reports she altered his leg prosthetic 1-2 months ago and is now irritating his leg. He typically sees [employer] for his prosthetic adjustments. Reports he was told by [employer] to not return since he altered the prosthetic. He reports he plans to see a different company, but he has not scheduled an appointment. Reports [facility] not have the finances to proceed. Reports the LEFT Gluteus medius tendon injection on 10/13/21 provided him with 80% relief. Pain Description: Timing: constant Character: Burning, Throbbing, Sharp, Shooting, Aching, and Dull Primary Location: Low Back and leg Radiation: None Exacerbating factors: standing and walking Relieving factors: unable to pinpoint positions/factors that are mitigating The patient reports routine sleep disruptions due to working 3rd shift The patient denies difficulty with bowel or bladder control. New Problems reported: See above Recall: Patient of Dr. Arredondo Current Status: INTAKE PAIN ASSESSMENT 10/13/2021 10/20/2021 Are you having pain associated with your visit today? 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 Yes Taking the medications as prescribed? Yes Getting pain medications from another physician? No Obtaining pain medication from another source? No Sharing medications with friends/family? No Quality of life improved as a result of taking these medications? Yes Any side effect with this medication? No Justification for Continued Opioid Care: Adequate analgesia? Yes Aberrant drug seeking behavior? No Adverse reactions? No Medications improve quality of life? Yes Allergies: ALLERGIES Allergen Reactions Gabapentin Mental Status Change, Unknown Nsaids (Non-Steroid* Other: See Comments Cannot have due to Gastric Bypass Tetracycline Other: See Comments Mood Changes (Anger) Tetracycline Hcl Unknown Data Reviewed: Reviewed personally on today's date 10/20/2021 Relevant Imaging: MRI Spine Report MRI LUMBAR SPINE WO IVCON Exam End: 02/12/2018 9:07 AM (Final result) Electrodiagnostic Study (EMG): B/L LE EMG 11/29/17 B/L S1 radic Recent labs: Creatinine Date Value Ref Range Status 05/18/2021 0.69 0.5 - 1.4 MG/DL Final Comment: NOTE NEW NORMAL RANGE DUE TO REAGENT CHANGE Patients receiving either N-Acetylcysteine (NAC) or Metamizole prior to venipuncture, may have falsely depressed results. @lastegfr(gfr)@ No results found for: PCGLUCOSE Pain Procedures: DATE PROCEDURE IMPROVEMENT 10/13/21 LEFT Gluteus Medius Tendon 80% 09/25/19 SCS Compliance: PDMP website checked and validated. All prescriptions have been APPROPRIATELY filled. No suspiciousactivity was identified. 10/20/2021 by Angeles Umana APRN.SLAG SKIMMER Last Drug screen: 08/31/21: Negative for Butrans Risk Assessment: SHANE-7: No flowsheet data found.(0-4) minimal anxiety, (5-9) mild anxiety, (10-14) moderate anxiety, (15-21) severe anxiety PHQ-9: PHQ-9 02/11/2020 12/02/2020 Score 3 0 (0-4) minimal depression, (5-9) mild depression, (10-14) moderate depression, (15-19) moderately severe depression, (20-27) severe depression Current Medications, Past Medical History, Past Surgical History, Family History, Social History and Review of Systems: On today's date, 10/20/2021, noted above, I have confirmed and edited as necessary, the PFSH and ROS obtained by others. Physical Exam: 10/20/21 1501 Pulse: 76 Resp: 16 SpO2: 98% Constitutional: overweight HEENT: Normal Cephalic, Atraumatic, Non-icteric sclera Eyes: Conjunctiva clear. 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 Last OV he had complaints of RIGHT shoulder pain, XR were ordered, but he did not complete yet. Reports 80% relief with LEFT gluteus medius tendon injection. He recently started working a job at a [employer] and is doing more physical activity and notes he has increased pain at the end of the day. Patient reports he did not fill his second prescription for Butrans due to [id number] cost and expense. Reports his insurance will not cover. He did not find Butrans to be effective in managing his pain. He continues with Lyrica and Celebrex. He reports that he typically takes all 3 doses of his Lyrica at 1 time. He denies medication side effects. He also notes he is having increased pain in his right leg due to self altering his prosthesis, [employer] will not see him back since he had altered this. He is planning to establish with a new company however he has not done so due to [id number] expenses. Dennis Tyler would benefit from the following to decrease pain, improve function and/or work participation, and improve quality of life: Medications: Refill: Requested Prescriptions Signed Prescriptions Disp Refills Pregabalin (LYRICA) 200 mg capsule 90 capsule 1 Sig: Take 1 capsule by mouth three times daily for 30 days. celecoxib (CELEBREX) 200 mg capsule 60 capsule 2 Sig: Take 1 capsule by mouth twice daily. nortriptyline (PAMELOR) 10 mg capsule 30 capsule 2 Sig: Take 1 capsule by mouth daily at bedtime. UDS, NAOIC/ORT: Reviewed UDS was negative for Butrans he has had previous positive EtOH. He self weaned off of his medication. I am not going to reinitiate any new opioids today. Patient counseled today to take medications only as directed. He was advised to not take his Lyricain 1 daily dose but to space throughout the day approximately 1 tablet every 8 hours as directed above. Functional Congregation: No changes-continue current regimen Additional Studies: None Referrals: None Additional: We will try him on low-dose Pamelor at night as adjunct therapy to his Lyrica. Patient was going to extensive detail regarding his sexual dysfunction with Effexor. I advised the patient that while I understand his concerns with medication side effects to please limit these details as this was an appropriate for today's visit. Patient is happy and agreeable with this plan. All questions were answered and patient verbalized understanding. Depending on response to the above plan, consider: Follow-up: next available appointment with physician Attribution: In addition to reviewing the information noted above, some elements copied from my most recent clinical note(s), including the physical exam (completed in entirety today), and the impression and plan sections, have been updated where appropriate. All reflect current medical decision making from today's date. Angeles Umana APRN.SLAG SKIMMER [facility] * Madison Rodriguez MA - 10/20/2021 3:01 PM EDT Review of Systems Constitutional: Negative for activity change, chills, fever and unexpected weight change. Gastrointestinal: Negative for bowel retention or incontinence Genitourinary: Negative for difficulty urinating. Negative for bladder retention or incontinence Musculoskeletal: Positive for arthralgias, back pain, gait problem, joint swelling and myalgias. Negative for neck pain and neck stiffness. Neurological: Negative for weakness, numbness and headaches. Psychiatric/Behavioral: Positive for dysphoric mood and sleep disturbance. Negative for suicidal ideas. The patient is nervous/anxious. documented in this encounterOhio[facility]08-10-2022 Miscellaneous Notes* Telephone Encounter - Silver Schaefer - 10/13/2021 7:19 AM EDT Working on prior authorization for medication BURPENORPHINE 20MCG. (PENDING) documented in this encounterOhiohealth [facility]in [facility]07-18-2022 Miscellaneous Notes* Telephone Encounter - Alyson Tam - 09/20/2021 11:07 AM EDT 09/20/21 Patient would like to get a refill on his patches. Alyson Tam documented in this encounterOhiohealth [facility]in [facility]06-28-2022 Instructions* Patient Instructions* Angeles Umana APRN.JOHNATHON - 08/31/2021 3:25 PM EDT Activity as tolerated Use Ice and/or heat as tolerated as needed documented in this encounterOhiohealth [facility]in [facility]06-28-2022 History of Present illness Narrative* Angeles Umana APRN.JOHNATHON - 08/31/2021 3:05 PM EDT Images from the original note were not included. [facility] Today's Date: 08/31/2021 Last Visit: 06/24/[address] Arredondo Name: Dennis Romero Jayson : 1960 Purpose: Established Patient Encounter Interval History: Since last encounter, Dennis Tyler; PMH significant for DM, peripheral neuropathy, HTN, depression, anxiety, obesity s/p bariatric surgery; reports that the chronic problem(s)of back, neck and LEFT hip pain are Worse. States he feels the Butrans helps with his joint pains, but does not help with his RIGHT shoulder pain. He feels using the walker contributes to this. He also has increased LEFT foot pain. States he has increased pain due to his new job, working at a [employer]. Arredondo ordered LEFT hip XR at his last OV as well as Left glute med tendon sheath corticosteroidinjection under ultrasound guidance; patient reports he did not complete due to transportation. Pain Description: ? Timing: intermittent, previously reported his pain as constant ? Character: Sharp and Shooting ? Primary Location: LEFT hip, RIGHT shoulder, LEFT foot ? Radiation: None ? Exacerbating factors: standing, working ? Relieving factors: lying down ? Interferes with: physical activity, walking, lifting and social activities ? The patient denies difficulty with bowel or bladder control, unintentional weight loss and fevers, chills, or night sweats. New Problems reported: See above Recall: Patient of Dr. Arredondo Current Status: INTAKE PAIN ASSESSMENT 06/24/2021 08/31/2021 Are you having pain associated with your visit today? 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 Opioids: Butrans 20 mcg/ hour ? NSAIDS: Celebrex 200 mg BID ? Anti-depressants: ? Anti-convulsants: Lyrica 200 mg BID ? Muscle relaxants: ? Others: Analgesia: adequate Opioid Medications requiring refills today: Butrans 20 mcg/hr patch Date last filled: 08/06/21 Quantity filled: 4 How many left: 0 (did not bring the box) Time most recent dose taken: 08/31/2021 to LEFT UE (new patch placed on 08/26/21) Current Anti-Coagulant Use: No Compliance: Safety Checklist: Are you taking proper precautions to safe guard your medication? Yes Taking the medications as prescribed? Yes Getting pain medications from another physician? No Obtaining pain medication from another source? No Sharing medications with friends/family? No Quality of life improved as a result of taking these medications? Yes Any side effect with this medication? No Justification for Continued Opioid Care: Adequate analgesia? Yes Aberrant drug seeking behavior? No Adverse reactions? No Medications improve quality of life? Yes Allergies: ALLERGIES Allergen Reactions Gabapentin Mental Status Change, Unknown Nsaids (Non-Steroid* Other: See Comments Cannot have due to Gastric Bypass Tetracycline Other: See Comments Mood Changes (Anger) Tetracycline Hcl Unknown Data Reviewed: Reviewed personally on today's date 08/31/2021 Relevant Imaging: MRI Spine Report MRI LUMBAR SPINE WO IVCON Exam End: 02/12/2018 9:07 AM (Final result) Complete Results Electrodiagnostic Study (EMG): B/L LE EMG 11/29/17 B/L S1 radic Recent labs: Creatinine Date Value Ref Range Status 05/18/2021 0.69 0.5 - 1.4 MG/DL Final Comment: NOTE NEW NORMAL RANGE DUE TO REAGENT CHANGE Patients receiving either N-Acetylcysteine (NAC) or Metamizole prior to venipuncture, may have falsely depressed results. @lastegfr(gfr)@ No results found for: PCGLUCOSE Pain Procedures: DATE PROCEDURE IMPROVEMENT 09/12/2016 L hip CSI 70% relief Compliance: PDMP website checked and validated. All prescriptions have been APPROPRIATELY filled. No suspiciousactivity was identified. 08/31/2021 by Angeles Umana APRN.SLAG SKIMMER RX oxycodone in 05/2021, consistent with his surgery Last Drug screen: 06/14/21 appropriate for medications, Inconsistent for ETOH. Risk Assessment: SHANE-7: No flowsheet data found.(0-4) minimal anxiety, (5-9) mild anxiety, (10-14) moderate anxiety, (15-21) severe anxiety PHQ-9: PHQ-9 02/11/2020 12/02/2020 Score 3 0 (0-4) minimal depression, (5-9) mild depression, (10-14) moderate depression, (15-19) moderately severe depression, (20-27) severe depression Current Medications, Past Medical History, Past Surgical History, Family History, Social History and Review of Systems: On today's date, 08/31/2021, noted above, I have confirmed and edited as necessary, the PFSH and ROS obtained by others. Physical Exam: 08/31/21 1447 Pulse: 76 Resp: 16 SpO2: 98% Constitutional: obese HEENT: Normal Cephalic, Atraumatic, Non-icteric sclera Eyes: Conjunctiva clear. No discharge from eyes Cardiovascular: Appears well perfused Lymphatic: No visible regional lymphadenopathy Skin: No visible rashes or ecchymosis Psychiatric: Full affect, Alert, Pleasant Ambualtes with antalgic gait, ambulates unassisted. Full ROM of the RIGHT shoulder, negative empty can test, negative Crisostomo and Neers. 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 He is complaining of right-sided shoulder pain and left foot pain which she contributes to utilizing his walker at the end of the night. He recently started working a job at a [employer] and is doing more physical activity and notes he has increased pain at the end of the day. Patient initially reports that he has no pain relief with his current Butrans patch or Celebrex however he states that he self weaned and stopped his Butrans and noted severe increase in his pain. Marilynn notes that if he stops the Celebrex he also has significant increase in his pain. Denies medication side effects. States he has significant breakthrough pain midday. Dennis Tyler would benefit from the following to decrease pain, improve function and/or work participation, and improve quality of life: Interventional Procedure(s): Recommend he proceed with the left gluteus medius tendon injection as previously recommended by Dr. Arredondo under US guidance The risks, benefits, alternative treatment options and prognosis of the procedure were discussed and all of the patient's questions/concerns were addressed to the patient's satisfaction. The patient expressed understanding and gave verbal consent to proceed. Medications: Refill: Signed Prescriptions Disp Refills celecoxib (CELEBREX) 200 mg capsule 60 capsule 2 Sig: Take 1 capsule by mouth twice daily. MARGE: No Pregabalin (LYRICA) 200 mg capsule 90 capsule 1 Sig: Take 1 capsule by mouth three times daily for 30 days. WILFREDO Class: C-V MARGE: No buprenorphine (BUTRANS) 20 mcg/hour ptwk 4 Patch 1 Sig: Apply 1 Patch as directed one time a week for 28 days. Do not start before October 01, 2021. WILFREDO Class: C-III MARGE: No buprenorphine (BUTRANS) 20 mcg/hour ptwk 4 Patch 0 Sig: Apply 1 Patch as directed one time a week for 28 days. Do not start before September 03, 2021. WILFREDO Class: C-III o UDS, NAOIC/ORT: Reviewed and consistent for medication, Inconsistent for ETOH, patient counseled today. He understands future discrepancy will result in no more opioids. Repeat UDS today. Functional Congregation: No changes-continue current regimen Additional Studies: XR RIGHT shoulder, advised he complete hip XR ordered at last last OV Referrals: None Additional: Patient reports they are happy with current treatment care plan. At this time will continued the patient's opioids today for 60 days. The patient continues to see benefit and improvement in their quality of life with adequate analgesia and ADLS's maintained. No adverse effects, positive EtOH last UDS, we will monitor closely OARRS reviewed and consistent. Risks of long-term medication use was reviewed and Patient advised the above medications may cause impairment of judgement while driving or operating machinery. Patient instructed on safe storage of medications We will re-evaluate opiate regimen in 60 days, office visit, to determine efficacy of treatment to ensure that we are using the lowest dose for maximum benefit. Today we discussed the use of opioids with combined gabapentin and/or sedative like medications; and the risks of adverse events of prolonged and/or combined use. I have sent a RX for Narcan to his pharmacy. Patient is happy and agreeable with this plan. All questions were answered and patient verbalized understanding. Depending on response to the above plan, consider: RIGHT shoulder CSI Follow-up: 2 months for evaluation of response to treatment plan and optimization, for medication evaluation, optimization and refill as appropriate Attribution: In addition to reviewing the information noted above, some elements copied from my most recent clinical note(s), including the physical exam (completed in entirety today), and the impression and plan sections, have been updated where appropriate. All reflect current medical decision making from today's date. Angeles Umana APRN.SLAG SKIMMER [facility] * Madison Rodriguez MA - 08/31/2021 2:45 PM EDT Review of Systems Constitutional: Negative for activity change, chills, fever and unexpected weight change. Gastrointestinal: Negative for bowel retention or incontinence Genitourinary: Negative for difficulty urinating. Negative for bladder retention or incontinence Musculoskeletal: Positive for arthralgias, back pain, gait problem, joint swelling and myalgias. Negative for neck pain and neck stiffness. Neurological: Negative for weakness, numbness and headaches. Psychiatric/Behavioral: Positive for dysphoric mood. Negative for sleep disturbance and suicidal ideas. The patient is nervous/anxious. documented in this [facility] History of Present illness Narrative* Tejinder Arredondo DO - 06/24/2021 4:00 PM EDT [facility] [place] [facility] Today's Date: 06/24/2021 Last Visit: 04/30/21- OV w/ Barron Name: Dennis Tyler : 1960 Purpose: Follow up Chief complaint: Back, neck, and L hip pain Interval History: Since last visit, he had a surgery, R BKA, which went well, and he was able to wean himself off of the percocet after the surgery. Last dose of percocet was 3-4 weeks ago he thinks.He reports his L hip is bothering him and he would like to get an injection there as he had a priorinjection in his hip which was beneficial. He also reports his SCS isn't working as well. Discussedcontacting the rep regarding reprograming this since he just had his R BKA. Initial HPI: (Obtained on 06/24/2021) Dennis Tyler is a 60 year old year- old male with a PMHx of DM, peripheral neuropathy, HTN, depression, anxiety, obesity s/p bariatric surgery, who presents for evaluation and management of the above-mentioned chief complaint. This has been present for the past years-chronic Treatments to date include the following: Medications (See below), Injections (See below), PhysicalTherapy and Home Exercise Program . Pain Description: o Timing: constant o Character: Sharp and Shooting o Primary Location: L hip o Radiation: None o Exacerbating factors: standing o Relieving factors: lying down o Interferes with: physical activity, walking, lifting and social activities o The patient denies difficulty with bowel or bladder control, unintentional weight loss and fevers, chills, or night sweats. Current Status: INTAKE PAIN ASSESSMENT 02/25/2021 04/30/2021 Are you having pain associated with your visit today? 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) - - Current Pain Medications: o Opioids: Butrans 20 mcg/ hour o NSAIDS: Celebrex 200 mg BID o Anti-depressants: o Anti-convulsants: Lyrica 200 mg BID o Muscle relaxants: o Others: Analgesia: adequate Current Anti-Coagulant Use: No PAST Pain Medications (for the chief complaint(s)): Opioids: NSAIDS: Anti-depressants: Anti-convulsants: Muscle Relaxants: Others: Allergies: ALLERGIES Allergen Reactions Gabapentin Mental Status Change, Unknown Nsaids (Non-Steroid* Other: See Comments Cannot have due to Gastric Bypass Tetracycline Other: See Comments Mood Changes (Anger) Tetracycline Hcl Unknown Data Reviewed: Reviewed personally on today's date Relevant Imaging: Cervical Xray 02/06/19 RESULTS: Counting reference: Craniocervical junction. Moderate to severe narrowing at C/C5-C6/C7 disc spaces. Osteophytes anteriorly and uncovertebral osteophytes at C4-C7. Mild hypertrophic narrowing of facet joints. Moderate neuroforaminal narrowing at C4/C5 and C5/C6 and mild narrowing at C6/C7 on the left. Mild neuroforaminal narrowing at C/C5 and C5/C6 on the right. Lumbar MRI 02/12/18 Bone marrow signal/fracture: No evidence of pathologic marrow infiltration. There are fairly extensive endplate reactive changes at L3-4 posteriorly and at L5-S1 anteriorly. No evidence of prior fracture. T12-L1: There is loss of disc space height and minimal bulge but no significant stenosis. L1-L2: Canal and foramina are patent. L2-L3: Canal and foramina are patent L3-L4: There is loss of disc space height, generalized subligamentous disc protrusion, ligamentum flavum hypertrophy, and facet hypertrophic change which combine to cause a mild to moderate central canal and bilateral lateral recess narrowing, a mild left foraminal narrowing, and a slight to mild right foraminal narrowing. L4-L5: There is loss of disc space height and generalized bulge of the disc eccentric to the right causing a mild central canal and right lateral recess narrowing, slight to mild left lateral recess narrowing, and slight bilateral foraminal narrowing. L5-S1: There is left-sided osteophytic ridging that projects into the left lateral recess and left foramina causing a mild to moderate left lateral recess and left foraminal narrowing. Sacrum and iliac wings: The visualized sacrum and iliac wings are within normal limits. Electrodiagnostic Study (EMG): B/L LE EMG 11/29/17 B/L S1 radic Recent labs: Glucose (MG/DL) Date Value 12/31/2019 110 02/05/2019 97 Potassium (MMOL/L) Date Value 02/05/2019 4.4 K (mmol/L) Date Value 12/31/2019 4.5 Sodium (MMOL/L) Date Value 02/05/2019 142 NA (mmol/L) Date Value 12/31/2019 140 Chloride Date Value 12/31/2019 105 MEQ/L 02/05/2019 105 MMOL/L CO2 Date Value 12/31/2019 27 MEQ/L 02/05/2019 29 MMOL/L Creatinine (MG/DL) Date Value 12/31/2019 1.1 02/05/2019 1.10 BUN Date Value 12/31/2019 16 MG/DL 10/05/2017 14 mg/dL Anion Gap (no units) Date Value 10/05/2017 12 Calcium Date Value 12/31/2019 9.4 mg/dL 02/05/2019 9.5 MG/DL GFR (mL/MIN) Date Value 12/31/2019 >60 eGFR- (ML/MIN/1.73M2) Date Value 02/05/2019 85 Pain Procedures: DATE PROCEDURE IMPROVEMENT 09/12/2016 L hip CSI 70% relief Compliance: PDMP website checked and validated. All prescriptions have been APPROPRIATELY filled. No suspiciousactivity was identified. 06/24/2021 by Tejinder Arredondo DO Earliest fill: 07/07/21- Percocet from Surgeon and Dr. Barron Last Drug screen: 01/27/21 appropriate. UDS on 04/30/21 not completed? Last percocet was 3-4 weeks ago Current Medications, Past Medical History, Past Surgical History, Family History, Social History and Review of Systems: On today's date, noted above, I have confirmed and edited as necessary, the PFSH and ROS obtained by others. Physical Exam: 06/24/21 1548 Pulse: 75 Resp: 16 SpO2: 99% Constitutional:overweight HEENT: Normal Cephalic, Atraumatic, Non-icteric sclera Eyes: Conjunctiva clear. No discharge from eyes Cardiovascular: Appears well perfused Lymphatic: No visible regional lymphadenopathy Skin: No visible rashes or ecchymosis Psychiatric: Full affect, Alert, Pleasant Musculoskeletal-Lower: Inspection: ? Symmetric without atrophy, R BKA Palpation: ? Lumbar Paraspinal Tenderness: Discordant on Bilateral side(s) ? Paraspinal Spasms: Moderate ? PSIS Tenderness: None on Bilateral side(s) ? Greater Trochanter Tenderness: Concordant on Left side(s) Spine Range of Motion: ? Flexion: Decreased 50% With end range pain ? Extension: Decreased 50% With end range pain ? Combination extension and rotation pain: Discordant Neuro-Lower: Neural Tension Signs: ? Negative slump in Bilateral lower limbs Sensation: ? diminished to light touch distal to midshin on the L Muscle Tone: ? Normal and symmetric throughout without clonus Strength: ? Iliopsoas (L2): 5 Left, 5 Right ? Quadriceps (L3) 5 Left, 5 Right ? Anterior Tibialis (L4): 5 Left ? Extensor Hallucis Longus (L5): 5 Left ? Gastrocnemius (S1): 5 Left Impression & Plan: 60 year old male with significant past medical history for DM, peripheral neuropathy, HTN, depression, anxiety, obesity s/p bariatric surgery, who presents with complaint(s) oflow back pain and peripheral neuropathy. On exam low back pain is most consistent with tendinopathyof the left gluteus medius tendon. He has had injections to this area in the past and we will plan to repeat these. He recently completed a surgery for right BKA and has weaned off of his acute pain meds, Percocet. We will continue his chronic opioids which he takes for both low back pain and peripheral neuropathy. Diagnoses: (Z79.891) [facility] (current) use of opiate analgesic (primary encounter diagnosis) (G60.9) Idiopathic peripheral neuropathy (F41.9) Anxiety (M67.952) Tendinopathy of left gluteus medius (M47.816) Lumbar spondylosis Dennis Tyler would benefit from the following to decrease pain, improve function and/or work participation, and improve quality of life: Interventional Procedure(s): Left glute med tendon sheath corticosteroid injection under ultrasoundguidance The risks, benefits, alternative treatment options and prognosis of the procedure were discussed and all of the patient's questions/concerns were addressed to the patient's satisfaction. The patient expressed understanding and gave verbal consent to proceed. Medications: Refilled Butrans 20 mcg/h/week patches for another 56 days OIC: The opioid informed consent was reviewed and signed by the patient and a copy was offered (07/09/21) Refilled Lyrica 200 mg twice daily, Celebrex 200 mg twice daily, and Effexor 100 mg twice daily. I am only providing a bridge prescription for the Effexor until the patient is able to establish with a PCP or a psychiatrist. I explained to the patient that I do not treat anxiety/depression and that this would be better managed by them. Functional Congregation: Completed PT, continue HEP daily Additional Studies: UDS for compliance Left hip x-ray Referrals: None Depending on response to the above plan, consider: Consider weaning Butrans patches Follow-up: 6-8 weeks for an office visit Attribution: In addition to reviewing the information noted above, some elements copied from my most recent clinical note(s), including the physical exam (completed in entirety today), and the impression and plan sections, have been updated where appropriate. All reflect current medical decision making from today's date. Tejinder Arredondo DO Pain Management [facility] * Son Villasenor MA - 06/24/2021 3:46 PM EDT Review of Systems Constitutional: Negative for activity change, chills, fever and unexpected weight change. Gastrointestinal: Negative for bowel retention or incontinence Genitourinary: Negative for difficulty urinating. Negative for bladder retention or incontinence Musculoskeletal: Positive for arthralgias, back pain, gait problem and neck pain. Negative for joint swelling, myalgias and neck stiffness. Neurological: Negative for weakness, numbness and headaches. Psychiatric/Behavioral: Negative for dysphoric mood, sleep disturbance and suicidal ideas. The patient is nervous/anxious. documented in this encounterOhio[facility]03-22-2022 [facility]03-15-2022 NotePhysical Therapy Inpatient Evaluation Medical Diagnosis: s/p R. BKA on 05/[address] Lopez Therapy Diagnosis: Rank Code Description 1 R26 Abnormalities of gait and mobility 2 G89.1 Acute pain, not elsewhere classified 3 R26.81 Unsteadiness on feet Demographics: Age: 60Y Gender: Male Primary Language: Togolese Preferred Language: Togolese Referring Service/Team: Medicine Past Medical History: * Per Medical Charting * Past Medical History Chronic pain Past Surgical History ORIF right tibia, total knee replacement, gastric bypass History of Present Illness: Date of Onset: 05/17/21 Additional Information: * Per Medical Charting * 60-year-old male patient with past medical history of chronic pain is admitted to the Ortho team for right below-knee amputation surgery. Patient is s/p right below-knee amputation. We have been consulted for medical management. Patient was seen and examined in the PACU area. Date of Admission: 05/17/2021 9:39:00 AM Rehabilitation Precautions/Restrictions: Fall Precautions, R. BKA: contracture prevention and education Imaging/Testing Results from Chart: n/a SUBJECTIVE Prior Level of Functioning: Indoor Mobility: Patient completed the activities by him/herself, with or without an assistive device, with no assistance from a helper. Stairs: Patient completed the activities by him/herself, with or without an assistive device, with no assistance from a helper. Prior to amputation, patient completely independent with all mobility using no device. Independent with ADLs/IADLs. drives, community ambulator [facility] PATIENT NAME: DENNIS TYLER [facility] [address] MEDICAL REC #: [id number] [place] [address] ADMIT DATE: 05/17/21 SERVICE DATE: 05/18/21 Physical Therapy Assessment Report ATTENDING PHY: Sobeida Lopez MD Prior Device Use: Performance GG110. Prior Device None of Above Yes Patient/Caregiver Goals: Patient's functional goals: get home Pain: Patient currently has pain. Location: incisional pain, phantom pains Type: Acute Quality: Aching. Pain Scale: Visual Analog (VAS). Patient reports a pain level of 3 out of 10. Patient's acceptable level of pain 0 out of 10. Interferes with physical activity. Pain is alleviated by: Pain is exacerbated by: Interventions: Repositioned patient. Home Environment: Patient lives alone, but assistance is available. has a significant other who can assist and stay with patient. She does work parttime 3 days/week Patient lives in a single family home. Home is two levels. Patient is required to manage 15 step(s) within the home, with unilateral handrailing . First floor full bathroom setup available. bathroom on bottom floor with kitchen There are 20 steps to enter the home, with unilateral handrailing Equipment Owned: pt. has access to BSC and shower chair from significant other Social History: Marital Status: has significant other Children: It is unknown whether patient has children Employment Status: not currently working Recreational Activities/Hobbies: spending time with significant other, fishing, cycling OBJECTIVE Cognitive Screen Responsiveness: Alert. Orientation: Oriented to person, place, time, and situation. Following Commands: Patient is able to follow 3-step commands. Range of Motion Upper Extremity: Grossly within functional limits Lower Extremity: Not within functional limits R. knee limited to 70 degrees flexion, limited by swelling/pian Strength Upper Extremity: Grossly within functional limits Lower Extremity: Not within functional limits R. knee not tested, R. hip WFL; L. LE WFL Tone/Spasticity: Within Functional Limits throughout. [facility] PATIENT NAME: DENNIS TYLER [address] [facility] [address] MEDICAL REC #: [id number] [place] [address] ADMIT DATE: 05/17/21 SERVICE DATE: 05/18/21 Physical Therapy Assessment Report ATTENDING PHY: Sobeida Lopez MD Sensation: Grossly intact. Balance: Static balance in a seated position is good. Dynamic balance in a seated position is good. Static balance in a standing position is good. Dynamic balance in a standing position is good. with FWW for support Therapeutic/Functional Activities: Bed Mobility: All bed mobility including supine to sit, rolling, scooting. with independence. Transfers: Patient transferred sit to/from stand with modified independence. Patient used the following equipment: Transfer belt. stands to FWW, no hands-on assistance given Locomotion/Gait/Ambulation: Patient was supervision with gait/ambulation for 100' . Patient requires the following assistive device(s): Rolling walker. 3-point gait pattern d/t R. BKA; v/c for decreased gait speed and mild impulsivity. Go (more content not included)...[facility]03-15-2022 NoteOccupational Therapy Inpatient Evaluation Medical Diagnosis: 1. 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 Lopez OCCUPATIONAL PROFILE AND HISTORY Therapy Diagnosis: Rank Code Description 1 Z74.1 Need for assistance with personal care 2 R26.2 Difficulty in walking, not elsewhere classified Demographics: Age: 60Y Gender: Male Primary Language: Togolese Preferred Language: Togolese Referring Service/Team: Orthopedics Past Medical History: Past Medical History Chronic pain Past Surgical History ORIF right tibia, total knee replacement, gastric bypass History of Present Illness: Date of Surgery: 05/17/21 Additional Information: History of Present Illness 60-year-old male patient with past medical history of chronic pain is admitted to the Ortho team for right below-knee amputation surgery. Patient is s/p right below-knee amputation. We have been consulted for medical management. Patient was seen and examined in the PACU area. ABOVE HISTORY PER MEDICAL CHARTING Date of Admission: 05/17/2021 9:39:00 AM Rehabilitation Precautions/Restrictions: NWB R LE Imaging/Testing Results from Chart: Prior Level of Functioning: Self Care: Patient completed the activities by him/herself, with or without an assistive device, with no assistance from a helper. Functional Cognition: Patient needed partial assistance from another person to complete activities. [facility] PATIENT NAME: DENNIS TYLER [facility] 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 GIRLFRIEND ASSISTS W/ HOMEMANAGEMENT AND ERRANDS Patient/Caregiver Goals: Patient's functional goals: GO HOME Pain: Patient currently has pain. Location: R STUMP Type: Acute Quality: Tender. Pain Scale: Visual Analog (VAS). Patient reports a pain level of 2 out of 10. Patient's acceptable level of pain 2 out of 10. Pain does not interfere with any activity at this time. Pain is alleviated by: PAIN MEDS, REST Pain is exacerbated by: MOVING AROUND Interventions: Repositioned patient. Home Environment: Patient lives alone, but assistance is available. GIRLFRIEND PLANS TO STAY W/ HIM INITIALLY AND THEN HE WILL AT LEAST BE HOME BY HIMSELF FROM 5 AM TO 9 AM WHILE SHE IS AT WORK Patient lives in [place] [address] . Home is two levels. Patient is required to manage 15 step(s) within the home, with ONE HANDRAIL TO GO FROM KITCHEN/BATHRM W/ WALK IN SHOWER TO LIVING RM/BEDRM LEVEL . 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 would include L2-5 decompression and fusion. He feels as though his function and quality are declining and he would like to proceed with surgeryat this time. Discussed this procedure in detail and explained the risks, benefits and alternatives. The risks of surgery include but are not limited to infection, bleeding, injury to nerves or vessels, need for further surgery, ileus, vascular injury, visceral injury, DVT, pulmonary embolism, pneumonia, atelectasis, cardiopulmonary event, pseudoarthrosis, hardware failure, gait abnormality, adjacent segment degeneration. Discussed post-surgery restrictions in detail such as no bending, lifting, or twisting. Answered all questions to the patient?s satisfaction. Patient understands and agrees to proceed with surgery. Consent was signed.Follow up two weeks post operatively or sooner if pain, swelling, numbness or associated symptoms, or concerns develop. All questions answered. Patient in agreement of plan. 12/03/24 1541 <Electronically signed by Amado Rivera MD> Date _ Amado Rivera MD Cosigner Signature: Date (if applicable) CC: ~ [facility] Work Phone: Reason for referral (narrative)* Diagnostic Procedure Only (Routine) - Pending Review Specialty Diagnoses / Procedures Referred By Jarod t Referred To Contact XR IMAGING Diagnoses Tendinopathy of left gluteus medius Procedures XR HIP GENERAL 3V PELV/AP/LAT LEFT RADEX HIP UNILATERAL WITH PELVIS 2-3 VIEWS Tejinder Arredondo DO [address] [place] [address] Xr Imaging Referral ID Status Reason Start Date Expiration Date Visits Requested Visits Authorized [id number] Pending Review Auto-Generat ed Referral 06/24/2021 07/24/2022 1 1 [facility] for referral (narrative)* Diagnostic Procedure Only (Routine) - Pending Review Specialty Diagnoses / Procedures Referred By Contac t Referred To Contact XR IMAGING Diagnoses Acute pain of right shoulder Procedures XR SHOULDER [id number] AP/TRUE AP RIGHT RADEX SHOULDER COMPLETE MINIMUM 2 VIEWS Angeles Umana, DITCHING MACHINE ENGINEER.[employer]AG SKIMMER [address] [place] [address] Xr Imaging Referral ID Status Reason Start Date Expiration Date Visits Requested Visits Authorized [id number] Pending Review Auto-Generat ed Referral 08/31/2021 09/30/2022 1 1 [facility] for referral (narrative)* Consultation (Routine) - Authorized Specialty Diagnoses / Procedures Referred By Contac t Referred To Contact Orthopaedic Surgery Diagnoses Spinal stenosis, lumbar region, with neurogenic claudication Neal Fuentes MD [address] [facility] [address] [place] [address] Sam Rasmussen DO [address] [facility] [address] [address] Referral ID Status Reason Start Date Expiration Date Visits Requested Visits Authorized [id number] Authorized Specialty Services Required 11/21/2023 11/20/2024 1 1 [facility] Work Phone: Reason for referral (narrative)No reason for referral [facility] Work Phone: Reason for visit Narrative* Diagnostic Procedure Only (Routine) - Closed Specialty Diagnoses / Procedures Referred By Jarod t Referred To Contact XR IMAGING Diagnoses Spinal stenosis of lumbar region with neurogenic claudication Failure of spinal cord stimulator, subsequent encounter Procedures XR THORACIC LIMITED 2V AP/LAT RADEX SPINE THORACIC 2 VIEWS Margarita Cabrera, MICHEAL.[employer]AG SKIMMER [address] [place] [address] [place] [id number] Referral ID Status Reason Start Date Expiration Date V isits Requested Visits Authorized [id number] Closed Auto-Generate d Referral 12/08/2022 01/07/2024 1 1 [facility] Summary Purpose Family History No Family History Records Found Relationship Condition Age at Onset Recorded Date/T romina father Cardiac disease Unknown Advance Directives No Advanced Directives Records FoundDocuments on File Type Date Recorded 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 No December 09, 2024 6:33pm Discharge Instructions * Attachments The following attachments cannot be sent through Care Everywhere. * Anxiety Disorder (Togolese) documented in this encounter Assessments Diagnosis Anxiety Anxiety state, unspecified Reason for Referral Specialty Diagnoses / Procedures Referred By Jarod worthington Referred To Contact Radiology Diagnoses [place]'s syndrome, unspecified (HCC) Other specified abnormal findings of blood chemistry Headache, unspecified Other amnesia Procedures CT head w IV contrast Js Guajardo MD [address] [place] [address] Referral ID Status Reason Start Date Expiration Date Visits Re quested Visits Authorized [id number] Closed 10/17/2023 01/14/2024 1 1 Specialty Diagnoses / Procedures Referred By Jarod t Referred To Contact MR IMAGING Diagnoses Spinal stenosis of lumbar region with neurogenic claudication Procedures MRI LUMBAR SPINE WO IVCON MRI SPINAL CANAL LUMBAR W/O CONTRAST MATERIAL Margarita Cabrera, DITCHING MACHINE ENGINEER.SLAG SKIMMER [address] [facility] [place] [address] [place] [id number] Referral ID Status Reason Start Date Expiration Date Visits Requested Visits Authorized [id number] Authorized Auto-Generat ed Referral 12/08/2022 01/07/2024 1 1 Specialty Diagnoses / Procedures Referred By Contac t Referred To Contact PHYSICAL THERAPY Diagnoses Spinal stenosis of lumbar region with neurogenic claudication Procedures CONSULT TO PHYSICAL THERAPY PHYSICAL THERAPY EVALUATION HIGH COMPLEX 45 MINS Margarita Cabrera, DITCHING MACHINE ENGINEER.SLAG SKIMMER [address] [facility] [place] [address] Lauren Enciso, PT Referral ID Status Reason Start Date Expiration Date Visits Requested Visits Authorized [id number] Pending Review Auto-Generat ed Referral 12/08/2022 12/08/2023 1 1 Specialty Diagnoses / Procedures Referred By Contac t Referred To Contact XR IMAGING Diagnoses Spinal stenosis of lumbar region with neurogenic claudication Failure of spinal cord stimulator, subsequent encounter Procedures XR THORACIC LIMITED 2V AP/LAT RADEX SPINE THORACIC 2 VIEWS Margarita Cabrera, DITCHING MACHINE ENGINEER.SLAG SKIMMER [address] [facility] [place] [address] [place] [address] Referral ID Status Reason Start Date Expiration Date V isits Requested Visits Authorized [id number] Closed Auto-Generate d Referral 12/08/2022 01/07/2024 1 1 Specialty Diagnoses / Procedures Referred By Contac t Referred To Contact XR IMAGING Diagnoses Spinal stenosis of lumbar region with neurogenic claudication Failure of spinal cord stimulator, subsequent encounter Procedures XR LUMBAR MOTION 4V AP/LAT/ FLEX/EXT RADEX SPINE LUMBOSACRAL MINIMUM 4 VIEWS Margarita Cabrera, DITCHING MACHINE ENGINEER.SLAG SKIMMER [address] [place] [address] [place] [address] Referral ID Status Reason Start Date Expiration Date V isits Requested Visits Authorized [id number] Closed Auto-Generate d Referral 12/08/2022 01/04/2024 1 1 Chief Complaint and Reason for Visit Chief Complaint Admit Date LUMBAR SPINE June 27, 2024 12: 24pm Room 4 June 27, 2024 1:1 5pm BACK PAIN August 15, 2024 3:45 pm Reason for Visit Admit Date Degenerative disc disease, lumbar June 27, 2024 12:24pm Sacroiliitis June 27, 2024 12: 24pm Chief Complaint Admit Date LUMBAR SPINE June 27, 2024 12: 24pm Room 4 June 27, 2024 1:1 5pm BACK PAIN August 15, 2024 3:45 pm LUMBAR SPINE August 22, 2024 2:15 pm Reason for Visit Admit Date Degenerative disc disease, lumbar June 27, 2024 12:24pm Sacroiliitis June 27, 2024 12: 24pm Degenerative disc disease, lumbar August 042024 2:15pm Degenerative joint disease of sacroiliac joint August 22, 2024 2:15pm Foraminal stenosis of lumbar region August 22, 2024 2:15pm Chief Complaint Admit Date BACK PAIN August 15, 2024 3:45 pm LUMBAR SPINE August 22, 2024 2:15 pm Amb Documentation November 13, 2024 5:00pm lumbar spine December 03, 2024 10:40am Reason for Visit Admit Date Degenerative disc disease, lumbar August 042024 2:15pm Degenerative joint disease of sacroiliac joint August 22, 2024 2:15pm Foraminal stenosis of lumbar region August 22, 2024 2:15pm Spinal stenosis of lumbar re gion with neurogenic claudication August 22, 2024 2:15pm Degenerative disc disease, lumbar Septem jessenia 2024 10:40am Degenerative joint disease of sacroiliac joint December 03, 2024 10:40am Foraminal stenosis of lumbar region Sept ember 2024 10:40am Spinal stenosis of lumbar re gion with neurogenic claudication December 03, 2024 10:40am Chief Complaint Admit Date BACK PAIN August 15, 2024 3:45 pm LUMBAR SPINE August 22, 2024 2:15 pm Amb Documentation November 13, 2024 5:00pm PREOP November 26, 2024 1:21pm lumbar spine December 03, 2024 10:40am ERAS, 360 Lumbar Fusion L2-3, L3-4 and L 4-5 December 09, 2024 9:34am ERAS, 360 Lumbar Fusion L2-3, L3-4 and L 4-5 December 09, 2024 3:42pm ERAS, 360 Lumbar Fusion L2-3, L3-4 and L 4-5 December 09, 2024 6:50pm ERAS, 360 Lumbar Fusion L2-3, L3-4 and L 4-5 December 10, 2024 7:25am ERAS, 360 Lumbar Fusion L2-3, L3-4 and L 4-5 December 10, 2024 9:05am Reason for Visit Admit Date Degenerative disc disease, lumbar August 042024 2:15pm Degenerative joint disease of sacroiliac joint August 22, 2024 2:15pm Foraminal stenosis of lumbar region August 22, 2024 2:15pm Spinal stenosis of lumbar re gion with neurogenic claudication August 22, 2024 2:15pm Degenerative disc disease, lumbar Septem jessenia 2024 10:40am Degenerative joint disease of sacroiliac joint December 03, 2024 10:40am Foraminal stenosis of lumbar region Sept ember 2024 10:40am Spinal stenosis of lumbar re gion with neurogenic claudication December 03, 2024 10:40am Spinal stenosis of lumbar re gion with neurogenic claudication December 09, 2024 3:42pm Status post lumbar spinal fusion December 09, 2024 3:42pm Additional Source Comments (unrecognized sect ion and content) No Status Records FoundNo Status Records FoundNo Status Records FoundNo Status Records FoundNo Status Records FoundNo Status Records FoundNo Status Records FoundNo Status Records FoundNo Status Records FoundNo Status Records FoundNo Status Records FoundNo Status Records Found INFORMATION SOURCE (unrecogn ized section and content) DATE CREATED AUTHOR 08/22/2017 [facility] DATE CREATED AUTHOR AUTHOR'S ORGANIZ ATION 09/27/2018 [facility] DATE CREATED AUTHOR AUTHOR'S ORGANIZ ATION 11/19/2020 [facility] DATE CREATED AUTHOR AUTHOR'S ORGANIZ ATION 05/25/2021 [facility] DATE CREATED AUTHOR AUTHOR'S ORGANIZ ATION 07/17/2021 [facility] DATE CREATED AUTHOR AUTHOR'S ORGANIZ ATION 08/12/2022 [facility] ([place] DATE CREATED AUTHOR AUTHOR'S ORGANIZ ATION 11/23/2023 [facility] DATE CREATED AUTHOR AUTHOR'S ORGANIZ ATION 03/22/2024 [facility] DATE CREATED AUTHOR AUTHOR'S ORGANIZ ATION 05/28/2024 [facility] DATE CREATED AUTHOR AUTHOR'S ORGANIZ ATION 11/07/2024 [facility] DATE CREATED AUTHOR AUTHOR'S ORGANIZ ATION 12/06/2024 [facility] DATE CREATED AUTHOR AUTHOR'S ORGANIZ ATION 12/23/2024 [facility] Reason for Visit (unrecogniz ed section and content) Reason Comments Results Specialty Diagnoses / Procedures Referred By Contac t Referred To Contact Psychology / PSYCHIATRY Diagnoses Mild cognitive impairment of uncertain or unknown etiology Procedures [id number] Js Guajardo MD [address] [place] [address] Julian Cristobal, PhD [address] [address] Referral ID Status Reason Start Date Expiration Date V isits Requested Visits Authorized [id number] Authorized 06/02/2023 2023 4 4 Reason Comments Anxiety Reason Comments Back Pain Neck Pain Hip Pain Specialty Diagnoses / Procedures Referred By Contac t Referred To Contact Physical Medicine and Rehab / PAIN MANAGEMENT Diagnoses 2 mo follow up and refill Procedures EST PATIENT Kirsten Barron MD [address] [place] [address] Tejinder Arredondo DO [address] [place] [id number] Referral ID Status Reason Start Date Expiration Date V isits Requested Visits Authorized [id number] Closed Patient Cleared - Qualified 100% FAS 05/01/2021 07/30/2021 99 99 Reason Comments Follow Up Rx Refills Reason Comments Medication Request refill Reason Comments Insurance Authorization Prior auth for B UPRENOPHINE 20mcg Reason Comments Opened In Error Reason Comments Follow Up Reason Comments New Patient Reason Comments New Patient Left Knee Specialty Diagnoses / Procedures Referred By Contac t Referred To Contact Sports Medicine Diagnoses Pain in left knee Network, [facility] [address] [facility] [address] [place] [address] Toni Serrano MD [address] [facility] [address] [place] [address] Referral ID Status Reason Start Date Expiration Date Visits Re quested Visits Authorized [id number] Closed 04/04/2023 04/03/2024 1 1 Specialty Diagnoses / Procedures Referred By Contac t Referred To Contact Psychology / PSYCHIATRY Diagnoses Mild cognitive impairment of uncertain or unknown etiology Procedures [id number] Js Guajardo MD [address] [place] [address] Julian Cristobal, PhD [address] [place] [address], [facility] [address] [place] [address] Reason Comments Neuropsych Testing Specialty Diagnoses / Procedures Referred By Contac t Referred To Contact Radiology Diagnoses [place]'s syndrome, unspecified (HCC) Other specified abnormal findings of blood chemistry Headache, unspecified Other amnesia Procedures CT head w IV contrast Js Guajardo MD [address] [place] [address] Referral ID Status Reason Start Date Expiration Date Visits Re quested Visits Authorized [id number] Closed 10/17/2023 01/14/2024 1 1 Specialty Diagnoses / Procedures Referred By Contac t Referred To Contact Radiology Diagnoses [place]'s syndrome, unspecified (HCC) Procedures CT abdomen w and wo IV contrast Js Guajardo MD [address] [place] [address] Referral ID Status Reason Start Date Expiration Date Visits Re quested Visits Authorized [id number] Closed 10/17/2023 01/14/2024 1 1 Reason Comments Back Pain Reason Onset Date Comments Anxiety 03/19/2024 Source Comments (unrecognize d section and content) In the event this informatio n is protected by the Federal Confidentiality of Alcohol and Drug Abuse Patient Records regulations: The Federal rules restrict any use of the information to criminally investigate or prosecute any alcohol or drug abuse patient.[facility] the event this information is protected by the Federal Confidentiality of Alcohol and Drug Abuse Patient Records regulations: The Federal rules restrict any use of the information to criminally investigate or prosecute any alcohol or drug abuse patient.[facility] Hospital[facility] the event this information is protected by the Federal Confidentiality of Alcohol and Drug Abuse Patient Records regulations: The Federal rules restrict any use of the information to criminally investigate or prosecute any alcohol or drug abuse patient.[facility] Hospital[facility] the event this information is protected by the Federal Confidentiality of Alcohol and Drug Abuse Patient Records regulations: The Federal rules restrict any use of the information to criminally investigate or prosecute any alcohol or drug abuse patient.[facility] Hospital[facility] the event this information is protected by the Federal Confidentiality of Alcohol and Drug Abuse Patient Records regulations: The Federal rules restrict any use of the information to criminally investigate or prosecute any alcohol or drug abuse patient.[facility] Hospital[facility] the event this information is protected by the Federal Confidentiality of Alcohol and Drug Abuse Patient Records regulations: The Federal rules restrict any use of the information to criminally investigate or prosecute any alcohol or drug abuse patient.[facility] Hospital[facility] the event this information is protected by the Federal Confidentiality of Alcohol and Drug Abuse Patient Records regulations: The Federal rules restrict any use of the information to criminally investigate or prosecute any alcohol or drug abuse patient.[facility] HospitalIn the event this information is protected by the Federal Confidentiality of Alcohol and Drug Abuse Patient Records regulations: The Federal rules restrict any use of the information to criminally investigate or prosecute any alcohol or drug abuse patient.[facility] Hospital[facility] the event this information is protected by the Federal Confidentiality of Alcohol and Drug Abuse Patient Records regulations: The Federal rules restrict any use of the information to criminally investigate or prosecute any alcohol or drug abuse patient.[facility] HospitalIn the event this information is protected by the Federal Confidentiality of Alcohol and Drug Abuse Patient Records regulations: The Federal rules restrict any use of the information to criminally investigate or prosecute any alcohol or drug abuse patient.[facility] Hospital[facility] the event this information is protected by the Federal Confidentiality of Alcohol and Drug Abuse Patient Records regulations: The Federal rules restrict any use of the information to criminally investigate or prosecute any alcohol or drug abuse patient.[facility] HospitalIn the event this information is protected by the Federal Confidentiality of Alcohol and Drug Abuse Patient Records regulations: The Federal rules restrict any use of the information to criminally investigate or prosecute any alcohol or drug abuse patient.[facility] Teams (unrecognized sec tion and content) Mammography Technician Relationship Specialty Start Date End Date Js Guajardo [address] [place] [address] PCP - General Family Medicine 04/26/23 Mammography Technician Relationship Specialty Start Date End Date Js Guajardo MD [address] [place] [address] PCP - General Family Medicine 04/26/23 Mammography Technician Relationship Specialty Start Date End Date Js Guajardo MD [address] [place] [address] PCP - General Family Medicine 04/26/23 Mammography Technician Relationship Specialty Start Date End Date Js Guajardo MD [address] [place] [address] PCP - General Family Medicine 04/26/23 Mammography Technician Relationship Specialty Start Date End Date Js Guajardo MD [address] [place] [address] PCP - General Family Medicine 04/26/23 Team Status: Inactive Member Role Status Dates PB Sanford Attending Provider Active Star t: June 27, 2024 End: June 27, 2024 Team Status: Inactive Member Role Status Dates Dr. Misael Elias MD Attending Provider Active S tart: June 27, 2024 End: June 27, 2024 Team Status: Inactive Member Role Status Dates PB Sanford Attending Provider Active Star t: August 15, 2024 End: August 15, 2024 PB Sanford Referring Provider Active Star t: August 15, 2024 End: August 15, 2024 Team Status: Inactive Member Role Status Dates Dr. Amado Rivera MD Attending Provider Active Start: August 22, 2024 End: August 22, 2024 Team Status: Active Member Role/Relationship Status Dates JS GUAJARDO Primary care physician Active Team Status: Inactive Member Role/Relationship Status Dates PB Sanford Attending physician Active Sta rt: August 15, 2024 End: August 15, 2024 PB Sanford Referring Provider Active Star t: August 15, 2024 End: August 15, 2024 Team Status: Inactive Member Role/Relationship Status Dates Dr. Amado Rivera MD Attending physician Active Start: August 22, 2024 End: August 22, 2024 Team Status: Active Member Role/Relationship Status Dates Dr. Amado Rivera MD Attending physician Active Start: November 13, 2024 Team Status: Inactive Member Role/Relationship Status Dates Dr. Amado Rivera MD Attending physician Active Start: December 03, 2024 End: December 03, 2024 CASANDRA LONDON Primary care physician Active Sta rt: December 03, 2024 End: December 03, 2024 CASANDRA LONDON Referring Provider Active Start: December 03, 2024 End: December 03, 2024 Team Status: Active Member Role/Relationship Status Dates Dr. Misael Elias MD Attending physician Active Start: November 26, 2024 Dr. Amado Rivera MD Referring Provider Active Start: November 26, 2024 Team Status: Inactive Member Role/Relationship Status Dates Dr. Amado Rivera MD Attending physician Active Start: December 03, 2024 End: December 03, 2024 CASANDRA LONDON Primary care physician Active Sta rt: December 03, 2024 End: December 03, 2024 CASANDRA LONDON Referring Provider Active Start: December 03, 2024 End: December 03, 2024 Team Status: Active Member Role/Relationship Status Dates Dr. Amado Rivera MD Admitting physician Active Start: December 09, 2024 Dr. Amado Rivera MD Attending physician Active Start: December 09, 2024 Dr. Amado Rivera MD Referring Provider Active Start: December 09, 2024 Dr. Amado Rivera MD Nurse Practitioner Active Start: December 09, 2024 [facility] Active Sta rt: December 09, 2024 Team Status: Inactive Member Role/Relationship Status Dates Dr. Amado Rivera MD Admitting physician Active Start: December 09, 2024 End: December 10, 2024 Dr. Amado Rivera MD Attending physician Active Start: December 09, 2024 End: December 10, 2024 Dr. Amado Rivera MD Referring Provider Active Start: December 09, 2024 End: December 10, 2024 [facility] Primary care physician Active Sta rt: December 09, 2024 End: December 10, 2024 Dr. Jani Persaud DO Nurse Practitioner Active Start: December 09, 2024 End: December 10, 2024 Dr. Rebecca Valencia , Nurse Practitioner Active S tart: December 09, 2024 End: December 10, 2024 Team Status: Active Member Role/Relationship Status Dates Dr. Amado Rivera MD Admitting physician Active Start: December 09, 2024 Dr. Amado Rivera MD Referring Provider Active Start: December 09, 2024 Dr. Amado Rivera MD Nurse Practitioner Active Start: December 09, 2024 [facility] Primary care physician Active Sta rt: December 09, 2024 Dr. Jani Persaud DO Nurse Practitioner Active Start: December 09, 2024 FREDERICK Haines Attending physician Active Start: December 09, 2024 Team Status: Active Member Role/Relationship Status Dates Dr. Amado Rivera MD Admitting physician Active Start: December 10, 2024 Dr. Amado Rivera MD Referring Provider Active Start: December 10, 2024 Dr. Amado Rivera MD Nurse Practitioner Active Start: December 10, 2024 [facility] Primary care physician Active Sta rt: December 10, 2024 Dr. Jani Persaud DO Nurse Practitioner Active Start: December 10, 2024 Dr. Rebecca Valencia DO Attending physician Active Start: December 10, 2024 Dr. Rebecca Valencia , Nurse Practitioner Active S tart: December 10, 2024 Team Status: Active Member Role/Relationship Status Dates Dr. Amado Rivera MD Admitting physician Active Start: December 10, 2024 Dr. Amado Rivera MD Referring Provider Active Start: December 10, 2024 Dr. Amado Rivera MD Nurse Practitioner Active Start: December 10, 2024 CASANDRA LONDON Primary care physician Active Sta rt: December 10, 2024 Dr. Jani Persaud , Nurse Practitioner Active Start: December 10, 2024 Dr. Rebecca Valencia , Nurse Practitioner Active S tart: December 10, 2024 BP Sanford Attending physician Active Sta rt: December 10, 2024 Goals (unrecognized section and content) Goals may be documented in a n alternate section FOR RECORDS PERTAINING TO PATIENTS WHO ARE OR HAVE BEEN ENROLLED IN A CHEMICAL DEPENDENCY/SUBSTANCEABUSE PROGRAM, SOME INFORMATION MAY BE OMITTED. This clinical summary was aggregated from multiple sources. Caution should be exercised in using it in the provision of clinical care. This summary normalizes information from multiple sources, and as a consequence, information in this document may materially change the coding, format and clinical context of patient data. In addition, data may be omitted in some cases. CLINICAL DECISIONS SHOULD BE BASED ON THE PRIMARY CLINICAL RECORDS. [employer] provides no warranty or guarantee of the accuracy or completeness of information in this document.
== END | disposition home or self-care (01) ==
LOC: MTRAD 16:57
PROVIDERS: Referring Provider Orthopaedic Surgery Orthopaedic Surgery of the Spine; Visit Provider Orthopaedic Surgery Orthopaedic Surgery of the Spine
DX: Z98.1 Arthrodesis status (principal)
CPT/HCPCS: 72100

== ENCOUNTER → 2025-01-02 | Outpatient (CLI) | payer MEDICARE, MEDICAID, SELFPAY ==
[2025-01-04 05:07] LABS: QNTFERON TB Mitogen Value > 10.00 IU/mL (.); QNTFERON TB Nil Value 0.05 IU/mL (.); QNTFERON TB1+ Ag Value 0.03 IU/mL (.); QNTFERON TB2+ Ag Value 0.03 IU/mL (.); QNTIFERON TB Positive Criteria Negative (Negative)
== END | disposition home or self-care (01) ==
LOC: MTLAB 14:54
PROVIDERS: Referring Provider Physician Assistant Medical; Visit Provider Physician Assistant Medical
DX: L40.0 Psoriasis vulgaris (principal)
CPT/HCPCS: 36415; 86480

== ENCOUNTER → 2025-01-09 | Outpatient (CLI) | payer MEDICARE, MEDICAID, SELFPAY ==
[2025-01-09 13:25] LABS: Hematocrit 37.9 % (40-54); Hemoglobin 12.3 g/dL (13.0-16.5); Immature Granulocytes Count 0.020 X10^3/uL (0.0-0.0); Mean Corp Hgb Conc 32.5 g/dL (32-36); Mean Corpuscular Volume 89.8 fL (80-94); Mean Platelet Vol. 10.6 fl (6.2-12.0); NRBC Flagged by Analyzer 0 % (0-5); Platelet Count 219 K/mm3 (150-450); RBC Distribution Width CV 15.4 % (11.6-14.6); RBC Distribution Width SD 51.1 fl (35.1-43.9); Red Blood Count 4.22 M/mm3 (4.6-6.2); White Blood Count 4.4 K/mm3 (4.4-11.0)
== END | disposition home or self-care (01) ==
DX: D72.9 Disorder of white blood cells, unspecified (principal)
CPT/HCPCS: 36415; 85025